=== PATIENT | male | born 1945 | race Two or more races ===

== ENCOUNTER 2024-04-16 23:55 | Inpatient (IN) | payer MEDICARE, SELFPAY ==
[2024-04-16 23:57] VITALS: PULSE 93; RESP 18; O2SAT 98; BMI 20.3
--- NOTE | 2024-04-17 00:03 | XR_ITS ---
Examination: Bilateral hips, AP pelvis, 5 views Technique: AP, lateral views both hips, AP pelvis, 5 views Exam date and time: April 17, 2024 0013 hours INDICATIONS: Patient fell today with injury to both hips, bilateral hip pain FINDINGS: Acute angulated left femoral neck fracture This fracture may also be intertrochanteric, coned AP view Right hip intact as well as bones of the pelvis Severe osteopenia IMPRESSION: Complex left hip fracture, angulated involving the femoral neck and suspicious for involving the intertrochanteric region left hip Recommend CT scan left hip without contrast follow-up
[2024-04-17 00:04] VITALS: BP 117/63; PULSE 87; RESP 20; TEMP 37.1; O2SAT 91
--- NOTE | 2024-04-17 00:05 | XR_ITS ---
Examination: AP chest single view Technique one AP portable semiupright chest single view Exam date and time: April 17, 2024 0011 hours INDICATIONS: Patient fell today with into the chest, chest pain FINDINGS: Mild to moderate elevation right hemidiaphragm Normal heart size No pneumothorax Interstitial disease throughout the lungs Prominent osteopenia IMPRESSION: No pneumothorax pulmonary contusion or hemothorax Clavicles ribs appear intact Abnormal interstitial disease throughout the lungs, differential would include pneumonia, pulmonary fibrosis
--- NOTE | 2024-04-17 00:10 | PD.EDFALL ---
ED Fall Injury RME/HPI General Chief Complaint: Fall Stated Complaint: FALL Time Seen by Provider: 04/17/24 00:17 Arrival date/time: 04/16/24 23:55 RME / HPI RME / HPI Narrative: Dr. Cooper?s Main ED Evaluation: 78yo male with a history of dementia, HTN, hypothyroidism BIBA from [facility] presents to the ED for a fall that occurred just [employer]. Per EMS, patient was initially complaining of left hip pain. Patient currently denies left hip pain or any other associated symptoms. Of note, the patient is confused at baseline. No known allergies. Patient is a full code. Related Data Allergies Allergy/AdvReac Type Severity Reaction Status Date / Time No Known Allergies Allergy Verified 04/17/24 00:02 Review of Systems Review of Systems Systems Reviewed: All systems reviewed, normal except as documented ED Exam Narrative Physical exam: GENERAL APPEARANCE: alert and oriented x 2, well-developed, well-nourished, no acute distress VITALS: All vitals were reviewed and the pulse ox is 94% on room air, which is normal according to my interpretation. HEENT: Normocephalic, atraumatic; pupils equal, round, reactive to light; EOMI; mucous membranes pink, moist; oropharynx clear NECK: Supple LUNGS: CTABL; no wheezes, no rales, no rhonchi HEART: Regular rate, regular rhythm; normal S1, S2; no murmurs ABDOMEN: non distended; normal BS; soft, no tenderness, no guarding, no rebound; no masses, no organomegaly, no hernia BACK: no CVA tenderness EXTREMITIES: LLE is shortened and externally rotated; no edema NEUROLOGIC: awake; alert and oriented x 2; cranial nerves II-XII grossly intact; no focal sensory or motor deficits PSYCHIATRIC: appropriate mood and affect SKIN: warm, dry, normal color; no rashes Course Course Course Narrative: CXR is ordered to r/o pneumothorax. Quality Measures none Orders Category Date Time Status Sizing Machine Operator STAT Care 04/17/24 00:27 Active Continuous Pulse Oximetry ONCE Care 04/17/24 00:27 Active EKG (ED ONLY) *Do not use* NOW Care 04/17/24 00:27 Active Insert IV STAT Care 04/17/24 00:27 Active Consult to Cardiology Stat Cons 04/17/24 00:37 Ordered Consult to Orthopedic Stat Cons 04/17/24 00:36 Ordered EKG (ED Only) Stat Exams 04/17/24 00:27 Draft XR chest 1V portable Stat Exams 04/17/24 00:05 Taken XR hip BI w pelvis 3-4V Stat Exams 04/17/24 00:03 Taken B-Type Natriuretic Peptide Stat Lab 04/17/24 00:35 Received CBC Stat Lab 04/17/24 00:35 Received Comprehensive Metabolic Panel Stat Lab 04/17/24 00:35 Received Free T4 (Free Thyroxine) Stat Lab 04/17/24 00:35 Received Lipase Stat Lab 04/17/24 00:35 Received Magnesium Stat Lab 04/17/24 00:35 Received Partial Thromboplastin Time Stat Lab 04/17/24 00:35 Received Prothrombin Time with INR Stat Lab 04/17/24 00:35 Received Troponin I Stat Lab 04/17/24 00:35 Received Sodium Chloride 0.9% 500 ml [Ns] 500 ml Med 04/17/24 00:26 Active IV 999 mls/hr Vital Signs Vital signs: Vital Signs Temperature 98.8 F 04/17/24 00:04 Pulse Rate 87 04/17/24 00:04 Respiratory Rate 20 04/17/24 00:04 Blood Pressure 117/63 04/17/24 00:04 Pulse Oximetry (%) 91 L 04/17/24 00:04 Oxygen Delivery Method Room Air 04/17/24 00:04 Fall MDM Narrative MDM Narrative:: Scribe Attestation: 04/17/24 Dani Solis, Mallika Faith am scribing for and in the presence of Dr. Cooper. Patient data External records reviewed:: [facility] previous records (Per chart review, patient has) and Retirement records (Per [facility], patient is a full code.) Clinical information provided by:: patient Social determinants that could affect healthcare access:: housing (Pt resides in a SNF.) Patient has the following chronic illnesses:: dementia, HTN, hypothyroidism How is presenting disease/condition affected by chronic disease/condition?: uneffected by Evaluation data The following diagnostics were reviewed and interpreted by me:: lab results (ordered, but are pending at the time of admission), radiology exam(s) and EKG tracing(s) Lab and/or radiology exams considered but not ordered:: none Interpretation Summary: Left hip x-ray shows a femoral neck fracture, no dislocation, no soft tissue swelling, according to my interpretation. CXR shows elevated right hemidiaphragm, chronic changes, no infiltrates, according to my interpretation. EKG done at 0044, NSR, rate of 82, left axis deviation, no ectopy, Q waves in lead III and avF, no signs of acute ischemia, according to my interpretation. Medications / Prescriptions Medications or Prescriptions considered but not ordered:: none Medication administrations:: Medication Administration History Sodium Chloride (Ns) 500 mls @ 999 mls/hr IV .Q31M ONE Stop: 04/17/24 00:56 see above Consultations Consultation(s) initiated? (list below): Yes Consultation #1 (Physician, Specialty, Details): Discussed case with [Dr. Rice] from [orthopedic surgery] regarding [consultation]. Discussed patients ED course, exam findings, labs, and radiology results. Agrees to consult. Requests cardiology consult for pre-op clearance. Time: 00:35 Consultation #2 (Physician, Specialty, Details): Discussed case with [Dr. Avelar] from Hospitalist service regarding admission. Discussed patients ED course, exam findings, labs, and radiology results. The Hospitalist [agrees] to accept the patient for admission. Time: 00:39 Diagnosis Fall Differential Diagnosis: other (fracture, dislocation, contusion) Most likely diagnosis given after review of the tests above:: see below Admission Indicated Admission indicated?: indicated Admission Request Was there a request for admission?: Yes Admission Attestation Admission request attestation: Discussed case with [] from Hospitalist service regarding admission. Discussed patients ED course, exam findings, labs, and radiology results. The Hospitalist [agrees,declines] to accept the patient for admission. Disposition Plan Disposition Plan: Admit Discharge Plan Plan Patient Disposition: Admit Acute Care w/in Hospital Disposition Comment: Admit to Dr. Avelar, Consult Dr. Rice Problem List Clinical Impression: Closed fracture of neck of left femur Patient/Caregiver Discharge Instructions Print Language: Croatian Stand Alone Forms: Sarah Award Info., Patient Portal Info Letter
--- NOTE | 2024-04-17 00:27 | EKG_ITS ---
[facility] Test Date: 2024-04-17 Pat Name: LILLY WHITE Department: Room: - Gender: Male Software Security Architect: : 1945 Requested By: Frandy Lozano Order Number: [id number] Reading MD: Frandy Lozano Measurements Intervals Etoile Rate: 82 P: 42 CO: 203 QRS: -13 QRSD: 93 T: 33 QT: 365 QTc: 428 Interpretive Statements SINUS RHYTHM LOW QRS VOLTAGE IN PRECORDIAL LEADS [QRS DEFLECTION < 1.0 mV IN CHEST LEADS] No previous ECG available for comparison /store/S0/[id number].pdf
[2024-04-17 00:54] LABS: Basophils # (Auto) 0.1 Thou/mm3 (0.0-0.2); Basophils % (Auto) 1 % (0-2.5); Eosinophils # (Auto) 0.3 Thou/mm3 (0.0-0.5); Eosinophils % (Auto) 3 % (0-10); Hematocrit 44.2 % (41.0-53.0); Hemoglobin 14.6 g/dL (13.5-16.0); Immature Granulocytes % (Auto) 1 % (0-0); Immature Granulocytes Auto 0.06 Thou/mm3 (0.00-0.00); Lymphocytes # (Auto) 2.3 Thou/mm3 (1.0-4.8); Lymphocytes % (Auto) 23 % (10-50); Mean Corpuscular Hemoglobin 29.6 pg (25.0-35.0); Mean Corpuscular Volume 90 fL (80-100); Monocytes # (Auto) 0.9 Thou/mm3 (0.0-0.8); Monocytes % (Auto) 9 % (0-12); Neutrophils # (Auto) 6.4 Thou/mm3 (1.8-7.7); Neutrophils % (Auto) 63 % (37-80); Nucleated Red Blood Cell % 0 /100 WBC (0); Platelet Count 261 Thou/mm3 (140-440); RDW Standard Deviation 45.7 fL (35.1-43.9); Red Blood Count 4.94 Miln/mm3 (4.50-5.90); White Blood Count 10.1 Thou/mm3 (3.8-10.6)
[2024-04-17 01:01] LABS: B-Type Natriuretic Peptide 29 pg/mL (0-100)
[2024-04-17 01:04] LABS: Alanine Aminotransferase 12 U/L (10-49); Albumin, Serum 4.2 gm/dL (3.4-4.8); Albumin/Globulin Ratio 1.2 (1.2-2.2); Alkaline Phosphatase 93 U/L (46-116); Anion Gap 8 (7-16); Aspartate Amino Transferase 18 U/L (0-34); BUN/Creatinine Ratio 21 Ratio (12-20); Bilirubin,Total 0.5 mg/dL (0.3-1.2); Blood Urea Nitrogen 30 mg/dL (9-23); Calcium 9.4 mg/dL (8.3-10.6); Calcium (Corrected) 9.4 mg/dL (8.5-10.1); Carbon Dioxide 27.1 mMol/L (20.0-31.0); Chloride 104 mMol/L (98-107); Creatinine (Component) 1.4 mg/dL (0.6-1.3); Estimated Creatinine Clearance 35.1 mL/min (>60); Free T4 (Free Thyroxine) 1.08 ng/dL (0.89-1.76); Globulin 3.5 gm/dL (2.3-3.5); Glucose 98 mg/dL (74-106); INR 1.1 (0.9-1.3); Lipase 62 U/L (12-53); Magnesium 2.1 mg/dL (1.6-2.6); Osmolality,Calculated 283 (275-295); Partial Thromboplastin Time 24.8 Seconds (22.0-36.0); Prothrombin Time 11.7 Seconds (9.0-12.2); Sodium 139 mMol/L (136-145); Total Protein 7.7 gm/dL (5.7-8.2); Troponin I < 0.020 ng/mL (0.0-0.045); eGFR 51 See Note
[2024-04-17] MEDS: SODIUM CHLORIDE 0.9% 500 ML 500 ML 999 ML IV (01:05)
--- NOTE | 2024-04-17 01:24 | PD.RESHP ---
Documentation for date of: 04/17/24 HPI History of Present Illness Chief complaint: Ground Level fall History of present illness: HPI: Patient is a Citizen Of [place]-speaking, interaction facilitated by registered healthcare loom operator. Patient poor historian and majority of history taken from ED notes and SNF notes. Patient is an 78-year-old male with a past medical history significant for essential hypertension and dementia presenting today with a chief complaint of a ground-level fall brought in by ambulance from [facility]. Patient only oriented to self and not complaining of any pain or other symptoms. ED course: BP 117/63, pulse 87, RR 20, temp 98.8 F, SpO2 91% on room air. Labs significant for Hb 14.6, HCT 44.2, BUN 33, CR 1.4, lipase 62. Chest x-ray significant for unfolding of the aorta, poor inspiratory effort, no obvious signs of consolidation, pulmonary edema or pleural effusion. Hip x-ray significant for left acute displaced femoral neck fracture. EKG significant for sinus rhythm, rate 92, incomplete RBBB. No acute ST changes. Patient received 1 L normal saline IV fluid bolus Patient will be admitted for treatment and management of acute left femoral neck fracture. Orthopedics, Dr. Rice consulted and is closely following the case. Appreciate recommendations Cardiology,consulted and is closely following the case. Appreciate recommendations Review of Systems Review of Systems ROS Unobtainable: unobtainable due to mental status Past Medical History Past Medical History Comments PMH COMMENT: Past medical history: - Essential hypertension ? Left hip fracture ? Dementia Medication list: ? Acetaminophen as needed ? Ondansetron as needed Past surgical history: ? Unknown Allergies: ? NKAFDA Social history: Patient is a resident of [facility]. Exam Vital Signs Temp Pulse Resp BP Pulse Ox O2 Del Method 98.8 F 87 20 117/63 91 L Room Air 04/17/24 00:04 04/17/24 00:04 04/17/24 00:04 04/17/24 00:04 04/17/24 00:04 04/17/24 00:04 Narrative Exam Constitutional Alert, oriented x 1 [Person] and comfortable. Elderly male. HEENT Vision grossly intact. Patent nares. Trachea midline Respiratory Chest normal on inspection and clear auscultation bilaterally Cardiovascular S1 and S2 audible, RRR. No murmurs carotid bruit. No gross JVD. Abdominal Soft and non tender to palpation in all quadrants. BS + Genitourinary No bladder tenderness, no flank pain. Normal to palpation Musculoskeletal Extremities tone within normal limits. No LE edema. Left leg shortened and externally rotated. Neurological CN II - XII grossly intact. Extremity motor and sensation grossly intact. Skin Warm, dry and intact. Excoriations multiple on patient's legs and chest Psychiatric Patient has good affect, is cooperative Results: Labs 04/17/24 04:20 04/17/24 04:20 Labs: Short CBC 04/17/24 Range/Units 00:35 WBC 10.1 (3.8-10.6) Thou/mm3 Hgb 14.6 (13.5-16.0) g/dL Hct 44.2 (41.0-53.0) % Plt Count 261 (140-440) Thou/mm3 BMP 04/17/24 00:35 Sodium 139 Potassium 4.0 Chloride 104 Carbon Dioxide 27.1 BUN 30 H Creatinine 1.4 H Glucose 98 Calcium 9.4 Cardiac Enzymes 04/17/24 Range/Units 00:35 Troponin I < 0.020 (0.0-0.045) ng/mL Liver Function 04/17/24 Range/Units 00:35 Total Bilirubin 0.5 (0.3-1.2) mg/dL AST 18 (0-34) U/L ALT 12 (10-49) U/L Alkaline Phosphatase 93 (46-116) U/L Albumin 4.2 (3.4-4.8) gm/dL Quality Measures Quality Measures none Advance care planning discussed with:: other (POLST form) Medications Home Medications and Allergies Home Medications ?Medication ?Instructions ?Recorded ?Confirmed ?Type melatonin 5 mg tablet 5 mg PO HS PRN Insomnia 04/17/24 04/17/24 History multivit,tx with iron 27 1 tab PO QDAY 04/17/24 04/17/24 History iz-[id number] acid 0.4 mg-minerals tablet ondansetron 4 mg disintegrating 4 mg PO Q6H PRN Nausea 04/17/24 04/17/24 History tablet Allergies Allergy/AdvReac Type Severity Reaction Status Date / Time No Known Allergies Allergy Verified 04/17/24 00:02 Visit Medications Acetaminophen (Acetaminophen 325 Mg Tablet) 650 mg PO Q6H PRN PRN Reason: Fever >101.5 Stop: 02/09/25 01:05 Heparin Sodium (Porcine) (Heparin Sod Inj 5000 Unit/Ml Vial) 5,000 unit SC Q8HR [facility] Stop: 05/01/24 05:59 Sodium Chloride (Ns) 1,000 mls @ 75 mls/hr IV .[id number] [facility] Stop: 04/17/24 14:34 Morphine Sulfate (Morphine Sulf Inj 10 Mg/Ml Vial) 2 mg IVP Q4H PRN PRN Reason: PAIN SCALE 7-10 (Severe Stop: 04/22/24 01:05 Discontinued Medications Sodium Chloride (Ns) 500 mls @ 999 mls/hr IV .Q31M ONE Stop: 04/17/24 00:56 Last Admin: 04/17/24 01:05 Dose: 999 mls/hr Assessment & Plan Plan Patient is a Citizen Of [place]-speaking, interaction facilitated by registered healthcare loom operator. Patient poor historian and majority of history taken from ED notes and SNF notes. Patient is an 78-year-old male with a past medical history significant for essential hypertension and dementia presenting today with a chief complaint of a ground-level fall brought in by ambulance from [facility]. Patient will be admitted for treatment and management of acute left femoral neck fracture. 1. Ground-level fall 2. Acute left femoral neck fracture Patient had a ground-level fall at [facility]. On exam patient's left lower extremity shortened and externally rotated. On hip x-ray, left femoral neck fracture. Plan: ? N.p.o. ? Maintenance IV fluids normal saline at 75 cc/hour ? Acetaminophen 650 Mg p.o. every 6 hourly as needed for fever ? Morphine 2 Mg IV Q4 hourly as needed for pain 7?10 ? Cardiology consulted for cardiac clearance. ? Orthopedics, Dr. Rice consulted and closely following the case. Appreciate recommendations 3. Acute Kidney Injury Prerenal vs renal On admission patient's CR 1.4 Most likely prerenal due to poor oral intake. Plan: ? Maintenance IV fluids normal saline at 75 cc/hour ? Avoid nephrotoxic agent ? Renally dose medication 4. Essential hypertension On admission BP 117/63 Patient does not appear to be on any home medication Plan: ? Monitor blood pressures while in hospital 5. Dementia At baseline patient is oriented to self only. Health maintenance: Disposition: Awaiting Ortho recs, Cardiology clearance Diet: NPO Lines: pIVs GI Prophylaxis: None Thrombo Prophylaxis: Heparin Code status: FULL CODE Plan of care discussed with Attending Dr. Valentino Aggawral MD PGY 1 Attending Provider Attestation/Addendum Pt was evaluated and plan formulated together with the housestaff team. I have reviewed the residents note above and agree with most of its content. Please refer to the residents note for additional details.
[2024-04-17 03:00] VITALS: BP 121/79; PULSE 74; RESP 18; TEMP 36.4; O2SAT 97
[2024-04-17] MEDS: SODIUM CHLORIDE 0.9% 1000 ML 1,000 ML 75 ML IV (03:11)
[2024-04-17 04:54] LABS: Basophils # (Auto) 0.1 Thou/mm3 (0.0-0.2); Basophils % (Auto) 0 % (0-2.5); Eosinophils # (Auto) 0.1 Thou/mm3 (0.0-0.5); Eosinophils % (Auto) 1 % (0-10); Hematocrit 44.9 % (41.0-53.0); Hemoglobin 14.8 g/dL (13.5-16.0); Immature Granulocytes % (Auto) 1 % (0-0); Immature Granulocytes Auto 0.07 Thou/mm3 (0.00-0.00); Lymphocytes # (Auto) 1.4 Thou/mm3 (1.0-4.8); Lymphocytes % (Auto) 11 % (10-50); Mean Corpuscular Hemoglobin 29.5 pg (25.0-35.0); Mean Corpuscular Volume 89 fL (80-100); Monocytes # (Auto) 0.7 Thou/mm3 (0.0-0.8); Monocytes % (Auto) 6 % (0-12); Neutrophils % (Auto) 81 % (37-80); Nucleated Red Blood Cell % 0 /100 WBC (0); Platelet Count 261 Thou/mm3 (140-440); RDW Standard Deviation 45.2 fL (35.1-43.9); Red Blood Count 5.02 Miln/mm3 (4.50-5.90); White Blood Count 12.4 Thou/mm3 (3.8-10.6)
[2024-04-17 05:07] LABS: Anion Gap 7 (7-16); BUN/Creatinine Ratio 22 Ratio (12-20); Blood Urea Nitrogen 29 mg/dL (9-23); Calcium 9.3 mg/dL (8.3-10.6); Carbon Dioxide 25.6 mMol/L (20.0-31.0); Chloride 106 mMol/L (98-107); Creatinine (Component) 1.3 mg/dL (0.6-1.3); Estimated Creatinine Clearance 37.8 mL/min (>60); Glucose 111 mg/dL (74-106); Magnesium 2.1 mg/dL (1.6-2.6); Osmolality,Calculated 284 (275-295); Potassium 4.2 mMol/L (3.4-5.1); Sodium 139 mMol/L (136-145); eGFR 56 See Note
[2024-04-17 06:30] VITALS: BP 145/97; PULSE 70; RESP 16; TEMP 36.3; O2SAT 99
[2024-04-17] MEDS: HEPARIN SOD INJ 5000 UNIT/ML VIAL SC (06:48)
--- NOTE | 2024-04-17 08:00 | PC.NURSE ---
Assuming care of patient. Patient Oriented only to self. He states he does not know where he is at and he is not in pain.
[2024-04-17 08:17] LABS: Phosphorous 2.5 mg/dL (2.4-5.1)
[2024-04-17 09:00] VITALS: BP 140/93; PULSE 82; RESP 17; TEMP 36.4; O2SAT 100
--- NOTE | 2024-04-17 09:00 | ESCONSULT_ITS ---
HPI Consult details Reason for consultation narrative: Left hip pain History of present illness: Harvey is an 78-year-old male who was at [facility] and presented with a fall last night. He is alert and oriented x 1. He does have dementia and does not sign his own consents. His daughter lives in [place] who signed his consents. I talked to her extensively on the phone. He does not walk with any assistive device Past Medical History Past Medical History Comments PMH COMMENT: Dementia Meds Home Medications and Allergies Home Medications ?Medication ?Instructions ?Recorded ?Confirmed ?Type melatonin 5 mg tablet 5 mg PO HS PRN Insomnia 04/17/24 04/17/24 History multivit,tx with iron 27 1 tab PO QDAY 04/17/24 04/17/24 History kb-lsbkrwl-xihpk acid 0.4 mg-minerals tablet ondansetron 4 mg disintegrating 4 mg PO Q6H PRN Nausea 04/17/24 04/17/24 History tablet Allergies Allergy/AdvReac Type Severity Reaction Status Date / Time No Known Allergies Allergy Verified 04/17/24 00:02 Exam Vital Signs Temp Pulse Resp BP Pulse Ox O2 Del Method 97.4 F 70 16 145/97 H 99 Room Air 04/17/24 06:30 04/17/24 06:30 04/17/24 06:30 04/17/24 06:30 04/17/24 06:30 04/17/24 06:30 Additional findings Additional findings: Patient is in no acute distress and is cooperative with the examination today. Breathing is nonlabored. In no respiratory distress. Patient has no paraspinal tenderness. Spinal deformity cannot be appreciated. Bilateral extremities were evaluated and demonstrates sensation intact to light touch. Palpable pedal pulses are present. No significant edema is present. Bilateral knees were examined and the patient has full strength and range of motion.. The right hip was examined. Patient was able to flex to 90 degrees, adduct to 30 degrees, abduct to 40 degrees, internally rotate to 20 degrees, and externally rotate to 20 degrees. Patient has a negative logroll. Stinchfield is negative. The patient is nontender diffusely to touch. The left hip was examined. The Left hip is tender to palpation. He has pain with any rotation. He is shortened on the left X-rays demonstrate in a acute left displaced femoral neck fracture with shortening Results - Ortho Labs 04/17/24 04:20 04/17/24 04:20 Labs: Short CBC 04/17/24 04/17/24 Range/Units 00:35 04:20 WBC 10.1 12.4 H (3.8-10.6) Thou/mm3 Hgb 14.6 14.8 (13.5-16.0) g/dL Hct 44.2 44.9 (41.0-53.0) % Plt Count 261 261 (140-440) Thou/mm3 BMP 04/17/24 04/17/24 00:35 04:20 Sodium 139 139 Potassium 4.0 4.2 Chloride 104 106 Carbon Dioxide 27.1 25.6 BUN 30 H 29 H Creatinine 1.4 H 1.3 Glucose 98 111 H Calcium 9.4 9.3 Cardiac Enzymes 04/17/24 Range/Units 00:35 Troponin I < 0.020 (0.0-0.045) ng/mL Liver Function 04/17/24 Range/Units 00:35 Total Bilirubin 0.5 (0.3-1.2) mg/dL AST 18 (0-34) U/L ALT 12 (10-49) U/L Alkaline Phosphatase 93 (46-116) U/L Albumin 4.2 (3.4-4.8) gm/dL Assessment & Plan Problem List (1) Closed fracture of neck of left femur: Status: Acute Assessment and plan: Patient is an 78-year-old Male with dementia and a left displaced femoral neck fracture. He is alert and orient x 1 and his daughter who lives in [place] signs his consents. I talked to her extensively on the phone. I discussed different treatment options including nonoperative treatment versus a hemiarthroplasty. The Daughter would like to proceed with a left hip hemiarthroplasty. I discussed the risk of the surgery including infection, dislocation, fracture, medical complications from having surgery at his age. He is fairly healthy for his age. We will plan to proceed with left hip hemiarthroplasty today -N.p.o. now -Plan for surgery today -We obtained consent with his daughter Daina by phone [phone]
[2024-04-17 11:39] VITALS: BP 149/80; PULSE 86; RESP 17; O2SAT 96
--- NOTE | 2024-04-17 12:09 | PC.NURSE ---
THIS NURSE SPOKE WITH DAUGHTER VICTOR M WHITE, DAUGHTER VERBALIZES UNDERSTANING OF SURGICAL PROCEDURE FOR LEFT HIP HEMIARTHROPLASTY, STATES SHE DOES NOT HAVE ANY QUESTIONS REGARDING SURGICAL PROCEDURE AND GIVES TELEPHONE CONSENT FOR PROCEDURE AT THIS TIME. TELEPHONE CONSENT VERIFIED BY SECOND NURSE CORIN ANAYA.
--- NOTE | 2024-04-17 13:59 | ESCONSULT_ITS ---
<Statement entered by Brennan Ray MD - 04/18/24 08:15> I have personally seen and examined the patient separately on the above date of service and discussed the plan of care with the resident. I reviewed the resident Dr. Willson consultation progress note and agree with the resident findings and plan in the note above and have also edited the documentation to reflect my findings and plan. 78-year-old male with a past medical history of essential hypertension, dementia [facility]. Patient unable to give much history and fall is thought to be mechanical. Patient complained of some left hip pain. Orthopedic surgery was consulted for further evaluation as x-rays did demonstrate acute displaced femoral neck fracture with shortening of the left leg and patient is planned for hemiarthroplasty. Cardiology consulted for further preoperative cardiac risk assessment. In the emergency department vitals appears to be stable patient is in pain. WBC manage elevated 12.4, hemoglobin is in normal range. Patient creatinine is 1.3 and BUN is 29 appears to be mildly dehydrated electrolyte appears to be in normal range. Troponins were negative liver functions just normal. Home medications do not show any antihypertensives. EKG performed showed normal sinus rhythm with low voltage in the precordial leads but no acute ST-T changes. Chest x-ray showed no acute pathology and x-ray hip showed left femoral neck fracture as noted above. Plan: Preoperative cardiac risk assessment. Patient does not have significant cardiac risk factors documented. Patient unable to provide much history but his medications are to not show patient has any history of diabetes and apart from the history of hypertension. Will need to obtain corroborative history from the daughter Daina. Patient is proposed for an intermediate risk surgery for the left femoral fracture with hemiarthroplasty. Patient will need general anesthesia which is also intermittent risk surgery. Patient baseline functional status is less than 4 points. Does not appear to have any history of diabetes mellitus on insulin CKD with creatinine greater than 4 and no history of stroke except that he has dementia EKG showed normal sinus rhythm without acute ST-T changes except for low voltage in the precordial leads. Echo ordered along with TSH A1c and lipid panel for further cardiac risk stratification. Overall patient RCRI risk score is 0 and appears to be a low cardiac risk for the surgery as he does not have any symptoms of heart failure or unstable arrhythmias or elevated troponins or any evidence of VT but will await for the echocardiogram. Possible mild KATIE with creatinine of 1.4 and BUN of 13 secondary to poor oral intake and recommend to continue IV hydration for now. Management of rest of the medical conditions as per primary team and other consultants. Thank you for the consult and allowing me to participate in the care of the patient. Cardiology will continue to follow. Brennan Ray M.D. Interventional Cardiology HPI Data of Consult Requesting Physician: Javier Avelar MD Admitting Provider: Javier Avelar MD Attending Provider: Javier Avelar MD Primary Care Provider: Cm Palmer MD Consult Narrative History of present illness: HPI is limited as patient has poor historian and is refusing to answer questions Harvey is an 78 y/o male with PMHx past medical history of essential hypertension and (dementia?) who is brought in [facility] from [facility] for an evaluation of a ground-level fall, with no syncope or head trauma. Patient is a poor historian, Macanese-speaking as well. He refuses to answer majority of questions and also be examined and a majority of history is obtained through chart review and through information I can get from him. He says that he is in the hospital, but is unsure why. Patient is not fully oriented to time and environment. Chart review does show pt has dementia but has no dementia medicines upon [facility] rec. Upon review, primary contact is daughter named Daina. Cardiology consulted for cardiac clearance for this pt to undergo possible surgical intervention ED course: Patient arrived to the ED with a blood pressure of 117/63, pulse of 87, respiratory rate of 20, temperature of 98.8, oxygen saturation of 91% on room air. Patient was worked up and was found to have a hemoglobin of 14.6, BUN and creatinine of 33 and 1.4 respectively, glucose of 111, magnesium was 2.1, potassium of 4.2 EKG showed normal sinus rhythm rate of [address] changes. X-ray of hip showed evidence for left femoral neck hip fracture. Orthopedic was consulted for intervention in addition with cardiology for clearance. Patient was given 1 L and started on maintenance fluids. Medical history: As above Surgeries: Unknown Medicines: Acetaminophen, Dulcolax, melatonin, Zofran, MiraLAX, senna, multivitamins, Fleet Enema, milk of mag Allergies no known allergies Family history: Unknown Social history: Coming from [facility] cc:: cc: Javier Avelar MD Review of Systems Review of Systems Narrative Review of Systems: Limited as pt is poor historian and does not want to answer questions Denies having any hip pain or pain throughout his body Exam Vital Signs Temp Pulse Resp BP Pulse Ox O2 Del Method 97.6 F 86 17 149/80 H 96 Room Air 04/17/24 09:00 04/17/24 11:39 04/17/24 11:39 04/17/24 11:39 04/17/24 11:39 04/17/24 11:39 Narrative Exam Physical exam is limited as patient did not want to be examined General: AAOx1, NAD, norwegian speaking male HEENT: Moist mucous membranes, conjunctiva clear, EOMI, PERRLA, Cardiovascular: S1, S2, radial pulses +2 bilat, RRR Pulmonary: CTAB bilat no cough, no wheezing GI: No tenderness to light or deep palpitation, no guarding, rigidity, rebound tenderness or distension Extremities: No presence of trace or pitting edema in lower extremities bilaterally, dorsalis pedis pulses +2 bilaterally MSK: L hip and proximal IT band taut and some bruising however no skin discoloration, bandage over L femoral hip near Neuro: AAOx1 Psych: Non cooperative Results Labs 04/17/24 04:20 04/17/24 04:20 Labs: Short CBC 04/17/24 04/17/24 Range/Units 00:35 04:20 WBC 10.1 12.4 H (3.8-10.6) Thou/mm3 Hgb 14.6 14.8 (13.5-16.0) g/dL Hct 44.2 44.9 (41.0-53.0) % Plt Count 261 261 (140-440) Thou/mm3 BMP 04/17/24 04/17/24 00:35 04:20 Sodium 139 139 Potassium 4.0 4.2 Chloride 104 106 Carbon Dioxide 27.1 25.6 BUN 30 H 29 H Creatinine 1.4 H 1.3 Glucose 98 111 H Calcium 9.4 9.3 Cardiac Enzymes 04/17/24 Range/Units 00:35 Troponin I < 0.020 (0.0-0.045) ng/mL Liver Function 04/17/24 Range/Units 00:35 Total Bilirubin 0.5 (0.3-1.2) mg/dL AST 18 (0-34) U/L ALT 12 (10-49) U/L Alkaline Phosphatase 93 (46-116) U/L Albumin 4.2 (3.4-4.8) gm/dL Quality Measures Quality Measures none Advance care planning discussed with:: patient Medications Home Medications and Allergies Home Medications ?Medication ?Instructions ?Recorded ?Confirmed ?Type melatonin 5 mg tablet 5 mg PO HS PRN Insomnia 04/17/24 04/17/24 History multivit,tx with iron 27 1 tab PO QDAY 04/17/24 04/17/24 History jf-axhhvmq-paxiv acid 0.4 mg-minerals tablet ondansetron 4 mg disintegrating 4 mg PO Q6H PRN Nausea 04/17/24 04/17/24 History tablet Allergies Allergy/AdvReac Type Severity Reaction Status Date / Time No Known Allergies Allergy Verified 04/17/24 00:02 Visit Medications Acetaminophen (Acetaminophen 325 Mg Tablet) 650 mg PO Q6H PRN PRN Reason: Fever >100.3 or pain 1-3 Stop: 05/17/24 01:05 Sodium Chloride (Ns) 1,000 mls @ 75 mls/hr IV .[id number] KALLI Stop: 04/17/24 14:34 Last Admin: 04/17/24 03:11 Dose: 75 mls/hr Morphine Sulfate (Morphine Sulf Inj 10 Mg/Ml Vial) 2 mg IVP Q4H PRN PRN Reason: PAIN SCALE 7-10 (Severe Stop: 04/22/24 01:05 Discontinued Medications Acetaminophen (Acetaminophen 325 Mg Tablet) 650 mg PO Q6H PRN PRN Reason: Fever >101.5 Stop: 05/17/24 01:05 Heparin Sodium (Porcine) (Heparin Sod Inj 5000 Unit/Ml Vial) 5,000 unit SC Q8HR KALLI Stop: 05/01/24 05:59 Last Admin: 04/17/24 06:48 Dose: 5,000 unit Sodium Chloride (Ns) 500 mls @ 999 mls/hr IV .Q31M ONE Stop: 04/17/24 00:56 Last Infusion: 04/17/24 01:51 Dose: Infused Assessment & Plan Plan Assessment Harvey is an 78 y/o male with PMHx past medical history of essential hypertension and (dementia?) who is brought in BIB[facility] from [facility] who is admitted for L femoral neck hip fracture that will require surgical intervention. #L femoral neck hip fracture Patient will require cardiac clearance for this surgery Upon reviewing information that we have been using revised cardiac index patient has 0 points calculated with the risk of major cardiac event 3.9% Will get further information to review to further stratify patient on a cardiac level Unsure if patient is on any blood thinners, hemoglobin stable ~14 EKG showed low voltage, NSR, rate 82, no ST changes Unsure if pt has CKD, however, Cr 1.4 Further risk stratification limited as pt does not provide much information and he is AAOx1 Plan: ? Orthopedic surgery, Dr. Rice, on consult appreciate recs ?A1c, lipid panel, TSH to further classify patient's cardiac risk #History of hypertension Unsure if patient is on blood pressure medicines at home none reviewed upon med rec Plan: ? Wait upon med rec #?KATIE on CKD Do not have baseline on patient, patient came with a creatinine of 1.4, currently at 1.3 Was given 1 L in the ER and also started on maintenance fluids Plan: ?Continue with fluids ?Trend with CMP Patient seen and care discussed with my attending physician, Dr. Flor Cruz, PGY-1
--- NOTE | 2024-04-17 14:15 | ESPR_ITS ---
<Statement entered by Alfonzo Lugo MD - 04/17/24 21:04> This patient is a 78-year-old male with past medical history of hypertensionadmitted last night for left hip/femur neck fracture due to ground- level fall. Cardiology was consulted for cardiac clearance. Orthopedics, Dr. Ch has been consulted for possible surgery. Vitals were stable. WBC count was 12.4. Kidney function showed BUN 29 creatinine 1.3. Patient had mild KATIE. Patient is currently receiving pain regime. Orthopedics reported that he could not perform surgery until Saturday therefore diet was resumed. Will likely follow-up on further recommendations and continue with pain management. Rest of the labs look unremarkable. All labs and orders were reviewed. I saw and examined the patient, and I agree with current management stated by Dr Zeyad MD,PGY1. Plan of care was discussed with the attending physician and resident physician. Disclaimer: Despite multiple revisions, due to the dictation software being used, the document bellow may not be free of grammatical errors including phonetic/typographic errors. However, this does not deter from our commitment to providing health care in the patient's best interest in mind. Dr. Kip MD, PGY 2 Documentation for date of: 04/17/24 Subjective Subjective Interval history: Patient is a 78-year-old male with a limited past medical history with dementia (only melatonin was started), hypertension, generalized weakness, and dysphagia who was admitted secondary to femur neck fracture. Unable to gather pertinent past medical history from patient or symptoms. Patient kept repeating leave me alone. Patient was alert but not oriented x 3. Cardiology consulted. Dr. Rice will schedule patient for Saturday morning for surgery. Exam Vital Signs Temp Pulse Resp BP Pulse Ox O2 Del Method 97.6 F 86 17 149/80 H 96 Room Air 04/17/24 09:00 04/17/24 11:39 04/17/24 11:39 04/17/24 11:39 04/17/24 11:39 04/17/24 11:39 Narrative Exam General Appearance: Alert & Oriented X0, well-nourished male who is lying in bed in mild distress but NOT grimacing from pain. Palpated left leg, no acute distress noted. HEENT: Skull symmetrical and atraumatic. Conjunctivae pale pink and moist. Pupils equal, round, reactive to light and accommodation (PERRL). External ear without lesion or discharge. Straight, nares patient, mucosa pink, no discharge. No thyroid nodule appreciated. No cervical lymphadenopathy. Cardio: Normal Rate and Rhythm with S1 and S2 heart sounds. No murmurs or extra heart sounds auscultated. No bruits on carotid auscultation. No peripheral edema or cyanosis. Lungs: Symmetric with good expansion. Chest and back non-tender. Breath sounds vesicular without crackles, wheezing or rhonchi Abdomen: Non-tender, Non-distended, Normal Reactive Bowel Sounds Neuro: YES Alert, NOT cooperative, NO oriented to NO person, NO place, and NO time. Aphasic. CN grossly intact. Difficult to evaluate as patient does not follow commands and unable to access motor, 2/5 at least patient does withdrawal to tough. Sensation intact. Objective Labs 04/17/24 04:20 04/17/24 04:20 Labs: Laboratory Results - last 24 hr 04/17/24 04/17/24 00:35 04:20 WBC 10.1 12.4 H RBC 4.94 5.02 Hgb 14.6 14.8 Hct 44.2 44.9 MCV 90 89 MCH 29.6 29.5 MCHC 33.0 33.0 RDW Std Deviation 45.7 H 45.2 H Plt Count 261 261 Neut % (Auto) 63 81 H Lymph % (Auto) 23 11 [place] % (Auto) 9 6 Eos % (Auto) 3 1 Baso % (Auto) 1 0 Neut # (Auto) 6.4 10.0 H Lymph # (Auto) 2.3 1.4 [place] # (Auto) 0.9 H 0.7 Eos # (Auto) 0.3 0.1 Baso # (Auto) 0.1 0.1 Immature Gran # (Auto) 0.06 H 0.07 H Absolute Nucleated RBC 0.00 0.00 Immature Gran % 1 H 1 H Nucleated RBC % 0 0 PT 11.7 INR 1.1 APTT 24.8 Sodium 139 139 Potassium 4.0 4.2 Chloride 104 106 Carbon Dioxide 27.1 25.6 Anion Gap 8 7 BUN 30 H 29 H Creatinine 1.4 H 1.3 Estim Creat Clear Calc 35.1 L 37.8 L eGFR 51 L 56 L BUN/Creatinine Ratio 21 H 22 H Glucose 98 111 H Calculated Osmolality 283 284 Calcium 9.4 9.3 Corrected Calcium 9.4 Phosphorus 2.5 Magnesium 2.1 2.1 Total Bilirubin 0.5 AST 18 ALT 12 Alkaline Phosphatase 93 Troponin I < 0.020 B-Natriuretic Peptide 29 Total Protein 7.7 Albumin 4.2 Globulin 3.5 Albumin/Globulin Ratio 1.2 Lipase 62 H Free T4 1.08 Quality Measures Quality Measures none Advance care planning discussed with:: other Assessment & Plan Assessment Current Active Medications: Generic Name Dose Route Start Last Admin Trade Name Freq PRN Reason Stop Dose Admin Acetaminophen 650 mg 04/17/24 01:26 Acetaminophen 325 Mg Tablet PO 05/17/24 01:05 Q6H PRN Fever >100.3 or pain 1-3 Sodium Chloride 1,000 mls @ 75 mls/hr 04/17/24 01:15 04/17/24 03:11 Ns IV 04/17/24 14:34 75 mls/hr .[id number] KALLI Administration Morphine Sulfate 2 mg 04/17/24 01:06 Morphine Sulf Inj 10 Mg/Ml Vial IVP 04/22/24 01:05 Q4H PRN PAIN SCALE 7-10 (Severe Plan Patient is a 78-year-old male with a limited past medical history with dementia (only melatonin was started), hypertension, generalized weakness, and dysphagia who was admitted secondary to femur neck fracture. # Ground-level fall # Acute left femoral neck fracture Patient had a ground-level fall at [facility]. On exam patient's left lower extremity shortened and externally rotated. On hip x-ray, left femoral neck fracture. Plan: -Regular Diet, no surgery planned until Saturday morning ? Acetaminophen 650 Mg p.o. every 6 hourly as needed for fever ? Morphine 2 Mg IV Q4 hourly as needed for pain 7?10 ? Cardiology consulted for cardiac clearance. ? Orthopedics, Dr. Rice consulted and closely following the case. Appreciate recommendations # Acute Kidney Injury Prerenal vs renal Likely pre-renal secondary to poor oral intake Plan: ? Avoid nephrotoxic agent ? Renally dose medication # Essential hypertension On admission BP 117/63 Patient does not appear to be on any home medication Plan: ? Monitor blood pressures while in hospital # Dementia At baseline patient is oriented to self only. Plan: Consider Melatonin Health maintenance: Disposition: Awaiting Ortho recs, Cardiology clearance & regular diet Diet: regular diet Lines: pIVs GI Prophylaxis: None Thrombo Prophylaxis: Heparin Code status: FULL CODE - The patient's plan was discussed with attending Dr. Maria and senior residents Dr. Kip Jeffers MD PGY1 Internal Medicine Attending Provider Attestation/Addendum I have discussed and was present for the essential components of the history, physical examination, diagnosis, and treatment plan with the resident. I agree with the patient's care as documented by the resident and amended herein by me. Arnav Maria, DO. Patient seen and evaluated this AM. Per Ortho, unable to perform surgery today, will likely have to wait till Saturday. Will optimize pain control until that time. Although this document has been carefully reviewed, there may still be some phonetic and other typographical errors. These errors are purely grammatical due to imperfections in the software program and should not be construed in any way to compromise the substance of the patient's medical care during this visit.
--- NOTE | 2024-04-17 14:39 | PC.CC ---
Patient is a 78 year-old male who presents to the hospital for a hip fracture. Tatiana ROBB made [id number] contact with patient. Patient is not alert and oriented. DERIKW made telephone contact with patient's daughter, Sandy Jeffers to gain collateral information regarding the patient. She reports her father has been living at [facility] for the past 6 months. She states she last come to see him on and he was ambulates independendtly. Patient is full assist with his ADLs. Patient's daughter stated that she is his medical decision maker as the rest of his children are estranged. She denies there being a POA or Advance Health Care Directive in place. Patient's daughter reports that she was notified of the fall. Tatiana ROBB made contact with Aisha at [facility] to inquire about the fall. Aisha reports that the patient is a wander and walks up and down the chapin due to his dementia. Patient for some reason had his head down when he was turning left to turn around and attempted to grab the guardrail and fell. She reports he had appropriate shoes on and they were tied. Per Aisha, patient is a long-term patient of theirs. She confirmed information the daughter reported that patient is ambulatory independently. Upon discharge the patient's daughter would like for him to return back to [facility]. phlebotomy services representative to follow up with any discharge needs.
--- NOTE | 2024-04-17 15:40 | PC.NURSE ---
Daughter Sandyjohn Jeffers work phone number [phone]. Per daughter states she may be contacted on work if needed.
--- NOTE | 2024-04-17 15:44 | PD.ORTHCONPN ---
Subjective Subjective Brief History: Left hip pain Narrative: Harvey is an 78-year-old male who was at [facility] and presented with a fall last night. He is alert and oriented x 1. He does have dementia and does not sign his own consents. His daughter lives in [place] who signed his consents. I talked to her extensively on the phone. He does not walk with any assistive device Exam Vital Signs Temp Pulse Resp BP Pulse Ox O2 Del Method 97.6 F 86 17 149/80 H 96 Room Air 04/17/24 09:00 04/17/24 11:39 04/17/24 11:39 04/17/24 11:39 04/17/24 11:39 04/17/24 11:39 Additional findings Additional findings: Patient is in no acute distress and is cooperative with the examination today. Patient has a normal mood and affect. Breathing is nonlabored. In no respiratory distress. Bilateral extremities were evaluated and demonstrates sensation intact to light touch. Palpable pedal pulses are present. No significant edema is present. Left lower extremity is shortened and rotated. Range of motion was not performed secondary to pain Objective - Ortho Labs 04/20/24 04:52 04/20/24 04:52 Labs: Laboratory Results - last 24 hr 04/17/24 04/17/24 00:35 04:20 WBC 10.1 12.4 H RBC 4.94 5.02 Hgb 14.6 14.8 Hct 44.2 44.9 MCV 90 89 MCH 29.6 29.5 MCHC 33.0 33.0 RDW Std Deviation 45.7 H 45.2 H Plt Count 261 261 Neut % (Auto) 63 81 H Lymph % (Auto) 23 11 [place] % (Auto) 9 6 Eos % (Auto) 3 1 Baso % (Auto) 1 0 Neut # (Auto) 6.4 10.0 H Lymph # (Auto) 2.3 1.4 [place] # (Auto) 0.9 H 0.7 Eos # (Auto) 0.3 0.1 Baso # (Auto) 0.1 0.1 Immature Gran # (Auto) 0.06 H 0.07 H Absolute Nucleated RBC 0.00 0.00 Immature Gran % 1 H 1 H Nucleated RBC % 0 0 PT 11.7 INR 1.1 APTT 24.8 Sodium 139 139 Potassium 4.0 4.2 Chloride 104 106 Carbon Dioxide 27.1 25.6 Anion Gap 8 7 BUN 30 H 29 H Creatinine 1.4 H 1.3 Estim Creat Clear Calc 35.1 L 37.8 L eGFR 51 L 56 L BUN/Creatinine Ratio 21 H 22 H Glucose 98 111 H Calculated Osmolality 283 284 Calcium 9.4 9.3 Corrected Calcium 9.4 Phosphorus 2.5 Magnesium 2.1 2.1 Total Bilirubin 0.5 AST 18 ALT 12 Alkaline Phosphatase 93 Troponin I < 0.020 B-Natriuretic Peptide 29 Total Protein 7.7 Albumin 4.2 Globulin 3.5 Albumin/Globulin Ratio 1.2 Lipase 62 H Free T4 1.08 Imaging and cardiology hip xray: Additional comments: X-rays of the left hip demonstrate a displaced femoral neck fracture. He reports that there may be extension to the intertrochanteric region. It just looks like a very impacted displaced femoral neck fracture to me that is low. Assessment & Plan Diagnosis (1) Left displaced femoral neck fracture: Status: Acute Assessment Additional comments: The patient was given heparin this morning. We will thus delay surgery given the fact that it may be preferable to do a spinal. Will plan to do the surgery soon as possible.It is currently Scheduled as a scheduled surgery on Saturday. We will try to do it over the weekend if possible I discussed the risk and benefits of surgery with the daughter in great detail. She lives in [place]. We discussed that the risk of surgery include infection, nonunion, malunion, periprosthetic fracture, and dislocation. The patient is at high risk for dislocation given his dementia. He is a baseline ambulator with no assistive device at baseline. The fracture may have extension into the intertrochanteric region without different implants on backup for this. The daughter understands and would like to proceed with surgery Documentation for date of: 04/17/24
[2024-04-17 16:24] VITALS: BMI 22.1
--- NOTE | 2024-04-17 16:25 | PC.NURSE ---
pt arrived to unit via gurney from ED @ 1555. Pt alert to self, tamazight speaking, limited assessment due to patient noncompliance. Noted multiple scattered abrasions to bilat lower extremities and scabbed lesions to left [place]. Slight shortening LLE. Orientation provided regarding room, unit, staff and plan of care.
[2024-04-17 20:00] VITALS: BP 153/81; PULSE 95; RESP 20; TEMP 36.9; O2SAT 94
[2024-04-18] VITALS (7 sets, daily range): BP systolic 110–136; BP diastolic 72–105; PULSE 80–104; RESP 16–95; TEMP 36.2–36.7; O2SAT 90–95
[2024-04-18 06:34] LABS: Basophils % (Auto) 0 % (0-2.5); Eosinophils % (Auto) 0 % (0-10); Hematocrit 45.7 % (41.0-53.0); Hemoglobin 15.3 g/dL (13.5-16.0); Immature Granulocytes % (Auto) 0 % (0-0); Immature Granulocytes Auto 0.04 Thou/mm3 (0.00-0.00); Lymphocytes # (Auto) 1.2 Thou/mm3 (1.0-4.8); Lymphocytes % (Auto) 12 % (10-50); Mean Corpuscular HGB Conc 33.5 g/dl (31.0-37.0); Mean Corpuscular Hemoglobin 29.7 pg (25.0-35.0); Mean Corpuscular Volume 89 fL (80-100); Monocytes % (Auto) 9 % (0-12); Neutrophils # (Auto) 8.3 Thou/mm3 (1.8-7.7); Neutrophils % (Auto) 78 % (37-80); Nucleated Red Blood Cell % 0 /100 WBC (0); Platelet Count 280 Thou/mm3 (140-440); RDW Standard Deviation 44.9 fL (35.1-43.9); Red Blood Count 5.15 Miln/mm3 (4.50-5.90); White Blood Count 10.6 Thou/mm3 (3.8-10.6)
[2024-04-18 07:12] LABS: Alanine Aminotransferase 11 U/L (10-49); Albumin, Serum 4.5 gm/dL (3.4-4.8); Albumin/Globulin Ratio 1.3 (1.2-2.2); Alkaline Phosphatase 90 U/L (46-116); Anion Gap 10 (7-16); Aspartate Amino Transferase 20 U/L (0-34); BUN/Creatinine Ratio 16 Ratio (12-20); Bilirubin,Total 1.5 mg/dL (0.3-1.2); Blood Urea Nitrogen 18 mg/dL (9-23); Calcium 9.4 mg/dL (8.3-10.6); Calcium (Corrected) 9.4 mg/dL (8.5-10.1); Carbon Dioxide 23.6 mMol/L (20.0-31.0); Chloride 104 mMol/L (98-107); Creatinine (Component) 1.1 mg/dL (0.6-1.3); Estimated Creatinine Clearance 48.6 mL/min (>60); Globulin 3.6 gm/dL (2.3-3.5); Glucose 86 mg/dL (74-106); Osmolality,Calculated 276 (275-295); Potassium 3.7 mMol/L (3.4-5.1); Sodium 138 mMol/L (136-145); Total Protein 8.1 gm/dL (5.7-8.2); eGFR > 60 See Note
[2024-04-18] MEDS: NAPH,KPH MBDB 1 PACKET (1.5 GM) PO (09:18)
[2024-04-18] MEDS: HEPARIN SOD INJ 5000 UNIT/ML VIAL SC ×2 (09:18→21:12)
[2024-04-18] MEDS: POLYETHYLENE GLYCOL 17 GM PACKET PO (09:18)
[2024-04-18] MEDS: HYDROcodone/APAP 5/325 TABLET 1 TAB PO (09:19)
[2024-04-18] MEDS: PANTOPRAZOLE 40 MG TABLET PO (09:19)
--- NOTE | 2024-04-18 11:15 | PD.RESPRO ---
Documentation for date of: 04/18/24 Subjective Subjective Interval history: Patient is a 78-year-old male with a limited past medical history with dementia (only melatonin was started), hypertension, generalized weakness, and dysphagia who was admitted secondary to femur neck fracture. No overnight events for patient. Patient is scheduled for surgery on Saturday04/20/[address] Rice. SubQ heparin started. Patinet is alert but not oriented X0. NPO after midnight on 04/20/2024 at 00:01. Exam Vital Signs Temp Pulse Resp BP Pulse Ox O2 Del Method 98.0 F 80 16 110/88 H 94 L Room Air 04/18/24 08:00 04/18/24 11:09 04/18/24 11:09 04/18/24 08:00 04/18/24 08:00 04/18/24 08:00 Narrative Exam General Appearance: Alert & Oriented X0, well-nourished male who is lying in bed in mild distress but NOT grimacing from pain. Palpated left leg, no acute distress noted. HEENT: Skull symmetrical and atraumatic. Conjunctivae pale pink and moist. Pupils equal, round, reactive to light and accommodation (PERRL). External ear without lesion or discharge. Straight, nares patient, mucosa pink, no discharge. No thyroid nodule appreciated. No cervical lymphadenopathy. Cardio: Normal Rate and Rhythm with S1 and S2 heart sounds. No murmurs or extra heart sounds auscultated. No bruits on carotid auscultation. No peripheral edema or cyanosis. Lungs: Symmetric with good expansion. Chest and back non-tender. Breath sounds vesicular without crackles, wheezing or rhonchi Abdomen: Non-tender, Non-distended, Normal Reactive Bowel Sounds Neuro: YES Alert, NOT cooperative, NO oriented to NO person, NO place, and NO time. Aphasic. CN grossly intact. Difficult to evaluate as patient does not follow commands and unable to access motor, 2/5 at least patient does withdrawal to tough. Sensation intact. Objective Labs 04/18/24 05:47 04/18/24 05:47 Labs: Laboratory Results - last 24 hr 04/18/24 05:47 WBC 10.6 RBC 5.15 Hgb 15.3 Hct 45.7 MCV 89 MCH 29.7 MCHC 33.5 RDW Std Deviation 44.9 H Plt Count 280 Neut % (Auto) 78 Lymph % (Auto) 12 [place] % (Auto) 9 Eos % (Auto) 0 Baso % (Auto) 0 Neut # (Auto) 8.3 H Lymph # (Auto) 1.2 [place] # (Auto) 1.0 H Eos # (Auto) 0.0 Baso # (Auto) 0.0 Immature Gran # (Auto) 0.04 H Absolute Nucleated RBC 0.00 Immature Gran % 0 Nucleated RBC % 0 Sodium 138 Potassium 3.7 D Chloride 104 Carbon Dioxide 23.6 Anion Gap 10 BUN 18 Creatinine 1.1 Estim Creat Clear Calc 48.6 L eGFR > 60 BUN/Creatinine Ratio 16 Glucose 86 Calculated Osmolality 276 Calcium 9.4 Corrected Calcium 9.4 Phosphorus 2.0 L Magnesium 2.0 Total Bilirubin 1.5 H D AST 20 ALT 11 Alkaline Phosphatase 90 Total Protein 8.1 Albumin 4.5 Globulin 3.6 H Albumin/Globulin Ratio 1.3 Quality Measures Quality Measures none Advance care planning discussed with:: child (listed in SNF papers, child next of kin) Assessment & Plan Assessment Current Active Medications: Generic Name Dose Route Start Last Admin Trade Name Freq PRN Reason Stop Dose Admin Acetaminophen 650 mg 04/17/24 01:26 Acetaminophen 325 Mg Tablet PO 05/17/24 01:05 Q6H PRN Fever >100.3 or pain 1-3 Hydrocodone Bitart/Acetaminophen 1 tab 04/18/24 08:12 04/18/24 09:19 Hydrocodone/Apap 5/325 Tablet PO 04/23/24 08:11 1 tab Q4HR PRN Administration PAIN SCALE 4-6 (Moderate Heparin Sodium (Porcine) 5,000 unit 04/18/24 09:00 04/18/24 09:18 Heparin Sod Inj 5000 Unit/Ml Vial SC 05/02/24 08:59 5,000 unit BID KALLI Administration Morphine Sulfate 2 mg 04/17/24 01:06 Morphine Sulf Inj 10 Mg/Ml Vial IVP 04/22/24 01:05 Q4H PRN PAIN SCALE 7-10 (Severe Ondansetron HCl 4 mg 04/18/24 08:12 Ondansetron Inj 2 Mg/Ml Inj 2 Ml IV 05/18/24 08:11 Q6H PRN NAUSEA OR VOMITING Protocol Pantoprazole Sodium 40 mg 04/18/24 09:00 04/18/24 09:19 Pantoprazole 40 Mg Tablet PO 05/18/24 08:59 40 mg QDAY KALLI Administration Polyethylene Glycol 17 gm 04/18/24 09:00 04/18/24 09:18 Polyethylene Glycol 17 Gm Packet PO 05/18/24 08:59 17 gm QDAY KALLI Administration Sennosides 1 tab 04/18/24 08:12 Senna Tablet PO 05/18/24 08:11 QDAY PRN constipation Protocol Plan Patient is a 78-year-old male with a limited past medical history with dementia (only melatonin was started), hypertension, generalized weakness, and dysphagia who was admitted secondary to femur neck fracture. # Ground-level fall # Acute left femoral neck fracture Patient had a ground-level fall at [facility]. On exam patient's left lower extremity shortened and externally rotated. On hip x-ray, left femoral neck fracture. Plan: -Regular Diet, no surgery planned until Saturday morning ? Acetaminophen 650 Mg p.o. every 6 hourly as needed for fever, [place] 5, Morphine 2 Mg IV Q4 hourly ? Cardiology Cleared for surgery. -bowel regimen added. -Zofran ? Orthopedics, Dr. Rice consulted and closely following the case. Appreciate recommendations # Acute Kidney Injury, likely prerenal Likely pre-renal secondary to poor oral intake Plan: ? Avoid nephrotoxic agent ? Renally dose medication # Essential hypertension Patient does not appear to be on any home medication. Blood pressure within range during hospital course. Plan: ? Monitor blood pressures while in hospital # Dementia At baseline patient is oriented to self only. Plan: Melotonin PRN Plan: Consider Melatonin Health maintenance: Disposition: Awaiting Ortho, scheduled for surgery on Saturday04/20/2023. NPO on 04/20/2024 at 00:01. Diet: regular diet Lines: pIVs GI Prophylaxis: None Thrombo Prophylaxis: Heparin subq Code status: FULL CODE Attending Provider Attestation/Addendum I have discussed and was present for the essential components of the history, physical examination, diagnosis, and treatment plan with the resident. I agree with the patient's care as documented by the resident and amended herein by me. Arnav Maria DO. Although this document has been carefully reviewed, there may still be some phonetic and other typographical errors. These errors are purely grammatical due to imperfections in the software program and should not be construed in any way to compromise the substance of the patient's medical care during this visit.
[2024-04-18 12:01] LABS: Glucose Estimated Average 108 mg/dL (80-131); Hemoglobin A1C 5.4 % Hgb (4.8-6.0)
[2024-04-18 12:03] LABS: Cardiac Risk Estimate 3.5 RATIO (4.0-6.7); Cholesterol 195 mg/dL (132-200); HDL Cholesterol 55 mg/dL (40-60); LDL Cholesterol,Calculated 127 mg/dL (0-130); Thyroid Stimulating Hormone 0.78 uIU/mL (0.55-4.78); Triglycerides 63 mg/dL (30-150)
--- NOTE | 2024-04-18 12:54 | ESPR_ITS ---
<Statement entered by Brennan Ray MD - 04/19/24 05:24> I have personally seen and examined the patient separately on the above date of service and discussed the plan of care with the resident. I reviewed the resident Dr. Willson consultation progress note and agree with the resident findings and plan in the note above and have also edited the documentation to reflect my findings and plan. 78-year-old male with a past medical history of essential hypertension, dementia was brought in from the [facility] after ground-level fall. Patient unable to give much history and fall is thought to be mechanical. Patient complained of some left hip pain. Orthopedic surgery was consulted for further evaluation as x-rays did demonstrate acute displaced femoral neck fracture with shortening of the left leg and patient is planned for hemiarthroplasty. Cardiology consulted for further preoperative cardiac risk assessment. In the emergency department vitals appears to be stable patient is in pain. WBC manage elevated 12.4, hemoglobin is in normal range. Patient creatinine is 1.3 and BUN is 29 appears to be mildly dehydrated electrolyte appears to be in normal range. Troponins were negative liver functions just normal. Home medications do not show any antihypertensives. EKG performed showed normal sinus rhythm with low voltage in the precordial leads but no acute ST-T changes. Chest x-ray showed no acute pathology and x-ray hip showed left femoral neck fracture as noted above. Plan: Preoperative cardiac risk assessment. Patient does not have significant cardiac risk factors documented. Patient unable to provide much history but his medications are to not show patient has any history of diabetes and apart from the history of hypertension. Will need to obtain corroborative history from the daughter Daina. Patient is proposed for an intermediate risk surgery for the left femoral fracture with hemiarthroplasty. Patient will need general anesthesia which is also intermittent risk surgery. Patient baseline functional status is less than 4 points. Does not appear to have any history of diabetes mellitus on insulin CKD with creatinine greater than 4 and no history of stroke except that he has dementia EKG showed normal sinus rhythm without acute ST-T changes except for low voltage in the precordial leads. Echo ordered along with TSH A1c and lipid panel for further cardiac risk stratification. Overall patient RCRI risk score is 0 and appears to be a low cardiac risk for the surgery as he does not have any symptoms of heart failure or unstable arrhythmias or elevated troponins or any evidence of [place] With elevated echocardiogram performed on 1125 which showed normal LV function and RV function. Official echo will be done on Saturday. Based on the above assessment patient is at acceptable with mildly elevated cardiac risk for the proposed orthopedic surgery. Discussed with orthopedic surgeon Dr. Rice. Possible mild KATIE with creatinine of 1.4 and BUN of 13 secondary to poor oral intake and recommend to continue IV hydration for now. Improving now. Management of rest of the medical conditions as per primary team and other consultants. Thank you for the consult and allowing me to participate in the care of the patient. Cardiology will continue to follow. Brennan Ray M.D. Interventional Cardiology Documentation for date of: 04/18/24 Subjective Subjective Interval history: HPI limited as patient does not want to answer questions and is sleeping Patient examined at bedside today. No overnight events on telemetry per patient. Patient denies having any chest pain or shortness of breath. He wants to be left alone and wants to sleep at this time. No other complaints at this time Exam Vital Signs Temp Pulse Resp BP Pulse Ox O2 Del Method 97.9 F 80 17 117/90 H 95 Room Air 04/18/24 12:00 04/18/24 12:00 04/18/24 12:00 04/18/24 12:00 04/18/24 12:00 04/18/24 12:00 Narrative Exam Physical exam is limited as patient did not want to be examined General: AAOx1, NAD, lux[place]bourgish speaking male HEENT: Moist mucous membranes, conjunctiva clear, EOMI, PERRLA, Cardiovascular: S1, S2, radial pulses +2 bilat, RRR Pulmonary: CTAB bilat no cough, no wheezing GI: No tenderness to light or deep palpitation, no guarding, rigidity, rebound tenderness or distension Extremities: No presence of trace or pitting edema in lower extremities bilaterally, dorsalis pedis pulses +2 bilaterally MSK: L hip and proximal IT band taut and some bruising however no skin discoloration, bandage over L femoral hip near Neuro: AAOx1 Psych: Non-cooperative Objective Labs 04/18/24 05:47 04/18/24 05:47 Labs: Laboratory Results - last 24 hr 04/18/24 05:47 WBC 10.6 RBC 5.15 Hgb 15.3 Hct 45.7 MCV 89 MCH 29.7 MCHC 33.5 RDW Std Deviation 44.9 H Plt Count 280 Neut % (Auto) 78 Lymph % (Auto) 12 [place] % (Auto) 9 Eos % (Auto) 0 Baso % (Auto) 0 Neut # (Auto) 8.3 H Lymph # (Auto) 1.2 [place] # (Auto) 1.0 H Eos # (Auto) 0.0 Baso # (Auto) 0.0 Immature Gran # (Auto) 0.04 H Absolute Nucleated RBC 0.00 Immature Gran % 0 Nucleated RBC % 0 Sodium 138 Potassium 3.7 D Chloride 104 Carbon Dioxide 23.6 Anion Gap 10 BUN 18 Creatinine 1.1 Estim Creat Clear Calc 48.6 L eGFR > 60 BUN/Creatinine Ratio [address] Glu mg/dL 108 Hemoglobin A1c 5.4 Calculated Osmolality 276 Calcium 9.4 Corrected Calcium 9.4 Phosphorus 2.0 L Magnesium 2.0 Total Bilirubin 1.5 H D AST 20 ALT 11 Alkaline Phosphatase 90 Total Protein 8.1 Albumin 4.5 Globulin 3.6 H Albumin/Globulin Ratio 1.3 Triglycerides 63 Cholesterol 195 LDL Cholesterol, Calc 127 HDL Cholesterol 55 Cholesterol/HDL Ratio 3.5 L TSH 0.78 Quality Measures Quality Measures none Advance care planning discussed with:: patient Assessment & Plan Assessment Current Active Medications: Generic Name Dose Route Start Last Admin Trade Name Freq PRN Reason Stop Dose Admin Acetaminophen 650 mg 04/17/24 01:26 Acetaminophen 325 Mg Tablet PO 05/17/24 01:05 Q6H PRN Fever >100.3 or pain 1-3 Hydrocodone Bitart/Acetaminophen 1 tab 04/18/24 08:12 04/18/24 09:19 Hydrocodone/Apap 5/325 Tablet PO 04/23/24 08:11 1 tab Q4HR PRN Administration PAIN SCALE 4-6 (Moderate Heparin Sodium (Porcine) 5,000 unit 04/18/24 09:00 04/18/24 09:18 Heparin Sod Inj 5000 Unit/Ml Vial SC 05/02/24 08:59 5,000 unit BID KALLI Administration Morphine Sulfate 2 mg 04/17/24 01:06 Morphine Sulf Inj 10 Mg/Ml Vial IVP 04/22/24 01:05 Q4H PRN PAIN SCALE 7-10 (Severe Ondansetron HCl 4 mg 04/18/24 08:12 Ondansetron Inj 2 Mg/Ml Inj 2 Ml IV 05/18/24 08:11 Q6H PRN NAUSEA OR VOMITING Protocol Pantoprazole Sodium 40 mg 04/18/24 09:00 04/18/24 09:19 Pantoprazole 40 Mg Tablet PO 05/18/24 08:59 40 mg QDAY KALLI Administration Polyethylene Glycol 17 gm 04/18/24 09:00 04/18/24 09:18 Polyethylene Glycol 17 Gm Packet PO 05/18/24 08:59 17 gm QDAY KALLI Administration Sennosides 1 tab 04/18/24 08:12 Senna Tablet PO 05/18/24 08:11 QDAY PRN constipation Protocol Plan Assessment Harvey is an 78 y/o male with PMHx past medical history of essential hypertension and (dementia?) who is brought in [facility] from [facility] who is admitted for L femoral neck hip fracture that will require surgical intervention. #L femoral neck hip fracture Patient will require cardiac clearance for this surgery Upon reviewing information that we have been using revised cardiac index patient has 0 points calculated with the risk of major cardiac event 3.9% Unsure if patient is on any blood thinners, hemoglobin stable ~14 EKG showed low voltage in precordial leads, NSR, rate 82, no ST changes A1c 5.4, TSH 0.78, and Lipid panel includes total cholesterol 195, LDL 127 Surgery to be planned for Saturday, coagulation panel prior to Saturday and hold any A/C Bedside echo shows EF 55-60%, normal LV, some aortic valve calcifcation. Cardiac clearance approved Plan: ?Orthopedic surgery, Dr. Rice, on consult appreciate recs #History of hypertension Unsure if patient is on blood pressure medicines at home none reviewed upon med rec Plan: ? Wait upon med rec #?KATIE on CKD, improving Do not have baseline on patient, patient came with a creatinine of 1.4, currently at 1.3 Cr 1.1 today, fluids discontinued Plan: ?Trend with CMP Patient seen and care discussed with my attending physician, Dr. Flor Cruz, PGY-1
[2024-04-19] VITALS (8 sets, daily range): BP systolic 118–167; BP diastolic 80–97; PULSE 72–113; RESP 16–95; TEMP 36.2–36.4; O2SAT 91–95
[2024-04-19 06:10] LABS: Basophils % (Auto) 0 % (0-2.5); Eosinophils # (Auto) 0.1 Thou/mm3 (0.0-0.5); Eosinophils % (Auto) 1 % (0-10); Hematocrit 48.2 % (41.0-53.0); Hemoglobin 15.9 g/dL (13.5-16.0); Immature Granulocytes % (Auto) 0 % (0-0); Immature Granulocytes Auto 0.03 Thou/mm3 (0.00-0.00); Lymphocytes # (Auto) 1.5 Thou/mm3 (1.0-4.8); Lymphocytes % (Auto) 15 % (10-50); Mean Corpuscular Hemoglobin 29.6 pg (25.0-35.0); Mean Corpuscular Volume 90 fL (80-100); Monocytes # (Auto) 1.1 Thou/mm3 (0.0-0.8); Monocytes % (Auto) 11 % (0-12); Neutrophils # (Auto) 7.4 Thou/mm3 (1.8-7.7); Neutrophils % (Auto) 73 % (37-80); Nucleated Red Blood Cell % 0 /100 WBC (0); Platelet Count 290 Thou/mm3 (140-440); RDW Standard Deviation 46.6 fL (35.1-43.9); Red Blood Count 5.37 Miln/mm3 (4.50-5.90); White Blood Count 10.1 Thou/mm3 (3.8-10.6)
[2024-04-19 06:48] LABS: Alanine Aminotransferase 10 U/L (10-49); Albumin, Serum 4.4 gm/dL (3.4-4.8); Albumin/Globulin Ratio 1.2 (1.2-2.2); Alkaline Phosphatase 86 U/L (46-116); Anion Gap 11 (7-16); Aspartate Amino Transferase 17 U/L (0-34); BUN/Creatinine Ratio 18 Ratio (12-20); Bilirubin,Total 1.2 mg/dL (0.3-1.2); Blood Urea Nitrogen 23 mg/dL (9-23); Calcium 9.5 mg/dL (8.3-10.6); Calcium (Corrected) 9.5 mg/dL (8.5-10.1); Carbon Dioxide 25.9 mMol/L (20.0-31.0); Chloride 102 mMol/L (98-107); Creatinine (Component) 1.3 mg/dL (0.6-1.3); Estimated Creatinine Clearance 41.2 mL/min (>60); Globulin 3.8 gm/dL (2.3-3.5); Glucose 88 mg/dL (74-106); Magnesium 2.2 mg/dL (1.6-2.6); Osmolality,Calculated 280 (275-295); Phosphorous 2.6 mg/dL (2.4-5.1); Potassium 3.8 mMol/L (3.4-5.1); Sodium 139 mMol/L (136-145); Total Protein 8.2 gm/dL (5.7-8.2); eGFR 56 See Note
[2024-04-19] MEDS: PANTOPRAZOLE 40 MG TABLET PO (08:45)
[2024-04-19] MEDS: POLYETHYLENE GLYCOL 17 GM PACKET PO (08:45)
[2024-04-19] MEDS: HEPARIN SOD INJ 5000 UNIT/ML VIAL SC (08:45)
[2024-04-19] MEDS: RINGERS LACTATED 1000 ML 1,000 ML 999 ML IV (10:51)
--- NOTE | 2024-04-19 12:39 | ESPR_ITS ---
Documentation for date of: 04/19/24 Subjective Subjective Interval history: 04/19/2024: Patient examined at bedside today. No overnight telemetry events. Patient reports he is doing well, he is much more cooperative and awake today. Still refusing some commands but was able to listen to heart and lungs. Bedside echo yesterday showed good pumping of the heart and normal LV. Surgery scheduled for tomorrow. Patient had elevated blood pressure in the 140s, likely related to uncontrolled pain, will do scheduled Tylenol to manage pain and reduce patient's blood pressure. Nothing consistent Exam Vital Signs Temp Pulse Resp BP Pulse Ox O2 Del Method 97.2 F 104 H 18 146/96 H 93 L Room Air 04/19/24 08:00 04/19/24 10:15 04/19/24 10:15 04/19/24 08:00 04/19/24 08:00 04/19/24 08:00 Narrative Exam General: AAOx1, NAD, khmer speaking male HEENT: Moist mucous membranes, conjunctiva clear, EOMI, PERRLA, Cardiovascular: S1, S2, radial pulses +2 bilat, RRR Pulmonary: CTAB bilat no cough, no wheezing GI: No tenderness to light or deep palpitation, no guarding, rigidity, rebound tenderness or distension Extremities: No presence of trace or pitting edema in lower extremities bilaterally, dorsalis pedis pulses +2 bilaterally MSK: L hip and proximal IT band taut and some bruising however no skin discoloration, bandage over L femoral hip near Neuro: AAOx1 Objective Labs 04/19/24 05:18 04/19/24 05:18 Labs: Laboratory Results - last 24 hr 04/19/24 05:18 WBC 10.1 RBC 5.37 Hgb 15.9 Hct 48.2 MCV 90 MCH 29.6 MCHC 33.0 RDW Std Deviation 46.6 H Plt Count 290 Neut % (Auto) 73 Lymph % (Auto) 15 [place] % (Auto) 11 Eos % (Auto) 1 Baso % (Auto) 0 Neut # (Auto) 7.4 Lymph # (Auto) 1.5 [place] # (Auto) 1.1 H Eos # (Auto) 0.1 Baso # (Auto) 0.0 Immature Gran # (Auto) 0.03 H Absolute Nucleated RBC 0.00 Immature Gran % 0 Nucleated RBC % 0 Sodium 139 Potassium 3.8 Chloride 102 Carbon Dioxide 25.9 Anion Gap 11 BUN 23 Creatinine 1.3 Estim Creat Clear Calc 41.2 L eGFR 56 L BUN/Creatinine Ratio 18 Glucose 88 Calculated Osmolality 280 Calcium 9.5 Corrected Calcium 9.5 Phosphorus 2.6 Magnesium 2.2 Total Bilirubin 1.2 AST 17 ALT 10 Alkaline Phosphatase 86 Total Protein 8.2 Albumin 4.4 Globulin 3.8 H Albumin/Globulin Ratio 1.2 Quality Measures Quality Measures none Advance care planning discussed with:: patient Assessment & Plan Assessment Current Active Medications: Generic Name Dose Route Start Last Admin Trade Name Freq PRN Reason Stop Dose Admin Acetaminophen 650 mg 04/17/24 01:26 Acetaminophen 325 Mg Tablet PO 05/17/24 01:05 Q6H PRN Fever >100.3 or pain 1-3 Hydrocodone Bitart/Acetaminophen 1 tab 04/18/24 08:12 04/18/24 09:19 Hydrocodone/Apap 5/325 Tablet PO 04/23/24 08:11 1 tab Q4HR PRN Administration PAIN SCALE 4-6 (Moderate Heparin Sodium (Porcine) 5,000 unit 04/18/24 09:00 04/19/24 08:45 Heparin Sod Inj 5000 Unit/Ml Vial SC 05/02/24 08:59 5,000 unit BID KALLI Administration Melatonin 3 mg 04/18/24 21:00 Melatonin 3 Mg Tablet PO 05/18/24 20:59 HS PRN INSOMNIA Morphine Sulfate 2 mg 04/17/24 01:06 Morphine Sulf Inj 10 Mg/Ml Vial IVP 04/22/24 01:05 Q4H PRN PAIN SCALE 7-10 (Severe Ondansetron HCl 4 mg 04/18/24 08:12 Ondansetron Inj 2 Mg/Ml Inj 2 Ml IV 05/18/24 08:11 Q6H PRN NAUSEA OR VOMITING Protocol Pantoprazole Sodium 40 mg 04/18/24 09:00 04/19/24 08:45 Pantoprazole 40 Mg Tablet PO 05/18/24 08:59 40 mg QDAY KALLI Administration Polyethylene Glycol 17 gm 04/18/24 09:00 04/19/24 08:45 Polyethylene Glycol 17 Gm Packet PO 05/18/24 08:59 17 gm QDAY KALLI Administration Sennosides 1 tab 04/18/24 08:12 Senna Tablet PO 05/18/24 08:11 QDAY PRN constipation Protocol Plan Assessment Harvey is an 78 y/o male with PMHx past medical history of essential hypertension and (dementia?) who is [facility] who is admitted for L femoral neck hip fracture that will require surgical intervention. #L femoral neck hip fracture Patient will require cardiac clearance for this surgery Upon reviewing information that we have been using revised cardiac index patient has 0 points calculated with the risk of major cardiac event 3.9% Unsure if patient is on any blood thinners, hemoglobin stable ~14 EKG showed low voltage in precordial leads, NSR, rate 82, no ST changes A1c 5.4, TSH 0.78, and Lipid panel includes total cholesterol 195, LDL 127 Surgery to be planned for Saturday, coagulation panel prior to Saturday and hold any A/C Bedside echo shows EF 55-60%, normal LV, some aortic valve calcifcation. Cardiac clearance approved Plan: ? Orthopedic surgery, Dr. Rice, on consult appreciate recs ? Tylenol 60 mg every 12 hours scheduled ? [place] 5 every 4 as needed ? Do not exceed over 3 g of Tylenol within 24 hours. ?Coagulation panel for morning draw ?Holding heparin subq ?N.p.o. at midnight ?Avoid #History of hypertension Unsure if patient is on blood pressure medicines at home none reviewed upon med rec Plan: ? Will not resume blood pressure medicine at this time, will control patient's pain at this time. 140 systolic #?KATIE on CKD, improving Do not have baseline on patient, patient came with a creatinine of 1.4, currently at 1.3 Cr 1.3 Plan: ?Trend with CMP #History of dementia No medicines seen upon med rec Plan: ? Avoid patient Patient seen and care discussed with my attending physician, Dr. Flor Cruz, PGY-1 Attending Provider Attestation/Addendum I reviewed the resident Dr. Willson consultation progress note and agree with the resident findings and plan in the note above and have also edited the documentation to reflect my findings and plan. Brennan Ray M.D. Interventional Cardiology
--- NOTE | 2024-04-19 13:37 | PD.RESPRO ---
Documentation for date of: 04/19/24 Subjective Subjective Interval history: No overnight events. Patient seen and examined resting comfortably in bed. No specific complaints, minimal L hip tenderness. Denies chest pain, SOB, fevers. Tolerating diet well. Bolus given for KATIE. Plan for surgery tomorrow. Exam Vital Signs Temp Pulse Resp BP Pulse Ox O2 Del Method 97.5 F 84 16 167/97 H 95 Room Air 04/19/24 12:00 04/19/24 12:00 04/19/24 12:00 04/19/24 12:00 04/19/24 12:00 04/19/24 12:00 Narrative Exam General Appearance: Alert & Oriented X0, well-nourished male who is lying in bed in mild distress but NOT grimacing from pain. Palpated left leg, no acute distress noted. HEENT: Skull symmetrical and atraumatic. Conjunctivae pale pink and moist. Pupils equal, round, reactive to light and accommodation (PERRL). External ear without lesion or discharge. Straight, nares patient, mucosa pink, no discharge. Cardio: Normal Rate and Rhythm with S1 and S2 heart sounds. No murmurs or extra heart sounds auscultated. No bruits on carotid auscultation. No peripheral edema or cyanosis. Lungs: Symmetric with good expansion. Chest and back non-tender. Breath sounds vesicular without crackles, wheezing or rhonchi Abdomen: Non-tender, Non-distended, Normal Reactive Bowel Sounds MSK: Minimal tenderness to L hip. Legs equal length, pulses and sensation intact. Neuro: YES Alert, NOT cooperative, NO oriented to NO person, NO place, and NO time. Aphasic. CN grossly intact. Difficult to evaluate as patient does not follow commands and unable to access motor, 2/5 at least patient does withdrawal to pain. Sensation intact. Objective Labs 04/19/24 05:18 04/19/24 05:18 Labs: Laboratory Results - last 24 hr 04/19/24 05:18 WBC 10.1 RBC 5.37 Hgb 15.9 Hct 48.2 MCV 90 MCH 29.6 MCHC 33.0 RDW Std Deviation 46.6 H Plt Count 290 Neut % (Auto) 73 Lymph % (Auto) 15 [place] % (Auto) 11 Eos % (Auto) 1 Baso % (Auto) 0 Neut # (Auto) 7.4 Lymph # (Auto) 1.5 [place] # (Auto) 1.1 H Eos # (Auto) 0.1 Baso # (Auto) 0.0 Immature Gran # (Auto) 0.03 H Absolute Nucleated RBC 0.00 Immature Gran % 0 Nucleated RBC % 0 Sodium 139 Potassium 3.8 Chloride 102 Carbon Dioxide 25.9 Anion Gap 11 BUN 23 Creatinine 1.3 Estim Creat Clear Calc 41.2 L eGFR 56 L BUN/Creatinine Ratio 18 Glucose 88 Calculated Osmolality 280 Calcium 9.5 Corrected Calcium 9.5 Phosphorus 2.6 Magnesium 2.2 Total Bilirubin 1.2 AST 17 ALT 10 Alkaline Phosphatase 86 Total Protein 8.2 Albumin 4.4 Globulin 3.8 H Albumin/Globulin Ratio 1.2 Quality Measures Quality Measures VTE prophylaxis Advance care planning discussed with:: patient Assessment & Plan Assessment Current Active Medications: Generic Name Dose Route Start Last Admin Trade Name Freq PRN Reason Stop Dose Admin Acetaminophen 650 mg 04/19/24 13:15 Acetaminophen 325 Mg Tablet PO 05/19/24 13:14 Q8H KALLI Hydrocodone Bitart/Acetaminophen 1 tab 04/18/24 08:12 04/18/24 09:19 Hydrocodone/Apap 5/325 Tablet PO 04/23/24 08:11 1 tab Q4HR PRN Administration PAIN SCALE 4-6 (Moderate Heparin Sodium (Porcine) 5,000 unit 04/18/24 09:00 04/19/24 08:45 Heparin Sod Inj 5000 Unit/Ml Vial SC 05/02/24 08:59 5,000 unit BID KALLI Administration Melatonin 3 mg 04/18/24 21:00 Melatonin 3 Mg Tablet PO 05/18/24 20:59 HS PRN INSOMNIA Morphine Sulfate 2 mg 04/17/24 01:06 Morphine Sulf Inj 10 Mg/Ml Vial IVP 04/22/24 01:05 Q4H PRN PAIN SCALE 7-10 (Severe Ondansetron HCl 4 mg 04/18/24 08:12 Ondansetron Inj 2 Mg/Ml Inj 2 Ml IV 05/18/24 08:11 Q6H PRN NAUSEA OR VOMITING Protocol Pantoprazole Sodium 40 mg 04/18/24 09:00 04/19/24 08:45 Pantoprazole 40 Mg Tablet PO 05/18/24 08:59 40 mg QDAY KALLI Administration Polyethylene Glycol 17 gm 04/18/24 09:00 04/19/24 08:45 Polyethylene Glycol 17 Gm Packet PO 05/18/24 08:59 17 gm QDAY KALLI Administration Sennosides 1 tab 04/18/24 08:12 Senna Tablet PO 05/18/24 08:11 QDAY PRN constipation Protocol Plan Patient is a 78-year-old male with a limited past medical history with dementia (only melatonin was started), hypertension, generalized weakness, and dysphagia who was admitted secondary to femur neck fracture. # Ground-level fall # Acute left femoral neck fracture Patient had a ground-level fall at [facility]. On exam patient's left lower extremity shortened and externally rotated. On hip x-ray, left femoral neck fracture. Plan: -Regular Diet, no surgery planned until Saturday morning ? Acetaminophen 650 Mg p.o. every 6 hourly as needed for fever, [place] 5, Morphine 2 Mg IV Q4 hourly ? Cardiology Cleared for surgery. -bowel regimen added. -Zofran ? Orthopedics, Dr. Rice consulted and closely following the case. Appreciate recommendations # Acute Kidney Injury, likely prerenal Likely pre-renal secondary to poor oral intake Gave 1L bolus LR Plan: ? Avoid nephrotoxic agent ? Renally dose medication # Essential hypertension Patient does not appear to be on any home medication. Blood pressure within range during hospital course. Plan: ? Monitor blood pressures while in hospital # Dementia At baseline patient is oriented to self only. Plan: Melotonin PRN Health maintenance: Disposition: Awaiting Ortho, scheduled for surgery on Saturday04/20/2023. NPO on 04/20/2024 at 00:01. Diet: regular diet Lines: pIVs GI Prophylaxis: None Thrombo Prophylaxis: Heparin subq Code status: FULL CODE Plan of care discussed with senior resident Dr. Forde PGY-[address] Maria. Randy Castle MD PGY-1 Senior Resident Attestation: I discussed with and supervised the business intern physician involved in the care of this patient. I personally saw and examined the patient and discussed the assessment and plan with the entire medicine team, including my attending. I agree with the assessment and plan as documented above. Patient seen and examined. Patient's mentation is much better today. Vitals and labs were reviewed. We will hold heparin today. Pending surgery tomorrow at 04/20/2024. - Patient's care was discussed with my attending physician. Weslye Forde MD Internal Medicine PGY-3 Attending Provider Attestation/Addendum I have discussed and was present for the essential components of the history, physical examination, diagnosis, and treatment plan with the resident. I agree with the patient's care as documented by the resident and amended herein by me. Arnav Maria DO. Patient seen and evaluated this AM. Significantly improved mentation today, labs largely unremarkable with exception of creatinine which demonstrated slight uptrend to 1.3. Will give fluid bolus. Orthopedic surgery will hopefully take place tomorrow on 04/20, patient states his pain is well-controlled. Although this document has been carefully reviewed, there may still be some phonetic and other typographical errors. These errors are purely grammatical due to imperfections in the software program and should not be construed in any way to compromise the substance of the patient's medical care during this visit.
[2024-04-20] VITALS (12 sets, daily range): BP systolic 102–154; BP diastolic 67–86; PULSE 66–97; RESP 16–96; TEMP 36.1–36.6; O2SAT 95–100; BMI 22.1
[2024-04-20 06:15] LABS: Basophils # (Auto) 0.1 Thou/mm3 (0.0-0.2); Basophils % (Auto) 1 % (0-2.5); Eosinophils # (Auto) 0.2 Thou/mm3 (0.0-0.5); Eosinophils % (Auto) 2 % (0-10); Hematocrit 43.3 % (41.0-53.0); Hemoglobin 14.4 g/dL (13.5-16.0); Immature Granulocytes % (Auto) 1 % (0-0); Immature Granulocytes Auto 0.05 Thou/mm3 (0.00-0.00); Lymphocytes # (Auto) 1.6 Thou/mm3 (1.0-4.8); Lymphocytes % (Auto) 17 % (10-50); Mean Corpuscular HGB Conc 33.3 g/dl (31.0-37.0); Mean Corpuscular Hemoglobin 29.8 pg (25.0-35.0); Mean Corpuscular Volume 90 fL (80-100); Monocytes # (Auto) 1.1 Thou/mm3 (0.0-0.8); Monocytes % (Auto) 12 % (0-12); Neutrophils # (Auto) 6.6 Thou/mm3 (1.8-7.7); Neutrophils % (Auto) 69 % (37-80); Nucleated Red Blood Cell % 0 /100 WBC (0); Platelet Count 274 Thou/mm3 (140-440); RDW Standard Deviation 45.5 fL (35.1-43.9); Red Blood Count 4.84 Miln/mm3 (4.50-5.90); White Blood Count 9.5 Thou/mm3 (3.8-10.6)
[2024-04-20 06:24] LABS: INR 1.1 (0.9-1.3); Partial Thromboplastin Time 30.8 Seconds (22.0-36.0); Prothrombin Time 11.9 Seconds (9.0-12.2)
[2024-04-20 06:26] LABS: Alanine Aminotransferase 9 U/L (10-49); Albumin, Serum 3.9 gm/dL (3.4-4.8); Albumin/Globulin Ratio 1.1 (1.2-2.2); Alkaline Phosphatase 80 U/L (46-116); Anion Gap 10 (7-16); Aspartate Amino Transferase 21 U/L (0-34); BUN/Creatinine Ratio 19 Ratio (12-20); Bilirubin,Total 1.2 mg/dL (0.3-1.2); Blood Urea Nitrogen 21 mg/dL (9-23); Calcium 9.1 mg/dL (8.3-10.6); Calcium (Corrected) 9.2 mg/dL (8.5-10.1); Carbon Dioxide 25.4 mMol/L (20.0-31.0); Chloride 104 mMol/L (98-107); Creatinine (Component) 1.1 mg/dL (0.6-1.3); Estimated Creatinine Clearance 48.6 mL/min (>60); Globulin 3.6 gm/dL (2.3-3.5); Glucose 85 mg/dL (74-106); Magnesium 2.2 mg/dL (1.6-2.6); Osmolality,Calculated 279 (275-295); Phosphorous 2.6 mg/dL (2.4-5.1); Potassium 3.9 mMol/L (3.4-5.1); Sodium 139 mMol/L (136-145); Total Protein 7.5 gm/dL (5.7-8.2); eGFR > 60 See Note
--- NOTE | 2024-04-20 08:30 | PD.CARDCATH ---
Cardiac Cath Procedure Procedure Name Date of procedure: 04/20/2024 milling/polishing operator: Brennan Ray MD Procedures performed: 1. Successful PCI performed to the mid OM1 with 2.75 x 16 mm Synergy HANNY stent 2. Left heart cardiac catheterization including right and left Coronary angiograms and left ventriculogram 3. Ultrasound-guided access of the right radial artery as well as the right femoral artery 4. Moderate conscious sedation for 45 minutes Procedure Narrative HISTORY AND INDICATIONS: Patient was explained the risk benefits and alternatives of performing a left heart cardiac catheterization including the risk of bleeding, heart attack, stroke and in detail and the agreeable for the procedure. Consent signed, placed in the chart and H&P updated. DESCRIPTION OF PROCEDURE: The patient was brought to the cardiac catheterization lab and all asceptic precautions were followed. Patient was given 1 Mg of Versed and 50 mcg of fentanyl for moderate conscious sedation. 2 mL of lidocaine was given in the right wrist. The right radial artery was accessed via the ultrasound guidance as well as micropuncture technique. A 6 [place] glide sheath was introduced. We then used a 5 [place] TIG 4 catheter to perform the left and right coronary angiograms as well as a left ventriculogram which showed the following findings. 1. Left ventricular ejection fraction was normal at 60 to 65% without any regional wall motion abnormalities. LVEDP was normal at 9 mmHg. There was no significant transvalvular aortic gradient. 2. Right dominant circulation 3. Left main artery is a large-caliber vessel without any significant stenosis. 4. LAD is a large sized artery with a medium size diagonal and does not show any significant disease. 5. LCx is a large sized artery with medium OM1 and small OM2 without any significant disease. 6. RCA is a large artery with nedium RPDA and RPL without any significant disease. A radial band was used to achieve the hemostasis of the right radial artery access. Patient will be monitored in the cardiac [place] for the next 2 to 3 hours and will be discharged home later today if hemodynamically stable. Patient recommended to follow-up with me in the office within 7 days. Complications: None Specimens: None Blood loss: Estimated 5-10 ml Summary/findings: 1. Abnornal Stress test: LHC showed normal coronaries without any angiographically significant obstruction. 2. LVEF was normal at 60-65% and normal LVEDP of 10 mmHg. No transvalvular aortic gradient. Recommendations: 1. Recommended aggressive risk factor modification and aggressive medical treatment 2. Recommended no lifting more than 5 pounds for 7 days and follow up in my office in 7 days. Brennan Ray MD Interventional Cardiology. 1. LVEF is normal at 65 to 70%. LVEDP was low at 6 mmHg. There was no significant transvalvular right gradient. 2. Left main artery is a large sized artery with mild 20% disease 3. LAD is a large sized artery with severe 90% stenosis in the mid LAD with a mild disease in the rest of the LAD and 2 very small diagonals. 4. LCx is a large sized artery with medium to large OM1 with severe 99% stenosis in the mid OM1 and a moderate 50% stenosis in the proximal OM1. Distal LCx is small with no significant disease. 5. RCA is a large sized artery with 50% stenosis focal in the proximal and mid portion. RPDA is a medium sized artery with no significant disease. RPDA is a small artery with moderate 60 to 70% stenosis in the proximal and midportion Intervention: Patient presented with NSTEMI with elevated troponins as well as chest pain and decision was made to perform PCI for the severe 90% stenosis in the mid OM1. Patient is given Brilinta 180 mg x 1. Additional 4005 mg of heparin given and ACT was greater than 250 during the entire procedure. VL 3.0 guide was used to engage the left main artery. A run-through guidewire is was used to successfully cross the lesion in the mid OM1. We then used a 2.5 x 12 mm semicompliant balloon and performed predilation twice at 6 and 8 erik. A Synergy 2.75 x 16 mm HANNY stent was placed in the mid OM1 and was inflated at 11 erik for 30 seconds and 12 erik for another 20 seconds and deployed successfully. A 2.75 x 12 mm NC balloon was then used to perform post dilation at 14 erik in the proximal to midportion and then 12 erik in the mid to distal portion. Excellent results with JOESPH-3 flow was achieved with no complications. Final images were taken in the all decrement was removed. Preintervention: Mid OM1-99% stenosis with JOESPH II flow Postintervention: Mid OM1 with 0% or no residual stenosis with JOESPH-3 flow Acute coronary syndrome-NSTEMI Severe multivessel CAD with 99% stenosis of proximal to mid OM1 with JOESPH II flow, 90% stenosis of the mid LAD, 50% stenosis of the mid RCA as well as 70 to 80% stenosis of the small RPDA. Successful PCI performed to the OM1 with a 2.75 x 60 mm Synergy HANNY stent reducing the initial 99% stenosis to 0% and the JOESPH flow improved from JOESPH II to JOESPH-3. No complications. Plan to do staged PCI of the LAD tomorrow 04/21/2024 or 04/22/2024. Recommend aspirin 81 mg once daily, Brilinta 90 mg twice daily, high intensity statin Lipitor 80 mg once daily, beta-miriam if blood pressure is permissible. Complete report to follow.
--- NOTE | 2024-04-20 09:15 | ESPR_ITS ---
Documentation for date of: 04/20/24 Subjective Subjective Interval history: 04/19/2024: Patient examined at bedside today. No overnight telemetry events. Patient reports he is doing well, he is much more cooperative and awake today. Still refusing some commands but was able to listen to heart and lungs. Bedside echo yesterday showed good pumping of the heart and normal LV. Surgery scheduled for tomorrow. Patient had elevated blood pressure in the 140s, likely related to uncontrolled pain, will do scheduled Tylenol to manage pain and reduce patient's blood pressure. 04/20/2024: Patient examined at bedside today. No overnight events on telemetry. Patient reports he is doing well and does not want to speak much. He is agreeable to go for procedure today coagulation panel reviewed today and is normal. Has not been on heparin subcu because of procedure. Procedure scheduled for today by Dr. Rice. No other complaints at this time Exam Vital Signs Temp Pulse Resp BP Pulse Ox O2 Del Method 97.8 F 78 16 134/81 H 95 Room Air 04/20/24 08:00 04/20/24 08:00 04/20/24 08:00 04/20/24 08:00 04/20/24 08:00 04/20/24 08:00 Narrative Exam General: AAOx1, NAD, hebrew speaking male HEENT: Moist mucous membranes, conjunctiva clear, EOMI, PERRLA, Cardiovascular: S1, S2, radial pulses +2 bilat, RRR Pulmonary: CTAB bilat no cough, no wheezing GI: No tenderness to light or deep palpitation, no guarding, rigidity, rebound tenderness or distension Extremities: No presence of trace or pitting edema in lower extremities bilaterally, dorsalis pedis pulses +2 bilaterally MSK: L hip and proximal IT band taut and some bruising however no skin discoloration, bandage over L femoral hip near Neuro: AAOx1 Objective Labs 04/20/24 04:52 04/20/24 04:52 Labs: Laboratory Results - last 24 hr 04/20/24 04:52 WBC 9.5 RBC 4.84 Hgb 14.4 Hct 43.3 MCV 90 MCH 29.8 MCHC 33.3 RDW Std Deviation 45.5 H Plt Count 274 Neut % (Auto) 69 Lymph % (Auto) 17 [place] % (Auto) 12 Eos % (Auto) 2 Baso % (Auto) 1 Neut # (Auto) 6.6 Lymph # (Auto) 1.6 [place] # (Auto) 1.1 H Eos # (Auto) 0.2 Baso # (Auto) 0.1 Immature Gran # (Auto) 0.05 H Absolute Nucleated RBC 0.00 Immature Gran % 1 H Nucleated RBC % 0 PT 11.9 INR 1.1 APTT 30.8 Sodium 139 Potassium 3.9 Chloride 104 Carbon Dioxide 25.4 Anion Gap 10 BUN 21 Creatinine 1.1 Estim Creat Clear Calc 48.6 L eGFR > 60 BUN/Creatinine Ratio 19 Glucose 85 Calculated Osmolality 279 Calcium 9.1 Corrected Calcium 9.2 Phosphorus 2.6 Magnesium 2.2 Total Bilirubin 1.2 AST 21 ALT 9 L Alkaline Phosphatase 80 Total Protein 7.5 Albumin 3.9 D Globulin 3.6 H Albumin/Globulin Ratio 1.1 L Quality Measures Quality Measures VTE prophylaxis Advance care planning discussed with:: patient Assessment & Plan Assessment Current Active Medications: Generic Name Dose Route Start Last Admin Trade Name Freq PRN Reason Stop Dose Admin Acetaminophen 650 mg 04/19/24 13:15 Acetaminophen 325 Mg Tablet PO 05/19/24 13:14 Q8H PRN PAIN OR FEVER > 100.3 Hydrocodone Bitart/Acetaminophen 1 tab 04/18/24 08:12 04/18/24 09:19 Hydrocodone/Apap 5/325 Tablet PO 04/23/24 08:11 1 tab Q4HR PRN Administration PAIN SCALE 4-6 (Moderate Melatonin 3 mg 04/18/24 21:00 Melatonin 3 Mg Tablet PO 05/18/24 20:59 HS PRN INSOMNIA Morphine Sulfate 2 mg 04/17/24 01:06 Morphine Sulf Inj 10 Mg/Ml Vial IVP 04/22/24 01:05 Q4H PRN PAIN SCALE 7-10 (Severe Ondansetron HCl 4 mg 04/18/24 08:12 Ondansetron Inj 2 Mg/Ml Inj 2 Ml IV 05/18/24 08:11 Q6H PRN NAUSEA OR VOMITING Protocol Pantoprazole Sodium 40 mg 04/18/24 09:00 04/19/24 08:45 Pantoprazole 40 Mg Tablet PO 05/18/24 08:59 40 mg QDAY KALLI Administration Polyethylene Glycol 17 gm 04/18/24 09:00 04/19/24 08:45 Polyethylene Glycol 17 Gm Packet PO 05/18/24 08:59 17 gm QDAY KALLI Administration Sennosides 1 tab 04/18/24 08:12 Senna Tablet PO 05/18/24 08:11 QDAY PRN constipation Protocol Plan Assessment Harvey is an 78 y/o male with PMHx past medical history of essential hypertension and (dementia?) who is brought in BIBA from [facility] who is admitted for L femoral neck hip fracture that will require surgical intervention. #L femoral neck hip fracture Patient will require cardiac clearance for this surgery Upon reviewing information that we have been using revised cardiac index patient has 0 points calculated with the risk of major cardiac event 3.9% Unsure if patient is on any blood thinners, hemoglobin stable ~14 EKG showed low voltage in precordial leads, NSR, rate 82, no ST changes A1c 5.4, TSH 0.78, and Lipid panel includes total cholesterol 195, LDL 127 Bedside echo shows EF 55-60%, normal LV, some aortic valve calcification. Cardiac clearance approved Coagulation panel normal today has not been given any heparin subcu. Surgery today Plan: ? Orthopedic surgery, Dr. Rice, on consult appreciate recs ? Tylenol 60 mg every 12 hours scheduled ? [place] 5 every 4 as needed ? Do not exceed over 3 g of Tylenol within 24 hours. ?N.p.o. at midnight ?Avoid sundowning #History of hypertension Unsure if patient is on blood pressure medicines at home none reviewed upon med rec Plan: ? Will not resume blood pressure medicine at this time, will control patient's pain at this time. 140 systolic #?KATIE on CKD, improving Do not have baseline on patient, patient came with a creatinine of 1.4, currently at 1.3 Cr 1.3 Plan: ?Trend with CMP #History of dementia No medicines seen upon med rec Plan: ? Avoid sundowning patient Patient seen and care discussed with my attending physician, Dr. Flor Cruz, PGY-1 Attending Provider Attestation/Addendum I have personally seen and examined the patient separately on the above date of service and discussed the plan of care with the resident. I reviewed the resident Dr. Willson consultation progress note and agree with the resident findings and plan in the note above and have also edited the documentation to reflect my findings and plan. Brennan Ray M.D. Interventional Cardiology
--- NOTE | 2024-04-20 09:39 | ESPR_ITS ---
<Statement entered by Alfonzo Lugo MD - 04/20/24 16:51> Patient was seen and examined at the bedside. Patient is currently in pain due to her hip fracture and will be going for surgery today performed by orthopedics, Dr. Rice. Will continue with pain management and likely follow-up on postop care once surgery is performed. Labs were unremarkable. All labs and orders were reviewed. I saw and examined the patient, and I agree with current management stated by Dr Zeyad MD,PGY1. Plan of care was discussed with the attending physician and resident physician. Disclaimer: Despite multiple revisions, due to the dictation software being used, the document bellow may not be free of grammatical errors including phonetic/typographic errors. However, this does not deter from our commitment to providing health care in the patient's best interest in mind. Dr. Parish MD, PGY 2 Documentation for date of: 04/20/24 Subjective Subjective Interval history: Patient is a 78-year-old male with a limited past medical history with dementia (only melatonin was started), hypertension, generalized weakness, and dysphagia who was admitted secondary to femur neck fracture. No overnight events reported. Patient examined at bedside. Patient stated only mild pain. Encouraged to request pain medicaiton. alert and orientated X2. Pat[facility] stated they are going to fix his leg. scheduled for surgery today, continue NPO. Exam Vital Signs Temp Pulse Resp BP Pulse Ox O2 Del Method 97.8 F 78 16 134/81 H 95 Room Air 04/20/24 08:00 04/20/24 08:00 04/20/24 08:00 04/20/24 08:00 04/20/24 08:00 04/20/24 08:00 Narrative Exam General Appearance: Alert & Oriented X2, well-nourished male who is lying in bed in no acute distress. left leg externally rotated. HEENT: Skull symmetrical and atraumatic. Conjunctivae pink and moist. Pupils equal, round, reactive to light and accommodation (PERRL). External ear without lesion or discharge. Straight, nares patient, mucosa pink, no discharge. No thyroid nodule appreciated. No cervical lymphadenopathy. Cardio: Normal Rate and Rhythm with S1 and S2 heart sounds. No murmurs or extra heart sounds auscultated. No bruits on carotid auscultation. No peripheral edema or cyanosis. Lungs: Symmetric with good expansion. Chest and back non-tender. Breath sounds vesicular without crackles, wheezing or rhonchi Abdomen: Non-tender, Non-distended, Normal Reactive Bowel Sounds Neuro: Alert, cooperative, YeS oriented to person, Yes place, andNO time. Speech clear. CN grossly intact. Upper motor strength 5/5 and Lower motor strength 5/5. Sensation intact. Objective Labs 04/20/24 04:52 04/20/24 04:52 Labs: Laboratory Results - last 24 hr 04/20/24 04:52 WBC 9.5 RBC 4.84 Hgb 14.4 Hct 43.3 MCV 90 MCH 29.8 MCHC 33.3 RDW Std Deviation 45.5 H Plt Count 274 Neut % (Auto) 69 Lymph % (Auto) 17 [place] % (Auto) 12 Eos % (Auto) 2 Baso % (Auto) 1 Neut # (Auto) 6.6 Lymph # (Auto) 1.6 [place] # (Auto) 1.1 H Eos # (Auto) 0.2 Baso # (Auto) 0.1 Immature Gran # (Auto) 0.05 H Absolute Nucleated RBC 0.00 Immature Gran % 1 H Nucleated RBC % 0 PT 11.9 INR 1.1 APTT 30.8 Sodium 139 Potassium 3.9 Chloride 104 Carbon Dioxide 25.4 Anion Gap 10 BUN 21 Creatinine 1.1 Estim Creat Clear Calc 48.6 L eGFR > 60 BUN/Creatinine Ratio 19 Glucose 85 Calculated Osmolality 279 Calcium 9.1 Corrected Calcium 9.2 Phosphorus 2.6 Magnesium 2.2 Total Bilirubin 1.2 AST 21 ALT 9 L Alkaline Phosphatase 80 Total Protein 7.5 Albumin 3.9 D Globulin 3.6 H Albumin/Globulin Ratio 1.1 L Quality Measures Quality Measures VTE prophylaxis Advance care planning discussed with:: patient Assessment & Plan Assessment Current Active Medications: Generic Name Dose Route Start Last Admin Trade Name Freq PRN Reason Stop Dose Admin Acetaminophen 650 mg 04/19/24 13:15 Acetaminophen 325 Mg Tablet PO 05/19/24 13:14 Q8H PRN PAIN OR FEVER > 100.3 Hydrocodone Bitart/Acetaminophen 1 tab 04/18/24 08:12 04/18/24 09:19 Hydrocodone/Apap 5/325 Tablet PO 04/23/24 08:11 1 tab Q4HR PRN Administration PAIN SCALE 4-6 (Moderate Melatonin 3 mg 04/18/24 21:00 Melatonin 3 Mg Tablet PO 05/18/24 20:59 HS PRN INSOMNIA Morphine Sulfate 2 mg 04/17/24 01:06 Morphine Sulf Inj 10 Mg/Ml Vial IVP 04/22/24 01:05 Q4H PRN PAIN SCALE 7-10 (Severe Ondansetron HCl 4 mg 04/18/24 08:12 Ondansetron Inj 2 Mg/Ml Inj 2 Ml IV 05/18/24 08:11 Q6H PRN NAUSEA OR VOMITING Protocol Pantoprazole Sodium 40 mg 04/18/24 09:00 04/19/24 08:45 Pantoprazole 40 Mg Tablet PO 05/18/24 08:59 40 mg QDAY KALLI Administration Polyethylene Glycol 17 gm 04/18/24 09:00 04/19/24 08:45 Polyethylene Glycol 17 Gm Packet PO 05/18/24 08:59 17 gm QDAY KALLI Administration Sennosides 1 tab 04/18/24 08:12 Senna Tablet PO 05/18/24 08:11 QDAY PRN constipation Protocol Plan Patient is a 78-year-old male with a limited past medical history with dementia (only melatonin was started), hypertension, generalized weakness, and dysphagia who was admitted secondary to femur neck fracture. # Ground-level fall # Acute left femoral neck fracture Patient [facility]. On exam patient's left lower extremity shortened and externally rotated. On hip x-ray, left femoral neck fracture. Plan: -Regular Diet, no surgery planned until Saturday morning ? Acetaminophen 650 Mg p.o. every 6 hourly as needed for fever, [place] 5, Morphine 2 Mg IV Q4 hourly -Consider Lidocaine Patch -bowel regimen added. -Zofran -Cardio consulted, appreciated recommendations. ? Orthopedics, Dr. Rice consulted and closely following the case. Appreciate recommendations # Acute Kidney Injury, likely prerenal Likely pre-renal secondary to poor oral intake Plan: -NS 1 bolus X 1 04/19/2024 ? Avoid nephrotoxic agent ? Renally dose medication # Essential hypertension Patient does not appear to be on any home medication. Blood pressure within range during hospital course. Plan: ? Monitor blood pressures while in hospital # Dementia At baseline patient is oriented to self only. Plan: Melotonin PRN Health Maintenance: Disp: Pt is currently admitted to floors for further management of femoral fracture, awaiting surgery FEN: restart normal diet after surgery DVT: restart subq heparin after surgery Code: Full code - The patient's plan was discussed with attending Dr. Maria and senior residents Dr. Parish Jeffers MD PGY1 Internal Medicine Attending Provider Attestation/Addendum I have discussed and was present for the essential components of the history, physical examination, diagnosis, and treatment plan with the resident. I agree with the patient's care as documented by the resident and amended herein by me. Arnav Maria DO.
--- NOTE | 2024-04-20 11:53 | XR_ITS ---
Examination: Left hip 2 views TECHNIQUE: AP left hip 2 views crosstable lateral Exam date and time: April 20, 2024 1352 hours INDICATIONS: Status post left hip hemiarthroplasty FINDINGS: Left hip hemiarthroplasty. Satisfactory alignment IMPRESSION: Left hip hemiarthroplasty with satisfactory alignment
--- NOTE | 2024-04-20 14:00 | PD.SUROPNT ---
Date of Procedure 04/20/24 Pre Op Diagnosis left displaced femoral neck fracture Post Op Diagnosis left displaced femoral neck fracture Procedure left hip hemiarthroplasty Findings displaced femoral neck fracture Procedure Description Indications: The patient is a 78y.o. year-old male with a left displaced femoral neck fracture that is displaced. We discussed hemiarthroplasty versus total hip arthroplasty. After discussion of the risks and benefits of each procedure, the patient want to proceed with a right hip hemiarthroplasty. Prior to the surgery I discussed the nature of the hip replacement surgery including alternatives to surgery and the purpose of, and indications for proceeding with surgery. I discussed that this surgery is a shared decision between the patient and the surgeon. Risks and benefits and alternatives of the procedure have been explained to the patient and their family. Anesthesia complications and risks include but are not limited to stroke, heart attack, and . The surgical risks include but are not limited to infection, instability/dislocation, bleeding, nerve and blood vessel injury, deep vein thrombosis, pulmonary embolus, stiffness, pain, scar, need for reoperation, leg length discrepancy, thigh numbness, weakness, and mechanical failure of the implant including loosening, metal complications, metal allergy, wear or breakage. I discussed the expected recovery from surgery and the importance of compliance with all our pre and post-operative recommendations in order to maximize the recovery. The patient/family understands the risks of loss of life, loss of limb and, loss of function and wishes to proceed. They understand they are at increased risk for infection given their history of smoking. A signed and witnessed consent was obtained and placed in the chart. Patient Positioning: The patient was placed in the lateral decubitus position on a standard table using a pegboard. An axillary role was placed. All extremities were padded to ensure adequate protection. A barrera catheter was aseptically inserted. Time Out: A timeout was performed prior to the procedure which verified the correct patient, positioning, operation to be performed, operative site, antibiotics, allergies, imaging, and any other concerns. All parties were in agreement. Procedure in detail: The operative site was cleaned and draped in the usual sterile fashion. A final timeout was performed with all parties in agreement. A modified anterolateral approach to the hip was utilized. A 12cm skin incision was made centered over the greater trochanter in line with the femur. This was taken down through skin and subcutaneous tissue using a 10 blade. Bleeding was controlled using electrocautery. The fascia was identified and split in line with the femur. The charnley retractor was then placed. The abductor insertion was identified and a split made in the anterior 1/3 of the tendon proximally. Retractors were placed and the gluteus minimus was visualized. A capsulotomy was made down to the femoral neck anterior to the minimus. A split was then made in the anterior 1/3 of the vastus lateralis. A retractor was then placed anterior to the femoral shaft, the tendon was tagged with #1 ethibond sutures and a U-shaped split was made in the anterior 1/3 of the abductor tendon being careful to leave enough tendon to re-attach. The hip was then gently externally rotated as the anterior tissues were taken down with the tendon and capsule as one sleeve. Once the anterior tissue had been release off of bone a bone hook was placed and the hip was gently dislocated. The prior femoral neck fracture was visualized. There was no intertroch extension, retractors were placed around the femoral neck and the femoral neck osteotomy was then made to freshen up the cut. The femoral head removed. The acetabulum was then exposed and we used a corkscrew to remove the remaining femoral head we used different guides to measure the size. It was found to be a 50 mm head and we used a trial to ensure that this had a nice suction fit was appropriate size. We then turned our attention to the femur. The leg was brought into external rotation and the femur was exposed. A canal finder was used followed by a box osteotomy and the femur was broached sequentially. The trial stem was then left in and the hip was trialed using various neck offsets and head sizes until the appropriate size was found based on leg length, stability. The trial was rotationally stable and we placed the final high offset size 5 actis stem. Leg lengths felt equal. The hip was then copiously irrigated. The hip was then injected with the cocktail per protocol The hip was the closed in layers. The abductor tendon was closed with #1 ethibond. The fascia was closed with 0 Vicryl followed by an 0 V-lock. . The deep layer was closed with 0-Vicryl and the subcutaneous layer by a 2-0 Vicryl. The subdermal layer was closed with a 3-0 monocryl. The skin was then cleaned and dried and steri-strips placed followed by a sterile dressing. The drapes were then taken down and the patient was placed supine. Leg lengths were confirmed to be appropriate and the patient's lower extremities were warm and well perfused with brisk capillary refill and palpable pulses. The patient was then awoken, transferred to the [facility] and taken to the PACU in stable condition. They tolerated the procedure well. The patient's family/caregiviers were made aware of their condition. Postoperative plan Activity: WBAT, no hip precautions , no active hip abduction DVT Prophylaxis: aspirin 81mg BID Antibiotics: Standard postoperative antibiotics x 24 hours Implants: [place] 50 bipolar head +3. HO 5 insignia Anesthesia GETA Implants edison Pathology / specimen None Pathology comment: none Estimated Blood Loss 100 Disposition floor Surgeon Devin Rice MD Surgical Staff Operation Date: 04/20/24 15:30 Case Staff DURABILITY TECHNICIAN: Freddy Pennington RNchief medical technologist: Dora Lamas
--- NOTE | 2024-04-20 14:40 | SUR.PHASEI ---
1440: Pt. arrived with oral airway in place, vitals stable, breathing unlabored, no signs of distress, dressing to left hip CDI, no active bleed noted, bilateral dorsalis pedis pulses strong and regular, cap refill to bilateral feet less than 3 seconds, report received from Jomar LARSEN and Nithin ANAYA.
--- NOTE | 2024-04-20 15:03 | XR_ITS ---
Examination: AP pelvis single view Technique one AP portable supine pelvis single view Exam date and time: April 20, 2024 1314 hours INDICATIONS: Postop hip replacement today FINDINGS: Left hip bipolar hemiarthroplasty. Satisfactory alignment No fracture Moderate narrowing right hip joint Prominent osteopenia IMPRESSION: Left hip hemiarthroplasty with satisfactory alignment
--- NOTE | 2024-04-20 15:25 | SUR.PHASEI ---
1525: Pt. wakes to name and answers questions, then drifts back to sleep, no complaint of pain or nausea, dressing to left hip CDI, no active bleed noted, pt. able to wiggle bilateral feet, cap refill to bilateral feet less than 3 seconds, report given to Cherelle ANAYA prior to transfer to room 355.
--- NOTE | 2024-04-20 15:29 | SUR.PHASEI ---
family made aware of transfer back to room 355A.
--- NOTE | 2024-04-20 20:14 | ECHO_ITS ---
Transthoracic Echo Report Ht (in): 67 Wt (lb): 141 Exam Location: Portable Status: Inpatient Practice Consultant: Cherelle Bryson Indications: Procedure Performed: BP: 151 / 88 HR: 94 Rhythm: Tachycardia Technical Quality: Technically difficult study MEASUREMENTS (Male / Female) Normal Values 2D ECHO LV Diastolic Diameter PLAX 4.3 cm 4.2 - 5.9 / 3.9 - 5.3 cm LV Systolic Diameter PLAX 3.1 cm IVS Diastolic Thickness 0.9 cm 0.6 - 1.0 / 0.6 - 0.9 cm LVPW Diastolic Thickness 0.8 cm 0.6 - 1.0 / 0.6 - 0.9 cm LV Relative Wall Thickness 0.4 LVOT Diameter 2.2 cm Ascending Aorta Diameter 3.1 cm M-MODE Aortic Root Diameter MM 3.3 cm LA Systolic Diameter MM 4.0 cm LA Ao Ratio MM 1.2 AV Cusp Separation MM 1.6 cm DOPPLER AV Peak Velocity 157.0 cm/s AV Peak Gradient 9.9 mmHg AV Mean Gradient 5.0 mmHg AV Velocity Time Integral 22.9 cm LVOT Peak Velocity 83.5 cm/s LVOT Peak Gradient 2.8 mmHg LVOT Velocity Time Integral 16.5 cm LVOT Cardiac Index 3388.7 cm?/min?m? AV Area Cont Eq vti 2.7 cm? AV Area Cont Eq pk 2.0 cm? MV Peak Velocity 106.0 cm/s MV Peak Gradient 4.5 mmHg MV Mean Velocity 52.2 cm/s MV Mean Gradient 2.0 mmHg MV Area PHT 5.9 cm? Mitral E Point Velocity 50.9 cm/s Mitral A Point Velocity 110.0 cm/s Mitral E to A Ratio 0.5 LV E' Lateral Velocity 9.4 cm/s Mitral E to LV E' Lateral Ratio 5.4 LV E' Septal Velocity 6.1 cm/s Mitral E to LV E' Septal Ratio 8.4 FINDINGS Left Ventricle Normal left ventricular size, wall thickness, systolic function with no obvious regional wall motion abnormalities. The ejection fraction is visually estimated at 50-55 %. Right Ventricle The right ventricle not well visualized. Left Atrium The left atrium is normal by two-dimensional, color flow and Doppler imaging with no structural abnormalities, no thrombus formation present. Right Atrium Right atrium is not well visualized. Atrial Septum The interatrial septum appears normal with no evidence of a shunt. Aorta The aorta is normal by two-dimensional, color flow and Doppler interrogation. Mitral Valve The mitral valve is normal by two-dimensional, color flow and Doppler interrogation. There is no sig nificant mitral valve regurgitation. Aortic Valve The aortic valve is trileaflet. Mild sclerosis without stenosis. There is trace aortic valve regurgi tation. Tricuspid Valve The tricuspid valve is not well visualized. Pulmonic Valve There is no significant pulmonic valve regurgitation. Vessels The pulmonary artery appears normal. Inferior vena cava not well visualized. Pericardium The pericardium is normal by two-dimensional imaging. There is no significant pericardial effusion. CONCLUSIONS Indication: Pre op Suboptimal images Normal LV size and function. Stage I diastolic dysfunction. Estimated EF 55-60% RV/RA not well visulalized. Moderate AV sclerosis without stenosis. Trace AI. Valve not visualized well - possible mild stenosis . Brennan Ray (Electronically Signed) Final Date: 21 April 2024 19:41
--- NOTE | 2024-04-20 20:23 | PC.NURSE ---
Called Sandy, patient's daughter, to inform about patient requiring to be on bilateral soft wrist restraints due to repeated attempts to remove barrera catheter and dressing to left hip. Daina agreed.
[2024-04-20] MEDS: MELATONIN 3 MG TABLET PO (20:43)
[2024-04-20] MEDS: HYDROcodone/APAP 5/325 TABLET 1 TAB PO (20:43)
[2024-04-21] VITALS (7 sets, daily range): BP systolic 130–152; BP diastolic 76–109; PULSE 75–106; RESP 16–100; TEMP 36.1–36.9; O2SAT 91–94
[2024-04-21 05:48] LABS: Basophils % (Auto) 0 % (0-2.5); Eosinophils # (Auto) 0.1 Thou/mm3 (0.0-0.5); Eosinophils % (Auto) 1 % (0-10); Hemoglobin 14.5 g/dL (13.5-16.0); Immature Granulocytes % (Auto) 0 % (0-0); Immature Granulocytes Auto 0.05 Thou/mm3 (0.00-0.00); Lymphocytes # (Auto) 1.2 Thou/mm3 (1.0-4.8); Lymphocytes % (Auto) 10 % (10-50); Mean Corpuscular Hemoglobin 29.6 pg (25.0-35.0); Mean Corpuscular Volume 90 fL (80-100); Monocytes # (Auto) 1.2 Thou/mm3 (0.0-0.8); Monocytes % (Auto) 10 % (0-12); Neutrophils # (Auto) 9.4 Thou/mm3 (1.8-7.7); Neutrophils % (Auto) 79 % (37-80); Nucleated Red Blood Cell % 0 /100 WBC (0); Platelet Count 271 Thou/mm3 (140-440); RDW Standard Deviation 45.4 fL (35.1-43.9)
[2024-04-21] MEDS: SENNA TABLET 1 TAB PO (06:17)
[2024-04-21 06:31] LABS: Alanine Aminotransferase 11 U/L (10-49); Albumin/Globulin Ratio 1.1 (1.2-2.2); Alkaline Phosphatase 84 U/L (46-116); Anion Gap 10 (7-16); Aspartate Amino Transferase 25 U/L (0-34); BUN/Creatinine Ratio 22 Ratio (12-20); Blood Urea Nitrogen 29 mg/dL (9-23); Calcium 8.9 mg/dL (8.3-10.6); Calcium (Corrected) 8.9 mg/dL (8.5-10.1); Carbon Dioxide 24.9 mMol/L (20.0-31.0); Chloride 102 mMol/L (98-107); Creatinine (Component) 1.3 mg/dL (0.6-1.3); Estimated Creatinine Clearance 40.9 mL/min (>60); Globulin 3.6 gm/dL (2.3-3.5); Glucose 93 mg/dL (74-106); Magnesium 2.2 mg/dL (1.6-2.6); Osmolality,Calculated 279 (275-295); Phosphorous 3.6 mg/dL (2.4-5.1); Potassium 4.2 mMol/L (3.4-5.1); Sodium 137 mMol/L (136-145); Total Protein 7.6 gm/dL (5.7-8.2); eGFR 56 See Note
[2024-04-21] MEDS: ceFAZolin/D5W 1 GM IVPB 1 GM/50 ML BAG IV (09:04)
[2024-04-21] MEDS: POLYETHYLENE GLYCOL 17 GM PACKET PO (09:04)
--- NOTE | 2024-04-21 09:04 | PC.SS ---
SS follow up: Spoke with Aisha at [facility], she informs patient is eligible to return back to the facility, patient is on a bed hold with the facility.
[2024-04-21] MEDS: PANTOPRAZOLE 40 MG TABLET PO (09:05)
[2024-04-21] MEDS: ASPIRIN EC 81 MG TABEC PO ×2 (09:05→21:25)
[2024-04-21] MEDS: HEPARIN SOD INJ 5000 UNIT/ML VIAL SC ×2 (09:05→21:26)
[2024-04-21] MEDS: LIDOCAINE 5% 1 PATCH TOP (09:53)
--- NOTE | 2024-04-21 10:35 | PC.PT ---
Patient is confused and on medical restraints today. Will hold PT eval and re-attempt tomorrow 04/22/24.
--- NOTE | 2024-04-21 10:42 | ESPR_ITS ---
<Statement entered by Alfonzo Lugo MD - 04/21/24 14:02> Patient was seen and examined at the bedside this morning. Patient is postop day 1 for hip fractures repair. Orthopedics recommended to continue with pain management and PT was ordered. Patient did have a white count elevation most likely reactive. We started with aspirin 81 mg twice daily for DVT prophylaxis and monitor patient for pain. All labs and orders were reviewed. I saw and examined the patient, and I agree with current management stated by Dr Zeyad MD,PGY1. Plan of care was discussed with the attending physician and resident physician. Disclaimer: Despite multiple revisions, due to the dictation software being used, the document bellow may not be free of grammatical errors including phonetic/typographic errors. However, this does not deter from our commitment to providing health care in the patient's best interest in mind. Dr. Parish MD, PGY 2 Documentation for date of: 04/21/24 Subjective Subjective Interval history: Patient is a 78-year-old male with a limited past medical history with dementia (only melatonin was started), hypertension, generalized weakness, and dysphagia who was admitted secondary to femur neck fracture. Overnight restraints were added for patient as they were pulling at the lines. This morning patient was noted to be tugging at abandoning for hemiarthroplasty. Lidocaine patch added. Given elevated hypertension, recommended nurse to start on pain management. X 1 dose of cefazolin being started. Aspirin 81 mg p.o. twice daily started for hip hemiarthroplasty. Exam Vital Signs Temp Pulse Resp BP Pulse Ox O2 Del Method O2 Flow Rate 98.2 F 100 19 140/79 H 92 L Nasal Cannula 8 04/21/24 08:00 04/21/24 08:00 04/21/24 08:00 04/21/24 08:00 04/21/24 08:00 04/21/24 08:00 04/20/24 20:00 Narrative Exam General Appearance: Alert & Oriented X0, well-nourished male who is lying in bed in no acute distress HEENT: Skull symmetrical and atraumatic. Conjunctivae pin and moist. Pupils equal, round, reactive to light and accommodation (PERRL). External ear without lesion or discharge. Straight, nares patient, mucosa pink, no discharge. No thyroid nodule appreciated. No cervical lymphadenopathy. Cardio: Normal Rate and Rhythm with S1 and S2 heart sounds. No murmurs or extra heart sounds auscultated. No bruits on carotid auscultation. No peripheral edema or cyanosis. Lungs: Symmetric with good expansion. Chest and back non-tender. Breath sounds vesicular without crackles, wheezing or rhonchi Abdomen: Non-tender, Non-distended, Normal Reactive Bowel Sounds Neuro: Yes Alert, Yes cooperative, No oriented to person, No place, and No time. Speech clear. CN grossly intact. Upper motor strength 5/5 and Lower motor strength 5/5. Sensation intact. Objective Labs 04/21/24 05:12 04/21/24 05:12 Labs: Laboratory Results - last 24 hr 04/21/24 05:12 WBC 12.0 H RBC 4.90 Hgb 14.5 Hct 44.0 MCV 90 MCH 29.6 MCHC 33.0 RDW Std Deviation 45.4 H Plt Count 271 Neut % (Auto) 79 Lymph % (Auto) 10 [place] % (Auto) 10 Eos % (Auto) 1 Baso % (Auto) 0 Neut # (Auto) 9.4 H Lymph # (Auto) 1.2 [place] # (Auto) 1.2 H Eos # (Auto) 0.1 Baso # (Auto) 0.0 Immature Gran # (Auto) 0.05 H Absolute Nucleated RBC 0.00 Immature Gran % 0 Nucleated RBC % 0 Sodium 137 Potassium 4.2 Chloride 102 Carbon Dioxide 24.9 Anion Gap 10 BUN 29 H Creatinine 1.3 Estim Creat Clear Calc 40.9 L eGFR 56 L BUN/Creatinine Ratio 22 H Glucose 93 Calculated Osmolality 279 Calcium 8.9 Corrected Calcium 8.9 Phosphorus 3.6 Magnesium 2.2 Total Bilirubin 1.0 AST 25 ALT 11 Alkaline Phosphatase 84 Total Protein 7.6 Albumin 4.0 Globulin 3.6 H Albumin/Globulin Ratio 1.1 L Quality Measures Quality Measures VTE prophylaxis Advance care planning discussed with:: other Assessment & Plan Assessment Current Active Medications: Generic Name Dose Route Start Last Admin Trade Name Freq PRN Reason Stop Dose Admin Acetaminophen 650 mg 04/19/24 13:15 Acetaminophen 325 Mg Tablet PO 05/19/24 13:14 Q8H PRN PAIN OR FEVER > 100.3 Hydrocodone Bitart/Acetaminophen 1 tab 04/18/24 08:12 04/20/24 20:43 Hydrocodone/Apap 5/325 Tablet PO 04/23/24 08:11 1 tab Q4HR PRN Administration PAIN SCALE 4-6 (Moderate Aspirin 81 mg 04/21/24 09:00 04/21/24 09:05 Aspirin Ec 81 Mg Tabec PO 05/21/24 08:59 81 mg BID KALLI Administration Heparin Sodium (Porcine) 5,000 unit 04/21/24 09:00 04/21/24 09:05 Heparin Sod Inj 5000 Unit/Ml Vial SC 05/05/24 08:59 5,000 unit Q12HR KALLI Administration Melatonin 3 mg 04/18/24 21:00 04/20/24 20:43 Melatonin 3 Mg Tablet PO 05/18/24 20:59 3 mg HS PRN Administration INSOMNIA Morphine Sulfate 2 mg 04/17/24 01:06 Morphine Sulf Inj 10 Mg/Ml Vial IVP 04/22/24 01:05 Q4H PRN PAIN SCALE 7-10 (Severe Ondansetron HCl 4 mg 04/18/24 08:12 Ondansetron Inj 2 Mg/Ml Inj 2 Ml IV 05/18/24 08:11 Q6H PRN NAUSEA OR VOMITING Protocol Pantoprazole Sodium 40 mg 04/18/24 09:00 04/21/24 09:05 Pantoprazole 40 Mg Tablet PO 05/18/24 08:59 40 mg QDAY KALLI Administration Polyethylene Glycol 17 gm 04/18/24 09:00 04/21/24 09:04 Polyethylene Glycol 17 Gm Packet PO 05/18/24 08:59 17 gm QDAY KALLI Administration Sennosides 1 tab 04/18/24 08:12 04/21/24 06:17 Senna Tablet PO 05/18/24 08:11 1 tab QDAY PRN Administration constipation Protocol Plan Patient is a 78-year-old male with a limited past medical history with dementia (only melatonin was started), hypertension, generalized weakness, and dysphagia who was admitted secondary to femur neck fracture. # Ground-level fall # Acute left femoral neck fracture s/p hemiarthroplasty Patient had a ground-level fall at [facility]. On exam patient's left lower extremity shortened and externally rotated. On hip x-ray, left femoral neck fracture. Plan: ?Acetaminophen 650 Mg p.o. every 6 hourly as needed for fever, [place] 5, Morphine 2 Mg IV Q4 hourly -Lidocaine Patch -Cefazolanine X 1 -Aspirin 81 mg QDay -bowel regimen added. -Zofran -Cardio consulted, appreciated recommendations. ? Orthopedics, Dr. Rice consulted and closely following the case. Appreciate recommendations # Acute Kidney Injury, likely prerenal Likely pre-renal secondary to poor oral intake Plan: -NS 1/2 bolus X 1 04/21/2024 ?Avoid nephrotoxic agent ? Renally dose medication # Essential hypertension Patient does not appear to be on any home medication. Blood pressure within range during hospital course. Plan: ? Monitor blood pressures while in hospital # Dementia At baseline patient is oriented to self only. Plan: On restrains Melotonin PRN Health Maintenance: Disp: Pt is currently admitted to floors for further management of femoral fracture, awaiting s/p hemiarthroplasty FEN: normal diet after surgery DVT: restart subq heparin after surgery Code: Full code - The patient's plan was discussed with attending Dr. Maria and senior residents Dr. Parish Jeffers MD PGY1 Internal Medicine Attending Provider Attestation/Addendum I have discussed and was present for the essential components of the history, physical examination, diagnosis, and treatment plan with the resident. I agree with the patient's care as documented by the resident and amended herein by me. Arnav Maria, DO. Patient seen and evaluated this AM. Vital signs stable, patient afebrile overnight. Patient had to be restrained overnight due to attempted to pull out his Breaux, the patient is altered in the AM. Labs largely unremarkable, WBC is 12. POD 1, per orthopedic surgery recommendations WBAT, start aspirin 81 mg twice daily, antibiotics continue for 24 hours and physical therapy will be ordered for the patient. Will continue to monitor closely [place] Although this document has been carefully reviewed, there may still be some phonetic and other typographical errors. These errors are purely grammatical due to imperfections in the software program and should not be construed in any way to compromise the substance of the patient's medical care during this visit.
--- NOTE | 2024-04-21 13:29 | ESPR_ITS ---
Documentation for date of: 04/21/24 Subjective Subjective Interval history: 04/21/2024: Patient examined at bedside today. No acute overnight events on telemetry. Will continue for pain management as patient tolerated hip left hemiarthroplasty for displaced femoral neck fracture. No cardiac complications. Patient BUN/creatinine 29 and 1.3 today respectively, hemoglobin of 14.5. Will continue to treat pain. Exam Vital Signs Temp Pulse Resp BP Pulse Ox O2 Del Method O2 Flow Rate 98.2 F 100 19 140/79 H 92 L Nasal Cannula 8 04/21/24 08:00 04/21/24 08:00 04/21/24 08:00 04/21/24 08:00 04/21/24 08:00 04/21/24 08:00 04/20/24 20:00 Narrative Exam General: AAOx1, NAD, pashto speaking male much more awake and talkative today HEENT: Moist mucous membranes, conjunctiva clear, EOMI, PERRLA, Cardiovascular: S1, S2, radial pulses +2 bilat, RRR Pulmonary: CTAB bilat no cough, no wheezing GI: No tenderness to light or deep palpitation, no guarding, rigidity, rebound tenderness or distension Extremities: No presence of trace or pitting edema in lower extremities bilaterally, dorsalis pedis pulses +2 bilaterally MSK: Bandage over left hip is dry, skin not ulcerated or erythematous. Neuro: AAOx1 Psych: Cooperative Objective Labs 04/21/24 05:12 04/21/24 05:12 Labs: Laboratory Results - last 24 hr 04/21/24 05:12 WBC 12.0 H RBC 4.90 Hgb 14.5 Hct 44.0 MCV 90 MCH 29.6 MCHC 33.0 RDW Std Deviation 45.4 H Plt Count 271 Neut % (Auto) 79 Lymph % (Auto) 10 [place] % (Auto) 10 Eos % (Auto) 1 Baso % (Auto) 0 Neut # (Auto) 9.4 H Lymph # (Auto) 1.2 [place] # (Auto) 1.2 H Eos # (Auto) 0.1 Baso # (Auto) 0.0 Immature Gran # (Auto) 0.05 H Absolute Nucleated RBC 0.00 Immature Gran % 0 Nucleated RBC % 0 Sodium 137 Potassium 4.2 Chloride 102 Carbon Dioxide 24.9 Anion Gap 10 BUN 29 H Creatinine 1.3 Estim Creat Clear Calc 40.9 L eGFR 56 L BUN/Creatinine Ratio 22 H Glucose 93 Calculated Osmolality 279 Calcium 8.9 Corrected Calcium 8.9 Phosphorus 3.6 Magnesium 2.2 Total Bilirubin 1.0 AST 25 ALT 11 Alkaline Phosphatase 84 Total Protein 7.6 Albumin 4.0 Globulin 3.6 H Albumin/Globulin Ratio 1.1 L Quality Measures Quality Measures VTE prophylaxis Advance care planning discussed with:: patient Assessment & Plan Assessment Current Active Medications: Generic Name Dose Route Start Last Admin Trade Name Freq PRN Reason Stop Dose Admin Acetaminophen 650 mg 04/19/24 13:15 Acetaminophen 325 Mg Tablet PO 05/19/24 13:14 Q8H PRN PAIN OR FEVER > 100.3 Hydrocodone Bitart/Acetaminophen 1 tab 04/18/24 08:12 04/20/24 20:43 Hydrocodone/Apap 5/325 Tablet PO 04/23/24 08:11 1 tab Q4HR PRN Administration PAIN SCALE 4-6 (Moderate Aspirin 81 mg 04/21/24 09:00 04/21/24 09:05 Aspirin Ec 81 Mg Tabec PO 05/21/24 08:59 81 mg BID KALLI Administration Heparin Sodium (Porcine) 5,000 unit 04/21/24 09:00 04/21/24 09:05 Heparin Sod Inj 5000 Unit/Ml Vial SC 05/05/24 08:59 5,000 unit Q12HR KALLI Administration Melatonin 3 mg 04/18/24 21:00 04/20/24 20:43 Melatonin 3 Mg Tablet PO 05/18/24 20:59 3 mg HS PRN Administration INSOMNIA Morphine Sulfate 2 mg 04/17/24 01:06 Morphine Sulf Inj 10 Mg/Ml Vial IVP 04/22/24 01:05 Q4H PRN PAIN SCALE 7-10 (Severe Ondansetron HCl 4 mg 04/18/24 08:12 Ondansetron Inj 2 Mg/Ml Inj 2 Ml IV 05/18/24 08:11 Q6H PRN NAUSEA OR VOMITING Protocol Pantoprazole Sodium 40 mg 04/18/24 09:00 04/21/24 09:05 Pantoprazole 40 Mg Tablet PO 05/18/24 08:59 40 mg QDAY KALLI Administration Polyethylene Glycol 17 gm 04/18/24 09:00 04/21/24 09:04 Polyethylene Glycol 17 Gm Packet PO 05/18/24 08:59 17 gm QDAY KALLI Administration Sennosides 1 tab 04/18/24 08:12 04/21/24 06:17 Senna Tablet PO 05/18/24 08:11 1 tab QDAY PRN Administration constipation Protocol Plan Assessment Harvey is an 78 y/o male with PMHx past medical history of essential hypertension and (dementia?) who is brought in [facility] from [facility] who is admitted for L femoral neck hip fracture that will require surgical intervention. #L femoral neck hip fracture Patient will require cardiac clearance for this surgery Upon reviewing information that we have been using revised cardiac index patient has 0 points calculated with the risk of major cardiac event 3.9% Unsure if patient is on any blood thinners, hemoglobin stable ~14 EKG showed low voltage in precordial leads, NSR, rate 82, no ST changes A1c 5.4, TSH 0.78, and Lipid panel includes total cholesterol 195, LDL 127 Bedside echo shows EF 55-60%, normal LV, some aortic valve calcification. Cardiac clearance approved Coagulation panel normal today has not been given any heparin subcu. Patient tolerated left hemiarthroplasty for displaced femoral neck fracture done by Dr. Rice Will continue with pain management Plan: ? Orthopedic surgery, Dr. Rice, on consult appreciate recs ? Tylenol 650 mg as needed ? [place] 5 every 4 as needed ? Do not exceed over 3 g of Tylenol within 24 hours. #History of hypertension Unsure if patient is on blood pressure medicines at home none reviewed upon med rec Plan: ? Will not resume blood pressure medicine at this time, will control patient's pain at this time. #?KATIE on CKD, improving Do not have baseline on patient, patient came with a creatinine of 1.4, currently at 1.3 Cr 1.3 Plan: ?Trend with CMP #History of dementia No medicines seen upon med rec Plan: ? Avoid sundowning patient Patient seen and care discussed with my attending physician, Dr. Flor Cruz, PGY-1 Attending Provider Attestation/Addendum I have personally seen and examined the patient separately on the above date of service and discussed the plan of care with the resident. I reviewed the resident Dr. Willson consultation progress note and agree with the resident findings and plan in the note above and have also edited the documentation to reflect my findings and plan. Brennan Ray M.D. Interventional Cardiology
[2024-04-21] MEDS: MORPHINE SULF INJ 10 MG/ML VIAL IVP (14:13)
--- NOTE | 2024-04-21 15:05 | PC.NURSE ---
Dr. Rivero made aware of patient blood pressure 130/107 prior to infusing 500ml, MD already aware of blood pressure, ok to give bolus.
[2024-04-21] MEDS: SODIUM CHLORIDE 0.9% 500 ML 500 ML 999 ML IV (16:04)
[2024-04-22] VITALS: BP 150/92; PULSE 109; RESP 20; TEMP 36.3; O2SAT 92
[2024-04-22 04:00] VITALS: BP 142/87; PULSE 99; RESP 20; TEMP 36.3; O2SAT 96
[2024-04-22 06:06] LABS: Basophils # (Auto) 0.1 Thou/mm3 (0.0-0.2); Basophils % (Auto) 1 % (0-2.5); Eosinophils # (Auto) 0.1 Thou/mm3 (0.0-0.5); Eosinophils % (Auto) 1 % (0-10); Hematocrit 41.6 % (41.0-53.0); Hemoglobin 13.8 g/dL (13.5-16.0); Immature Granulocytes % (Auto) 0 % (0-0); Immature Granulocytes Auto 0.04 Thou/mm3 (0.00-0.00); Lymphocytes # (Auto) 1.1 Thou/mm3 (1.0-4.8); Lymphocytes % (Auto) 11 % (10-50); Mean Corpuscular HGB Conc 33.2 g/dl (31.0-37.0); Mean Corpuscular Hemoglobin 29.8 pg (25.0-35.0); Mean Corpuscular Volume 90 fL (80-100); Monocytes # (Auto) 1.2 Thou/mm3 (0.0-0.8); Monocytes % (Auto) 11 % (0-12); Neutrophils # (Auto) 7.9 Thou/mm3 (1.8-7.7); Neutrophils % (Auto) 77 % (37-80); Nucleated Red Blood Cell % 0 /100 WBC (0); Platelet Count 262 Thou/mm3 (140-440); RDW Standard Deviation 44.9 fL (35.1-43.9); Red Blood Count 4.63 Miln/mm3 (4.50-5.90); White Blood Count 10.3 Thou/mm3 (3.8-10.6)
[2024-04-22 06:47] LABS: Alanine Aminotransferase 13 U/L (10-49); Albumin/Globulin Ratio 1.1 (1.2-2.2); Alkaline Phosphatase 102 U/L (46-116); Anion Gap 10 (7-16); Aspartate Amino Transferase 33 U/L (0-34); BUN/Creatinine Ratio 21 Ratio (12-20); Bilirubin,Total 1.1 mg/dL (0.3-1.2); Blood Urea Nitrogen 23 mg/dL (9-23); Calcium 9.1 mg/dL (8.3-10.6); Calcium (Corrected) 9.1 mg/dL (8.5-10.1); Carbon Dioxide 24.6 mMol/L (20.0-31.0); Chloride 103 mMol/L (98-107); Creatinine (Component) 1.1 mg/dL (0.6-1.3); Estimated Creatinine Clearance 48.3 mL/min (>60); Globulin 3.5 gm/dL (2.3-3.5); Glucose 94 mg/dL (74-106); Magnesium 2.3 mg/dL (1.6-2.6); Osmolality,Calculated 279 (275-295); Phosphorous 2.5 mg/dL (2.4-5.1); Potassium 4.1 mMol/L (3.4-5.1); Sodium 138 mMol/L (136-145); Total Protein 7.5 gm/dL (5.7-8.2); eGFR > 60 See Note
[2024-04-22 07:54] VITALS: BP 141/89; PULSE 94; RESP 20; TEMP 36.3; O2SAT 96
[2024-04-22] MEDS: POLYETHYLENE GLYCOL 17 GM PACKET PO (09:34)
[2024-04-22] MEDS: PANTOPRAZOLE 40 MG TABLET PO (09:34)
[2024-04-22] MEDS: HYDROcodone/APAP 5/325 TABLET 1 TAB PO (09:34)
[2024-04-22] MEDS: HEPARIN SOD INJ 5000 UNIT/ML VIAL SC ×2 (09:34→21:55)
[2024-04-22] MEDS: ASPIRIN EC 81 MG TABEC PO ×2 (09:35→21:53)
[2024-04-22 12:00] VITALS: BP 132/86; PULSE 94; RESP 20; TEMP 36.3; O2SAT 96
--- NOTE | 2024-04-22 13:32 | ESPR_ITS ---
<Statement entered by Alfonzo Lugo MD - 04/22/24 15:35> Patient was seen and examined at the bedside. Patient was alert and talking to us. Last night patient was placed on restraints due to pulling out of telemetry box therefore restraints were removed today as he was more alert and oriented. Remove the Breaux catheter and his Seroquel 25 mg was scheduled for tonight. Labs were unremarkable this morning. Kidney functions showed BUN 23 and creatinine 1.1. PT recommended SNF placement. Will likely discharge the patient tomorrow morning. All labs and orders were reviewed. I saw and examined the patient, and I agree with current management stated by Dr Zeyad MD,PGY1. Plan of care was discussed with the attending physician and resident physician. Disclaimer: Despite multiple revisions, due to the dictation software being used, the document bellow may not be free of grammatical errors including phonetic/typographic errors. However, this does not deter from our commitment to providing health care in the patient's best interest in mind. Dr. Parish MD, PGY 2 Documentation for date of: 04/22/24 Subjective Subjective Interval history: Restraints removed for patient. Breaux catheter removed. One-to-one sitter added. Seroquel initiated for overnight starting 04/22/2024. Patient denied pain. Patient denied surgery. Dementia at baseline. Soft mittens added. Please keep patient off restraints and only on mittens if possible overnight, SNF planned for tomorrow. Exam Vital Signs Temp Pulse Resp BP Pulse Ox O2 Del Method O2 Flow Rate 97.3 F 94 20 132/86 H 96 Room Air 8 04/22/24 12:04/22/24 12:04/22/24 12:04/22/24 12:04/22/24 12:04/22/24 12:04/20/24 20:00 Narrative Exam General Appearance: Alert & Oriented X0, well-nourished male who is lying in bed in no acute distress HEENT: Skull symmetrical and atraumatic. Conjunctivae pin and moist. Pupils equal, round, reactive to light and accommodation (PERRL). External ear without lesion or discharge. Straight, nares patient, mucosa pink, no discharge. No thyroid nodule appreciated. No cervical lymphadenopathy. Cardio: Normal Rate and Rhythm with S1 and S2 heart sounds. No murmurs or extra heart sounds auscultated. No bruits on carotid auscultation. No peripheral edema or cyanosis. Lungs: Symmetric with good expansion. Chest and back non-tender. Breath sounds vesicular without crackles, wheezing or rhonchi Abdomen: Non-tender, Non-distended, Normal Reactive Bowel Sounds Neuro: Yes Alert, Yes cooperative, NO oriented to person, No place, and No time. Speech clear. CN grossly intact. Upper motor strength 5/5 and Lower motor strength 5/5. Sensation intact. Objective Labs 04/22/24 05:23 04/22/24 05:23 Labs: Laboratory Results - last 24 hr 04/22/24 05:23 WBC 10.3 RBC 4.63 Hgb 13.8 Hct 41.6 MCV 90 MCH 29.8 MCHC 33.2 RDW Std Deviation 44.9 H Plt Count 262 Neut % (Auto) 77 Lymph % (Auto) 11 [place] % (Auto) 11 Eos % (Auto) 1 Baso % (Auto) 1 Neut # (Auto) 7.9 H Lymph # (Auto) 1.1 [place] # (Auto) 1.2 H Eos # (Auto) 0.1 Baso # (Auto) 0.1 Immature Gran # (Auto) 0.04 H Absolute Nucleated RBC 0.00 Immature Gran % 0 Nucleated RBC % 0 Sodium 138 Potassium 4.1 Chloride 103 Carbon Dioxide 24.6 Anion Gap 10 BUN 23 Creatinine 1.1 Estim Creat Clear Calc 48.3 L eGFR > 60 BUN/Creatinine Ratio 21 H Glucose 94 Calculated Osmolality 279 Calcium 9.1 Corrected Calcium 9.1 Phosphorus 2.5 Magnesium 2.3 Total Bilirubin 1.1 AST 33 ALT 13 Alkaline Phosphatase 102 D Total Protein 7.5 Albumin 4.0 Globulin 3.5 Albumin/Globulin Ratio 1.1 L Quality Measures Quality Measures VTE prophylaxis Advance care planning discussed with:: other Assessment & Plan Assessment Current Active Medications: Generic Name Dose Route Start Last Admin Trade Name Freq PRN Reason Stop Dose Admin Acetaminophen 650 mg 04/19/24 13:15 Acetaminophen 325 Mg Tablet PO 05/19/24 13:14 Q8H PRN PAIN OR FEVER > 100.3 Hydrocodone Bitart/Acetaminophen 1 tab 04/18/24 08:12 04/22/24 09:34 Hydrocodone/Apap 5/325 Tablet PO 04/23/24 08:11 1 tab Q4HR PRN Administration PAIN SCALE 4-6 (Moderate Aspirin 81 mg 04/21/24 09:00 04/22/24 09:35 Aspirin Ec 81 Mg Tabec PO 05/21/24 08:59 81 mg BID KALLI Administration Heparin Sodium (Porcine) 5,000 unit 04/21/24 09:00 04/22/24 09:34 Heparin Sod Inj 5000 Unit/Ml Vial SC 05/05/24 08:59 5,000 unit Q12HR KALLI Administration Melatonin 3 mg 04/18/24 21:00 04/20/24 20:43 Melatonin 3 Mg Tablet PO 05/18/24 20:59 3 mg HS PRN Administration INSOMNIA Ondansetron HCl 4 mg 04/18/24 08:12 Ondansetron Inj 2 Mg/Ml Inj 2 Ml IV 05/18/24 08:11 Q6H PRN NAUSEA OR VOMITING Protocol Pantoprazole Sodium 40 mg 04/18/24 09:00 04/22/24 09:34 Pantoprazole 40 Mg Tablet PO 05/18/24 08:59 40 mg QDAY KALLI Administration Polyethylene Glycol 17 gm 04/18/24 09:00 04/22/24 09:34 Polyethylene Glycol 17 Gm Packet PO 05/18/24 08:59 17 gm QDAY KALLI Administration Quetiapine Fumarate 25 mg 04/22/24 21:00 Quetiapine Fumarate 25 Mg Tablet PO 05/22/24 20:59 HS KALLI Sennosides 1 tab 04/18/24 08:12 04/21/24 06:17 Senna Tablet PO 05/18/24 08:11 1 tab QDAY PRN Administration constipation Protocol Plan Patient is a 78-year-old male with a limited past medical history with dementia (only melatonin was started), hypertension, generalized weakness, and dysphagia who was admitted secondary to femur neck fracture. # Ground-level fall # Acute left femoral neck fracture s/p hemiarthroplasty Patient had a ground-level fall at [facility]. On exam patient's left lower extremity shortened and externally rotated. On hip x-ray, left femoral neck fracture. Plan: ?Acetaminophen 650 Mg p.o. every 6 hourly as needed for fever, [place] 5, Morphine 2 Mg IV Q4 hourly -Lidocaine Patch x1 -Cefazolanine X 1 -Aspirin 81 mg QDay -bowel regimen added. -Zofran -Cardio consulted, appreciated recommendations. ? Orthopedics, Dr. Rice consulted and closely following the case. Appreciate recommendations # Acute Kidney Injury, likely prerenal, improved Likely pre-renal secondary to poor oral intake. Patient has received in total two 1/2 bolus during hospitalization course. Creatinine improved today. 1:1 sitter added to paitnet. Plan: ?Avoid nephrotoxic agent ? Renally dose medication # Essential hypertension Patient does not appear to be on any home medication. Blood pressure within range during hospital course. Some systolic 150, likely secondary to pain but blood pressure has been 130s on 04/22/2024. Continue to hold off any anti- hypertensive medication. Plan: ? Monitor blood pressures while in hospital # Dementia At baseline patient is oriented to self only. Plan: -Soft Mittens -Seroquel 25 mg HS, started on 04/22/2024 -Breaux Removed. -Melotonin PRN Health Maintenance: Disp: Pt is currently admitted to floors for further management of femoral fracture, awaiting SNF placement FEN: normal diet DVT: restart subq heparin after surgery Code: Full code - The patient's plan was discussed with attending Dr. Maria and senior residents Dr. Parish Jeffers MD PGY1 Internal Medicine Attending Provider Attestation/Addendum I have discussed and was present for the essential components of the history, physical examination, diagnosis, and treatment plan with the resident. I agree with the patient's care as documented by the resident and amended herein by me. Arnav Maria, DO Although this document has been carefully reviewed, there may still be some phonetic and other typographical errors. These errors are purely grammatical due to imperfections in the software program and should not be construed in any way to compromise the substance of the patient's medical care during this visit.
--- NOTE | 2024-04-22 13:52 | ESPR_ITS ---
Documentation for date of: 04/22/24 Subjective Subjective Interval history: 04/21/2024: Patient examined at bedside today. No acute overnight events on telemetry. Will continue for pain management as patient tolerated hip left hemiarthroplasty for displaced femoral neck fracture. No cardiac complications. Patient BUN/creatinine 29 and 1.3 today respectively, hemoglobin of 14.5. Will continue to treat pain. 04/22/2024: Patient examined at bedside today. No acute overnight events on telemetry. Says that he is doing good. He was put on soft manage drinks because he was pulling out his Breaux and lines. BUN/creatinine 23 and 1.1, hemoglobin 14, potassium 4.1 and magnesium 2.3. We recommend to do scheduled pain medicine. Patient's blood pressure was in the upper 140s, we recommend also starting DAINA/ARB as patient has history of hypertension but no home medicines. Will need to stay another day because pt needs to be off restraints for more than 24 hours. Exam Vital Signs Temp Pulse Resp BP Pulse Ox O2 Del Method O2 Flow Rate 97.3 F 94 20 132/86 H 96 Room Air 8 04/22/24 12:00 04/22/24 12:00 04/22/24 12:00 04/22/24 12:00 04/22/24 12:00 04/22/24 12:00 04/20/24 20:00 Narrative Exam General: AAOx1, NAD, portuguese speaking male HEENT: Moist mucous membranes, conjunctiva clear, EOMI, PERRLA, Cardiovascular: S1, S2, radial pulses +2 bilat, RRR Pulmonary: CTAB bilat no cough, no wheezing GI: No tenderness to light or deep palpitation, no guarding, rigidity, rebound tenderness or distension Extremities: No presence of trace or pitting edema in lower extremities bilaterally, dorsalis pedis pulses +2 bilaterally MSK: Bandage over left hip is dry, skin not ulcerated or erythematous. Neuro: AAOx1 Psych: Cooperative Objective Labs 04/22/24 05:23 04/22/24 05:23 Labs: Laboratory Results - last 24 hr 04/22/24 05:23 WBC 10.3 RBC 4.63 Hgb 13.8 Hct 41.6 MCV 90 MCH 29.8 MCHC 33.2 RDW Std Deviation 44.9 H Plt Count 262 Neut % (Auto) 77 Lymph % (Auto) 11 [place] % (Auto) 11 Eos % (Auto) 1 Baso % (Auto) 1 Neut # (Auto) 7.9 H Lymph # (Auto) 1.1 [place] # (Auto) 1.2 H Eos # (Auto) 0.1 Baso # (Auto) 0.1 Immature Gran # (Auto) 0.04 H Absolute Nucleated RBC 0.00 Immature Gran % 0 Nucleated RBC % 0 Sodium 138 Potassium 4.1 Chloride 103 Carbon Dioxide 24.6 Anion Gap 10 BUN 23 Creatinine 1.1 Estim Creat Clear Calc 48.3 L eGFR > 60 BUN/Creatinine Ratio 21 H Glucose 94 Calculated Osmolality 279 Calcium 9.1 Corrected Calcium 9.1 Phosphorus 2.5 Magnesium 2.3 Total Bilirubin 1.1 AST 33 ALT 13 Alkaline Phosphatase 102 D Total Protein 7.5 Albumin 4.0 Globulin 3.5 Albumin/Globulin Ratio 1.1 L Quality Measures Quality Measures VTE prophylaxis Advance care planning discussed with:: patient Assessment & Plan Assessment Current Active Medications: Generic Name Dose Route Start Last Admin Trade Name Freq PRN Reason Stop Dose Admin Acetaminophen 650 mg 04/19/24 13:15 Acetaminophen 325 Mg Tablet PO 05/19/24 13:14 Q8H PRN PAIN OR FEVER > 100.3 Hydrocodone Bitart/Acetaminophen 1 tab 04/18/24 08:12 04/22/24 09:34 Hydrocodone/Apap 5/325 Tablet PO 04/23/24 08:11 1 tab Q4HR PRN Administration PAIN SCALE 4-6 (Moderate Aspirin 81 mg 04/21/24 09:00 04/22/24 09:35 Aspirin Ec 81 Mg Tabec PO 05/21/24 08:59 81 mg BID KALLI Administration Heparin Sodium (Porcine) 5,000 unit 04/21/24 09:00 04/22/24 09:34 Heparin Sod Inj 5000 Unit/Ml Vial SC 05/05/24 08:59 5,000 unit Q12HR KALLI Administration Melatonin 3 mg 04/18/24 21:00 04/20/24 20:43 Melatonin 3 Mg Tablet PO 05/18/24 20:59 3 mg HS PRN Administration INSOMNIA Ondansetron HCl 4 mg 04/18/24 08:12 Ondansetron Inj 2 Mg/Ml Inj 2 Ml IV 05/18/24 08:11 Q6H PRN NAUSEA OR VOMITING Protocol Pantoprazole Sodium 40 mg 04/18/24 09:00 04/22/24 09:34 Pantoprazole 40 Mg Tablet PO 05/18/24 08:59 40 mg QDAY KALLI Administration Polyethylene Glycol 17 gm 04/18/24 09:00 04/22/24 09:34 Polyethylene Glycol 17 Gm Packet PO 05/18/24 08:59 17 gm QDAY KALLI Administration Quetiapine Fumarate 25 mg 04/22/24 21:00 Quetiapine Fumarate 25 Mg Tablet PO 05/22/24 20:59 HS KALLI Sennosides 1 tab 04/18/24 08:12 04/21/24 06:17 Senna Tablet PO 05/18/24 08:11 1 tab QDAY PRN Administration constipation Protocol Plan Assessment Harvey is an 78 y/o male with PMHx past medical history of essential hypertension and (dementia?) who is brought in [facility] from [facility] who is admitted for L femoral neck hip fracture that will require surgical intervention. #L femoral neck hip fracture Patient will require cardiac clearance for this surgery Upon reviewing information that we have been using revised cardiac index patient has 0 points calculated with the risk of major cardiac event 3.9% Unsure if patient is on any blood thinners, hemoglobin stable ~14 EKG showed low voltage in precordial leads, NSR, rate 82, no ST changes A1c 5.4, TSH 0.78, and Lipid panel includes total cholesterol 195, LDL 127 Bedside echo shows EF 55-60%, normal LV, some aortic valve calcification. Cardiac clearance approved Coagulation panel normal today has not been given any heparin subcu. Patient tolerated left hemiarthroplasty for displaced femoral neck fracture done by Dr. Rice Will continue with pain management Plan: ? Orthopedic surgery, Dr. Rice, on consult appreciate recs ? Tylenol 650 mg as needed ? [place] 5 every 4 as needed ? Do not exceed over 3 g of Tylenol within 24 hours. #History of hypertension Unsure if patient is on blood pressure medicines at home none reviewed upon med rec, however has a hx of it. Plan: ?Recommend to start DAINA/ARB #?KATIE, resolved #History of dementia No medicines seen upon med rec Plan: ? Avoid sundowning patient Patient seen and care discussed with my attending physician, Dr. Flor Cruz, PGY-1 Attending Provider Attestation/Addendum I reviewed the resident Dr. Willson consultation progress note and agree with the resident findings and plan in the note above and have also edited the documentation to reflect my findings and plan. Brennan Ray M.D. Interventional Cardiology
--- NOTE | 2024-04-22 14:37 | PC.SS ---
Rounding note: patient came off of restraints, anticipate d/c tomorrow back to SNF.
[2024-04-22 15:28] VITALS: BMI 12.0
[2024-04-22 16:00] VITALS: BP 105/71; PULSE 99; RESP 24; TEMP 37.2; O2SAT 95
[2024-04-22] MEDS: QUEtiapine FUMARATE 25 MG TABLET PO (21:53)
[2024-04-23] VITALS: BP 125/73; PULSE 71; RESP 18; TEMP 36.7; O2SAT 97
[2024-04-23 06:48] LABS: Alanine Aminotransferase 19 U/L (10-49); Albumin, Serum 3.8 gm/dL (3.4-4.8); Albumin/Globulin Ratio 1.1 (1.2-2.2); Alkaline Phosphatase 122 U/L (46-116); Anion Gap 9 (7-16); Aspartate Amino Transferase 52 U/L (0-34); BUN/Creatinine Ratio 24 Ratio (12-20); Bilirubin,Total 0.8 mg/dL (0.3-1.2); Blood Urea Nitrogen 26 mg/dL (9-23); Calcium (Corrected) 9.2 mg/dL (8.5-10.1); Chloride 102 mMol/L (98-107); Creatinine (Component) 1.1 mg/dL (0.6-1.3); Estimated Creatinine Clearance 48.3 mL/min (>60); Globulin 3.5 gm/dL (2.3-3.5); Glucose 114 mg/dL (74-106); Magnesium 2.2 mg/dL (1.6-2.6); Osmolality,Calculated 275 (275-295); Phosphorous 2.8 mg/dL (2.4-5.1); Sodium 135 mMol/L (136-145); Total Protein 7.3 gm/dL (5.7-8.2); eGFR > 60 See Note
[2024-04-23 08:13] VITALS: BP 128/76; PULSE 65; RESP 16; TEMP 35.9; O2SAT 95
[2024-04-23] MEDS: PANTOPRAZOLE 40 MG TABLET PO (08:17)
[2024-04-23] MEDS: POLYETHYLENE GLYCOL 17 GM PACKET PO (08:17)
[2024-04-23] MEDS: HEPARIN SOD INJ 5000 UNIT/ML VIAL SC (08:17)
[2024-04-23] MEDS: ASPIRIN EC 81 MG TABEC PO (08:17)
--- NOTE | 2024-04-23 10:46 | PC.SS ---
Addendum entered by YANCY Chan 04/23/24 14:17: ETA is 3:30pm via [facility]. Bed side nurse aware. Original Note: SS update: patient to d/c today and return to [facility]. Informed Aisha at [facility] that patient would be ready for d/c. Informed patient's daughter, that the patient would be returning to SNF, she was agreeable. Sent Aisha updated notes via [employer]. Aisha is requesting to know patient's weight barring status as not reflected on PT note.
[2024-04-23 11:25] LABS: Basophils % (Auto) 0 % (0-2.5); Eosinophils % (Auto) 0 % (0-10); Hematocrit 40.4 % (41.0-53.0); Hemoglobin 13.2 g/dL (13.5-16.0); Immature Granulocytes % (Auto) 0 % (0-0); Immature Granulocytes Auto 0.04 Thou/mm3 (0.00-0.00); Lymphocytes % (Auto) 10 % (10-50); Mean Corpuscular HGB Conc 32.7 g/dl (31.0-37.0); Mean Corpuscular Hemoglobin 29.9 pg (25.0-35.0); Mean Corpuscular Volume 91 fL (80-100); Monocytes # (Auto) 0.9 Thou/mm3 (0.0-0.8); Monocytes % (Auto) 9 % (0-12); Neutrophils # (Auto) 8.3 Thou/mm3 (1.8-7.7); Neutrophils % (Auto) 80 % (37-80); Nucleated Red Blood Cell % 0 /100 WBC (0); Platelet Count 267 Thou/mm3 (140-440); RDW Standard Deviation 47.4 fL (35.1-43.9); Red Blood Count 4.42 Miln/mm3 (4.50-5.90); White Blood Count 10.3 Thou/mm3 (3.8-10.6)
[2024-04-23 12:00] VITALS: BP 130/76; PULSE 72; RESP 16; TEMP 36.3; O2SAT 94
--- NOTE | 2024-04-23 13:16 | PD.RESPRO ---
Documentation for date of: 04/23/24 Subjective Subjective Interval history: 04/21/2024: Patient examined at bedside today. No acute overnight events on telemetry. Will continue for pain management as patient tolerated hip left hemiarthroplasty for displaced femoral neck fracture. No cardiac complications. Patient BUN/creatinine 29 and 1.3 today respectively, hemoglobin of 14.5. Will continue to treat pain. 04/22/2024: Patient examined at bedside today. No acute overnight events on telemetry. Says that he is doing good. He was put on soft manage drinks because he was pulling out his Breaux and lines. BUN/creatinine 23 and 1.1, hemoglobin 14, potassium 4.1 and magnesium 2.3. We recommend to do scheduled pain medicine. Patient's blood pressure was in the upper 140s, we recommend also starting DAINA/ARB as patient has history of hypertension but no home medicines. Will need to stay another day because pt needs to be off restraints for more than 24 hours. 04/23/2024: Patient examined at bedside today. No acute overnight events symptomatic. States he is doing well. BUN/creatinine of 26 and 1.1. Magnesium and potassium 2.2 and 4 respectively. He experiencing no pain at this time. Will likely be discharged today on aspirin twice daily. Only complaints at this time Exam Vital Signs Temp Pulse Resp BP Pulse Ox O2 Del Method O2 Flow Rate 97.3 F 72 16 130/76 94 L Room Air 8 04/23/24 12:00 04/23/24 12:00 04/23/24 12:00 04/23/24 12:00 04/23/24 12:00 04/23/24 12:00 04/20/24 20:00 Narrative Exam General: AAOx1, NAD, bangladeshi speaking male HEENT: Moist mucous membranes, conjunctiva clear, EOMI, PERRLA, Cardiovascular: S1, S2, radial pulses +2 bilat, RRR Pulmonary: CTAB bilat no cough, no wheezing GI: No tenderness to light or deep palpitation, no guarding, rigidity, rebound tenderness or distension Extremities: No presence of trace or pitting edema in lower extremities bilaterally, dorsalis pedis pulses +2 bilaterally MSK: Bandage over left hip is dry, skin not ulcerated or erythematous. Neuro: AAOx1 Psych: Cooperative Objective Labs 04/23/24 04:30 04/23/24 04:30 Labs: Laboratory Results - last 24 hr 04/23/24 04:30 WBC 10.3 RBC 4.42 L Hgb 13.2 L Hct 40.4 L MCV 91 MCH 29.9 MCHC 32.7 RDW Std Deviation 47.4 H Plt Count 267 Neut % (Auto) 80 Lymph % (Auto) 10 [place] % (Auto) 9 Eos % (Auto) 0 Baso % (Auto) 0 Neut # (Auto) 8.3 H Lymph # (Auto) 1.0 [place] # (Auto) 0.9 H Eos # (Auto) 0.0 Baso # (Auto) 0.0 Immature Gran # (Auto) 0.04 H Absolute Nucleated RBC 0.00 Immature Gran % 0 Nucleated RBC % 0 Sodium 135 L Potassium 4.0 Chloride 102 Carbon Dioxide 24.0 Anion Gap 9 BUN 26 H Creatinine 1.1 Estim Creat Clear Calc 48.3 L eGFR > 60 BUN/Creatinine Ratio 24 H Glucose 114 H Calculated Osmolality 275 Calcium 9.0 Corrected Calcium 9.2 Phosphorus 2.8 Magnesium 2.2 Total Bilirubin 0.8 AST 52 H ALT 19 Alkaline Phosphatase 122 H D Total Protein 7.3 Albumin 3.8 Globulin 3.5 Albumin/Globulin Ratio 1.1 L Quality Measures Quality Measures VTE prophylaxis Advance care planning discussed with:: patient Assessment & Plan Assessment Current Active Medications: Generic Name Dose Route Start Last Admin Trade Name Freq PRN Reason Stop Dose Admin Acetaminophen 650 mg 04/19/24 13:15 Acetaminophen 325 Mg Tablet PO 05/19/24 13:14 Q8H PRN PAIN OR FEVER > 100.3 Aspirin 81 mg 04/21/24 09:00 04/23/24 08:17 Aspirin Ec 81 Mg Tabec PO 05/21/24 08:59 81 mg BID KALLI Administration Heparin Sodium (Porcine) 5,000 unit 04/21/24 09:00 04/23/24 08:17 Heparin Sod Inj 5000 Unit/Ml Vial SC 05/05/24 08:59 5,000 unit Q12HR KALLI Administration Melatonin 3 mg 04/18/24 21:00 04/20/24 20:43 Melatonin 3 Mg Tablet PO 05/18/24 20:59 3 mg HS PRN Administration INSOMNIA Ondansetron HCl 4 mg 04/18/24 08:12 Ondansetron Inj 2 Mg/Ml Inj 2 Ml IV 05/18/24 08:11 Q6H PRN NAUSEA OR VOMITING Protocol Pantoprazole Sodium 40 mg 04/18/24 09:00 04/23/24 08:17 Pantoprazole 40 Mg Tablet PO 05/18/24 08:59 40 mg QDAY KALLI Administration Polyethylene Glycol 17 gm 04/18/24 09:00 04/23/24 08:17 Polyethylene Glycol 17 Gm Packet PO 05/18/24 08:59 17 gm QDAY KALLI Administration Quetiapine Fumarate 25 mg 04/22/24 21:00 04/22/24 21:53 Quetiapine Fumarate 25 Mg Tablet PO 05/22/24 20:59 25 mg HS KALLI Administration Sennosides 1 tab 04/18/24 08:12 04/21/24 06:17 Senna Tablet PO 05/18/24 08:11 1 tab QDAY PRN Administration constipation Protocol Plan Assessment Harvey is an 78 y/o male with PMHx past medical history of essential hypertension and (dementia?) who is brought in [facility] from [facility] who is admitted for L femoral neck hip fracture that will require surgical intervention. #L femoral neck hip fracture Patient will require cardiac clearance for this surgery Upon reviewing information that we have been using revised cardiac index patient has 0 points calculated with the risk of major cardiac event 3.9% Unsure if patient is on any blood thinners, hemoglobin stable ~14 EKG showed low voltage in precordial leads, NSR, rate 82, no ST changes A1c 5.4, TSH 0.78, and Lipid panel includes total cholesterol 195, LDL 127 Bedside echo shows EF 55-60%, normal LV, some aortic valve calcification. Cardiac clearance approved Coagulation panel normal today has not been given any heparin subcu. Patient tolerated left hemiarthroplasty for displaced femoral neck fracture done by Dr. Rice Will continue with pain management Plan: ? Orthopedic surgery, Dr. Rice, on consult appreciate recs ? ASA twice daily for A/C ? Tylenol 650 mg as needed ? [place] 5 every 4 as needed ? Do not exceed over 3 g of Tylenol within 24 hours. #History of hypertension Unsure if patient is on blood pressure medicines at home none reviewed upon med rec, however has a hx of it. Plan: ? No blood pressure medicine started for patient #?KATIE, resolved #History of dementia No medicines seen upon med rec Plan: ? Avoid sundowning patient Patient seen and care discussed with my attending physician, Dr. Flor Cruz, PGY-1 Attending Provider Attestation/Addendum I have personally seen and examined the patient separately on the above date of service and discussed the plan of care with the resident. I reviewed the resident Dr. Willson consultation progress note and agree with the resident findings and plan in the note above and have also edited the documentation to reflect my findings and plan. Brennan Ray M.D. Interventional Cardiology
--- NOTE | 2024-04-23 14:10 | ESDS_ITS ---
<Statement entered by Alfonzo Lugo MD - 04/23/24 15:46> I saw and examined the patient, and I agree with current management stated by Dr Zeyad MD,PGY1. Plan of care was discussed with the attending physician and resident physician. Disclaimer: Despite multiple revisions, due to the dictation software being used, the document bellow may not be free of grammatical errors including phonetic/typographic errors. However, this does not deter from our commitment to providing health care in the patient's best interest in mind. Dr. Parish MD, PGY 2 Planned Discharge Date 04/23/24 DS: Providers Provider Date of admission: 04/17/24 01:06 Primary care physician: Cm Palmer MD Admitting Provider: Javier Avelar MD Attending Provider on Admission: Aldo Chapman MD Consults: 04/17/24 00:36 Consult to Orthopedic Stat Comment: Consulting Provider: Devin Rice 04/17/24 00:37 Consult to Cardiology Stat Comment: Preop clearance. Patient has a history of HTN Consulting Provider: Brennan Ray 04/17/24 15:10 Referral Physical Therapy Routine Comment: Physician Instructions: 04/21/24 08:41 Referral Physical Therapy Routine Comment: Physician Instructions: Attending Provider on DC: Krissy Jeffers MD Discharging Provider: Krissy Jeffers MD DS: Diagnosis Problem List Completed Was Problem List Reviewed/Reconciled?: Yes Hospital Course Hospital Course Hospital course: Summary: Patient is a 78-year-old male with a limited past medical history with dementia (only melatonin was started), history hypertension (no medication antihypertensive medication), generalized weakness, and admitted for left hip fracture s/p hemiarthroplasty. ER Course: ED course: BP 117/63, pulse 87, RR 20, temp 98.8 F, SpO2 91% on room air. Labs significant for Hb 14.6, HCT 44.2, BUN 33, CR 1.4, lipase 62. Chest x-ray significant for unfolding of the aorta, poor inspiratory effort, no obvious signs of consolidation, pulmonary edema or pleural effusion. Hip x-ray significant for left acute displaced femoral neck fracture. EKG significant for sinus rhythm, rate 92, incomplete RBBB. No acute ST changes. Patient received 1 L normal saline IV fluid bolus Hospital Patient was started on pain management for complex left hip fracture and orthopedics was consulted. Patient underwent left hip hemiarthroplast on 04/08. Physical therapy consulted after surgery, recommended continued physical therapy with SNF. Pateint will return to [facility]. Aspirin 81 mg PO twice a day started after hemiarthroplast, please follow up with Dr. Rice for stop date. Seroquel started on pained overnight for agitation, likely combination of dementia and pain after surgery. Instructions: -Aspirin 81 mg for hemiarthroplasty, please follow up with surgeon, Dr. Rice, to determine stop day -hydrocodone=acetaminophen 5-325 mg twice a day as needed. -Please continue quetiapine 25 mg for dementia and agitation -please continue all other medication as needed -Please follow up with your primary care provider within one week of discharge -If your symptoms worsen,please seek immediate medical attention and return to your nearest emergency room -If you do not have a primary care provider, you may follow up at the community healthcare system at [address] [place] [address] [address], [place] [address], Disposition: SNF #Ground-level fall #Acute left hip fracture s/p hemiarthroplasty #Acute Kidney Injury, likely prerenal, improved #Chronic Essential hypertension, stable #Dementia - The patient's plan was discussed with attending Dr. Chapman and senior residents Dr. Parish Jeffers MD PGY1 Internal Medicine Time Spent with Patient Time attestation: Total time spent providing and/or coordinating discharge services: at least 35 minutes of care and coordination Exam Vital Signs Temp Pulse Resp BP Pulse Ox O2 Del Method O2 Flow Rate 97.3 F 72 16 130/76 94 L Room Air 8 04/23/24 12:00 04/23/24 12:04/23/24 12:04/23/24 12:04/23/24 12:04/23/24 12:04/20/24 20:00 Narrative Exam General Appearance: Alert & Oriented X0, well-nourished male who is lying in bed in no acute distress but at baseline altered. HEENT: Skull symmetrical and atraumatic. Conjunctivae pin and moist. Pupils equal, round, reactive to light and accommodation (PERRL). External ear without lesion or discharge. Straight, nares patient, mucosa pink, no discharge. Cardio: Normal Rate and Rhythm with S1 and S2 heart sounds. No murmurs or extra heart sounds auscultated. No bruits on carotid auscultation. No peripheral edema or cyanosis. Lungs: Symmetric with good expansion. Chest and back non-tender. Breath sounds vesicular without crackles, wheezing or rhonchi Abdomen: Non-tender, Non-distended, Normal Reactive Bowel Sounds Neuro: Yes Alert, Yes cooperative, NO oriented to person, No place, and No time. Speech clear. CN grossly intact. Upper motor strength 5/5 and Lower motor strength 4/5. Sensation intact. Discharge Plan Plan Patient Disposition: Xfer Skilled Nsg Fac (SNF) Care Plan Goals: Instructions: -Aspirin 81 mg for hemiarthroplasty, please follow up with surgeon to determine stop day -hydrocodone=acetaminophen 5-325 mg twice a day as needed. -Please continue quetiapine 25 mg for dementia and agitation -please continue all other medication as needed -Please follow up with your primary care provider within one week of discharge -If your symptoms worsen,please seek immediate medical attention and return to your nearest emergency room -If you do not have a primary care provider, you may follow up at the community healthcare system at [facility] [address], [place] [address], Disposition: SNF Prescriptions/Referrals Prescriptions/Med Rec: New polyethylene glycol 3350 [ClearLax] 17 gram/dose powder 4 g PO QDAY PRN (Reason: constipation) Qty: 119 0RF aspirin [Ecotrin Low Strength] 81 mg Tablet,Delayed Release (Dr/Ec) 81 mg PO BID 35 Days Qty: 70 0RF pantoprazole 40 mg Tablet,Delayed Release (Dr/Ec) 40 mg PO QDAY 14 Days Qty: 14 0RF hydrocodone-acetaminophen 5-325 mg Tablet 1 tab PO BID MDD 2 Qty: 10 0RF quetiapine 25 mg Tablet 25 mg PO HS 30 Days Qty: 30 0RF Continued ondansetron 4 mg Tablet,Disintegrating 4 mg PO Q6H PRN (Reason: Nausea) multivitamin,ym-uhin-Sp-FA-min 27-0.4 mg Tablet 1 tab PO QDAY melatonin 5 mg Tablet 5 mg PO HS PRN (Reason: Insomnia) bisacodyl [Dulcolax (bisacodyl)] 10 mg Suppository 10 mg OR Q72H PRN (Reason: Constipation) Referrals: Devin Rice MD [Physician] - Cm Palmer MD [Primary Care Provider] - Patient/Caregiver Discharge Instructions Education Materials: Surgery Anesthesia After, Preventing Surgical Site Infections Print Language: Tajik Stand Alone Forms: Sarah Award Info., Patient Portal Info Letter Discharge Order Discharge Orders: Discharge (Routine); Ordered 04/23/24 Ordered By: Alfonzo Lugo Quality Discharge Quality Measures VTE prophylaxis MD Attestestation MD Attestation I attest that I was physically present for the evaluation, physical examination, lab and imaging review of the patient with the residents. I discussed the case with the residents and agree with the findings and discharge plan as documented above. Patient appears comfortable at bedside.? Plan for discharge today.? Recommended to continue physical therapy, follow-up with PCP and orthopedics in 1 to 2 weeks. Aldo Chapman MD
[2024-04-23 15:28] VITALS: BP 127/75; PULSE 84; RESP 16; TEMP 36.1; O2SAT 95
--- NOTE | 2024-04-23 15:36 | PC.NURSE ---
CALLED [facility] AND GAVE REPORT TO NURSE. NOTIFIED TRANSPORT WAS SET FOR 1530, SO IT COULD BE ANY TIME NOW.
[2024-04-23 16:00] VITALS: BP 127/75; PULSE 84; RESP 16; TEMP 36.1; O2SAT 95
== END 2024-04-23 16:30 | disposition skilled nursing facility (03) | DRG 522 ==
LOC: SERX 04-17 00:54 → SERHOLD 04-17 01:23 → S3NX 04-17 16:07
PROVIDERS: Orthopaedic Surgery Adult Reconstructive Orthopaedic Surgery; Student in an Organized Health Care Education/Training Program; Admitting Provider Internal Medicine; Emergency Provider Emergency Medicine; PCP Family Medicine; Visit Provider Student in an Organized Health Care Education/Training Program
PROC: 0SRR0JZ Replacement of Right Hip Joint, Femoral Surface with Synthetic Substitute, Open Approach (ICD-10-PCS; CPT 27125; principal; 2024-04-20 15:30)
DX: S72.002A Fracture of unspecified part of neck of left femur, initial encounter for closed fracture (principal); N17.9 Acute kidney failure, unspecified; F03.911 Unspecified dementia, unspecified severity, with agitation; I10 Essential (primary) hypertension; I45.10 Unspecified right bundle-branch block; Z78.1 Physical restraint status; Z79.899 Other long term (current) drug therapy; Z87.891 Personal history of nicotine dependence; W18.30XA Fall on same level, unspecified, initial encounter; Y92.129 Unspecified place in nursing home as the place of occurrence of the external cause
CPT/HCPCS: 36415; 71045; 72170; 73501; 73522; 80048; 80053; 80061; 83036; 83690; 83735; 83880; 84100; 84439; 84443; 84484; 85025; 85610; 85730; 87081; 93005; 93306; 94664; 96360; 96372; 97162; 99285; A4217; A4649; C1776; J0689; J0690; J1643; J2270; J2371; J2704; J3010; J3490; J7030; J7040; J7120; J7999; A9270

== ENCOUNTER 2024-05-11 11:34 | Inpatient (IN) | payer MEDICARE, MEDICAID, SELFPAY ==
[2024-05-11 11:39] VITALS: BP 120/67; PULSE 79; RESP 19; TEMP 36.6; O2SAT 92
--- NOTE | 2024-05-11 12:26 | XR_ITS ---
Examination: CT brain head without contrast. 2-D sagittal coronal reconstructions Date and time of exam:May 11, 2024 1250 hours INDICATIONS: Ground-level fall today with injury to the head, head pain CTDI: vol (mGy):50 DLP: (mGycm):1082 Technique: Multiple CT axial sections of the brain have been obtained, 5 mm slice thickness. Contrast has not been administered. 2-D sagittal, coronal reconstructions have been obtained Low dose protocols were performed. One or more of the following dose reduction techniques were used; automated exposure control, adjustment of the mA and/or KV according to patient size, use of iterative reconstruction technique. Findings: Mild to moderate ventricular enlargement. Intra-axial or extra-axial hemorrhage density is not seen. No mass effect or midline shift Basal cisterns are not remarkable. Fourth ventricle is midline. Cranial vault intact. Impression: Negative for acute hemorrhage, mass effect or midline shift
--- NOTE | 2024-05-11 12:26 | XR_ITS ---
Examination:Left hip AP, lateral, AP pelvis 3 views Technique: Hip AP lateral, AP pelvis, 3 views Exam date and time:May 11, 2024 1229 hours INDICATIONS: Patient fell today, hip pain FINDINGS: Left hip fracture through the intertrochanteric region left hip On the AP view at least 10 mm offset at the fracture site No dislocation Right hip bones of the pelvis intact IMPRESSION: Acute intertrochanteric fracture left hip.
--- NOTE | 2024-05-11 12:28 | PD.EDFALL ---
ED Fall Injury RME/HPI General Chief Complaint: Extremity Injury, Lower Stated Complaint: LEFT LEG PAIN POST FALL NLOC Time Seen by Provider: 05/11/24 11:53 Arrival date/time: 05/11/24 11:34 RME / HPI RME / HPI Narrative: 78 year old male with history of dementia, hypertension, s/p left hip hemiarthroplasty performed 04/20/[address] Rice, hypothyroidism presents to the ED BIB from [facility] for evaluation of left leg pain after fall today. Per medics, [place] staff reported the patient was found on the floor and fall was unwitnessed. Noted while assisting him up, the patient was complaining of pain to his left hip, prompting ED visit. While in the ED patient complaints of left hip gallego. No other injuries reported. Related Data Home Medications ?Medication ?Instructions ?Recorded ?Confirmed melatonin 5 mg tablet 5 mg PO HS PRN Insomnia 04/17/24 04/17/24 multivit,tx with iron 27 1 tab PO QDAY 04/17/24 04/17/24 kc-rxcqvaz-sqbcl acid 0.4 mg-minerals tablet ondansetron 4 mg disintegrating 4 mg PO Q6H PRN Nausea 04/17/24 04/17/24 tablet bisacodyl 10 mg rectal suppository 10 mg [place] Q72H PRN Constipation 04/18/24 04/18/24 (Dulcolax (bisacodyl)) Previous Rx's ?Medication ?Instructions ?Recorded aspirin 81 mg tablet,delayed 81 mg PO BID 35 days #70 tabs 04/21/24 release (Ecotrin Low Strength) polyethylene glycol 3350 17 4 g PO QDAY PRN constipation #119 04/21/24 gram/dose oral powder (ClearLax) grams hydrocodone 5 mg-acetaminophen 325 1 tab PO BID #10 tabs 04/22/24 mg tablet quetiapine 25 mg tablet 25 mg PO HS 30 days #30 tabs 04/23/24 Allergies Allergy/AdvReac Type Severity Reaction Status Date / Time No Known Allergies Allergy Verified 04/17/24 00:02 Review of Systems Review of Systems Systems Reviewed: All systems reviewed, normal except as documented Past Medical History Past Medical History NEUROLOGIC: Positive Dementia CARDIAC: Positive Cardiac Disorders, Hypertension and Hypotension PSYCHO/SOCIAL: Positive Anxiety OTHER HISTORY: Positive Falls Social History SMOKING STATUS: Unknown if ever smoked ED Exam Narrative Physical exam: GENERAL APPEARANCE: Awake, no obvious distress, nontoxic appearing HEENT: NC, AT. MMM. EOMI, clear conjunctiva, oropharynx clear. NECK: Supple without lymphadenopathy. No stiffness or restricted ROM. HEART: Normal rate and regular rhythm, normal S1/S1, no m/r/g LUNGS: CTAB, moving air well. No crackles or wheezes are heard. ABDOMEN: Soft, nontender, nondistended with good bowel sounds heard. BACK: No midline C/T/L spine pain or deformity, No CVAT, no obvious deformity. EXTREMITIES: Lateral surgical incision on the left hip that is c/d/i, padded hemorrhagic pressure ulcer measuring 6cm to the left heel. Without cyanosis, clubbing or edema. MUSCULOSKELETAL: Internal and external rotation of the left extremity illicit no hip pain. FROM of all major joints, no chest tenderness NEUROLOGICAL: Grossly nonfocal. Alert and oriented, moving all 4 extremities. CN not formally tested but appear grossly intact. Skin: Warm and dry without any rash. Course Quality Measures none Orders Category Date Time Status COVID-19 Screening Questionnaire NOW Care 05/11/24 15:18 Active Decision to Admit X1 Care 05/11/24 15:17 Completed EKG (ED ONLY) *Do not use* NOW Care 05/11/24 13:48 Completed NPO NOW Care 05/11/24 13:48 Active Consult to Orthopedic Stat Cons 05/11/24 14:11 Ordered Diet NPO (NOW) Diet 05/11/24 13:[address] head/brain wo con Stat Exams 05/11/24 12:26 Completed EKG (ED Only) Stat Exams 05/11/24 13:48 Draft XR chest 1V Stat Exams 05/11/24 13:48 Completed XR hip LT w pelvis 2-3V Stat Exams 05/11/24 12:26 Completed CBC Stat Lab 05/11/24 14:51 Completed CMP [Comprehensive Metabolic Panel] Stat Lab 05/11/24 14:51 Completed Partial Thromboplastin Time Stat Lab 05/11/24 14:51 Completed Prothrombin Time with INR Stat Lab 05/11/24 14:51 Completed HYDROmorphone INJ [Dilaudid Inj] Med 05/11/24 16:33 Discontinued 1 mg IVP X1 ONE Vital Signs Vital signs: Vital Signs Temperature 97.8 F 05/11/24 11:39 Pulse Rate 79 05/11/24 11:39 Respiratory Rate 19 05/11/24 11:39 Blood Pressure 120/67 05/11/24 11:39 Pulse Oximetry (%) 92 L 05/11/24 11:39 Oxygen Delivery Method Room Air 05/11/24 11:39 Pulse ox is 92% on room air which is low. Fall MDM Narrative MDM Narrative:: Paula Solis am scribing for and in the presence of Dr. Benítez. Patient data External records reviewed:: [facility] previous records (I reviewed admission from 04/17/2024 through 04/23/2024), EMS form and Long Term records (I reviewed pmhx from [facility] ) Clinical information provided by:: patient and EMS Social determinants that could affect healthcare access:: housing (SNF resident) Patient has the following chronic illnesses:: dementia, hypertension, s/p left hip hemiarthroplasty performed 04/20/[address] Rice, hypothyroidism How is presenting disease/condition affected by chronic disease/condition?: exacerbated by Evaluation data The following diagnostics were reviewed and interpreted by me:: lab results, radiology exam(s) and EKG tracing(s) (Sinus tachycardia, rate 111, left axis deviation, no acute ST or T-wave changes, no STEMI ) Lab and/or radiology exams considered but not ordered:: None Interpretation Summary: Ordering Physician: Guanaco Benítez MD Date of Service: 05/11/24 Procedure(s): CT head/brain wo con Accession Number(s): [id number] cc: Guanaco Benítez MD; Tad Ragland MD~ Examination: CT brain head without contrast. 2-D sagittal coronal reconstructions Date and time of exam:May 11, 2024 1250 hours INDICATIONS: Ground-level fall today with injury to the head, head pain CTDI: vol (mGy):50 DLP: (mGycm):1082 Technique: Multiple CT axial sections of the brain have been obtained, 5 mm slice thickness. Contrast has not been administered. 2-D sagittal, coronal reconstructions have been obtained Low dose protocols were performed. One or more of the following dose reduction techniques were used; automated exposure control, adjustment of the mA and/or KV according to patient size, use of iterative reconstruction technique. Findings: Mild to moderate ventricular enlargement. Intra-axial or extra-axial hemorrhage density is not seen. No mass effect or midline shift Basal cisterns are not remarkable. Fourth ventricle is midline. Cranial vault intact. Impression: Negative for acute hemorrhage, mass effect or midline shift Dictated By:Tad Ragland MD Signed By:<Electronically signed by Tad Ragland MD in OV>05/11/24 1304 Ordering Physician: Guanaco Benítez MD Date of Service: 05/11/24 Procedure(s): XR hip LT w pelvis 2-3V Accession Number(s): [id number] cc: Guanaco Benítez MD; Tad Ragland MD~ Examination:Left hip AP, lateral, AP pelvis 3 views Technique: Hip AP lateral, AP pelvis, 3 views Exam date and time:May 11, 2024 1229 hours INDICATIONS: Patient fell today, hip pain FINDINGS: Left hip fracture through the intertrochanteric region left hip On the AP view at least 10 mm offset at the fracture site No dislocation Right hip bones of the pelvis intact IMPRESSION: Acute intertrochanteric fracture left hip. Dictated By:Tad Ragland MD Signed By:<Electronically signed by Tad Ragland MD in OV>05/11/24 1305 Ordering Physician: Guanaco Benítez MD Date of Service: 05/11/24 Procedure(s): XR chest 1V Accession Number(s): [id number] cc: Guanaco Benítez MD; Tad Ragland MD; NO PRIMARY/FAMILY,PHYSICIAN~ Examination: AP chest single view Technique one AP portable semiupright chest single view Exam date and time: May 11, 2024 1439 hours INDICATIONS: Patient found down unconscious today. FINDINGS: Normal heart size Ectatic thoracic aorta Mild vascular congestion. No lobar pneumonia Prominent osteopenia IMPRESSION: No lobar pneumonia or pulmonary edema Dictated By:Tad Ragland MD Signed By:<Electronically signed by Tad Ragland MD in OV>05/11/24 1538 Medications / Prescriptions Medications or Prescriptions considered but not ordered:: None Medication administrations:: Medication Administration History Acetaminophen (Acetaminophen 500 Mg Tablet) 1,000 mg PO Q6H PRN PRN Reason: Fever >100.0 or pain 1-3 Stop: 06/10/24 17:02 Hydrocodone Bitart/Acetaminophen (Hydrocodone/Apap 5/325 Tablet) 1 tab PO Q4HR PRN PRN Reason: PAIN SCALE 4-6 (Moderate Stop: 05/16/24 17:02 Dextrose/Sodium Chloride (D5-Ns) 1,000 mls @ 70 mls/hr IV .[id number] [facility] Stop: 06/11/24 08:44 Ondansetron HCl (Ondansetron Inj 2 Mg/Ml Inj 2 Ml) 4 mg IV Q6H PRN; Protocol PRN Reason: NAUSEA OR VOMITING Stop: 06/10/24 17:02 Quetiapine Fumarate (Quetiapine Fumarate 25 Mg Tablet) 25 mg PO HS [facility] Stop: 06/10/24 20:59 Last Admin: 05/11/24 21:53 Dose: Not Given Documented By: LIBAN Non-Admin Reason: NPO Sennosides (Senna Tablet) 1 tab PO QDAY PRN; Protocol PRN Reason: constipation Stop: 06/10/24 17:08 Discontinued Medications Acetaminophen (Acetaminophen 325 Mg Tablet) 650 mg PO Q6H PRN PRN Reason: Fever >101.5 or pain 1-3 Stop: 06/10/24 17:02 Hydromorphone HCl (Hydromorphone Inj 2 Mg/Ml Vial) 1 mg IVP X1 ONE Stop: 05/11/24 16:34 Last Admin: 05/11/24 17:12 Dose: 1 mg Documented By: AL Sodium Chloride (Ns) 1,000 mls @ 999 mls/hr IV .Q1H1M ONE Stop: 05/12/24 09:36 See above Consultations Consultation(s) initiated? (list below): Yes Consultation #1 (Physician, Specialty, Details): I spoke with ortho Dr. Rice and sent the hip/pelvis xray's. States he will review and call back. Time: 13:15 Consultation #2 (Physician, Specialty, Details): Ortho Dr. Rice states he will take the patient to surgery some time today. Time: 13:30 Diagnosis Fall Differential Diagnosis: syncope, compression fracture and other (hip dislocation, hip fracture ) Most likely diagnosis given after review of the tests above:: Periporsthetic fracture, left hip Admission Indicated Admission indicated?: indicated Admission Request Was there a request for admission?: Yes Admission Attestation Admission request attestation: Discussed case with [] from Hospitalist service regarding admission. Discussed patients ED course, exam findings, labs, and radiology results. The Hospitalist [agrees,declines] to accept the patient for admission. Disposition Plan Disposition Plan: Admit Discharge Plan Plan Patient Disposition: Admit Acute Care w/in Hospital Problem List Clinical Impression: Periprosthetic fracture around internal prosthetic left hip joint
[2024-05-11 12:29] VITALS: PULSE 80; RESP 20; O2SAT 94; BMI 25.8
--- NOTE | 2024-05-11 13:48 | EKG_ITS ---
[facility] Test Date: 2024-05-11 Pat Name: LILLY WHITE Department: Room: - Gender: Male [employer] In[employer]: : 1945 Requested By: Guanaco Benítez Order Number: [id number] Reading MD: Guanaco Benítez Measurements Intervals [place] Rate: 111 P: 31 MD: 192 QRS: -43 QRSD: 82 T: 36 QT: 321 QTc: 437 Interpretive Statements SINUS TACHYCARDIA MARKED LEFT AXIS DEVIATION [QRS AXIS < -30] ANTERIOR MYOCARDIAL INFARCTION , OF INDETERMINATE AGE [40+ ms Q WAVE AND/OR ST/T ABNORMALITY IN V3/V4] Compared to ECG 04/17/2024 00:44:00 Left-axis deviation now present Myocardial infarct finding now present Sinus rhythm no longer present /store/S0/[id number]/ecg/[id number].pdf
--- NOTE | 2024-05-11 13:48 | XR_ITS ---
Examination: AP chest single view Technique one AP portable semiupright chest single view Exam date and time: May 11, 2024 1439 hours INDICATIONS: Patient found down unconscious today. FINDINGS: Normal heart size Ectatic thoracic aorta Mild vascular congestion. No lobar pneumonia Prominent osteopenia IMPRESSION: No lobar pneumonia or pulmonary edema
[2024-05-11 14:22] VITALS: BP 120/91; PULSE 116; RESP 21; TEMP 36.4; O2SAT 97
[2024-05-11 15:12] LABS: Basophils # (Auto) 0.1 Thou/mm3 (0.0-0.2); Basophils % (Auto) 0 % (0-2.5); Eosinophils % (Auto) 0 % (0-10); Hematocrit 42.5 % (41.0-53.0); Hemoglobin 13.8 g/dL (13.5-16.0); Immature Granulocytes % (Auto) 1 % (0-0); Immature Granulocytes Auto 0.12 Thou/mm3 (0.00-0.00); Lymphocytes # (Auto) 1.3 Thou/mm3 (1.0-4.8); Lymphocytes % (Auto) 8 % (10-50); Mean Corpuscular HGB Conc 32.5 g/dl (31.0-37.0); Mean Corpuscular Hemoglobin 29.2 pg (25.0-35.0); Mean Corpuscular Volume 90 fL (80-100); Monocytes # (Auto) 0.9 Thou/mm3 (0.0-0.8); Monocytes % (Auto) 5 % (0-12); Neutrophils # (Auto) 15.2 Thou/mm3 (1.8-7.7); Neutrophils % (Auto) 86 % (37-80); Nucleated Red Blood Cell % 0 /100 WBC (0); Platelet Count 347 Thou/mm3 (140-440); RDW Standard Deviation 45.8 fL (35.1-43.9); Red Blood Count 4.72 Miln/mm3 (4.50-5.90); White Blood Count 17.6 Thou/mm3 (3.8-10.6)
[2024-05-11 15:35] LABS: INR 1.1 (0.9-1.3); Partial Thromboplastin Time 25.6 Seconds (22.0-36.0); Prothrombin Time 11.8 Seconds (9.0-12.2)
[2024-05-11 15:36] LABS: Alanine Aminotransferase 18 U/L (10-49); Alkaline Phosphatase 157 U/L (46-116); Anion Gap 10 (7-16); Aspartate Amino Transferase 23 U/L (0-34); BUN/Creatinine Ratio 20 Ratio (12-20); Bilirubin,Total 0.5 mg/dL (0.3-1.2); Blood Urea Nitrogen 22 mg/dL (9-23); Calcium 9.4 mg/dL (8.3-10.6); Calcium (Corrected) 9.4 mg/dL (8.5-10.1); Carbon Dioxide 27.3 mMol/L (20.0-31.0); Chloride 99 mMol/L (98-107); Creatinine (Component) 1.1 mg/dL (0.6-1.3); Estimated Creatinine Clearance 51.8 mL/min (>60); Globulin 4.1 gm/dL (2.3-3.5); Glucose 154 mg/dL (74-106); Osmolality,Calculated 278 (275-295); Potassium 4.3 mMol/L (3.4-5.1); Sodium 136 mMol/L (136-145); Total Protein 8.1 gm/dL (5.7-8.2); eGFR > 60 See Note
[2024-05-11 16:25] VITALS: BP 124/87; PULSE 121; RESP 23; TEMP 36.7; O2SAT 97
--- NOTE | 2024-05-11 16:26 | PC.NURSE ---
PATIENT STATES PAIN 10/10. INFORMED PROVIDER AND RECEIVED VERBAL ORDER FOR 0.5 MG HYDROMORPHONE IV.
[2024-05-11] MEDS: HYDROmorphone INJ 2 MG/ML VIAL 1 MG IVP (17:12)
[2024-05-11 18:31] VITALS: BP 100/76; PULSE 87; RESP 19; TEMP 37.2; O2SAT 95
[2024-05-11 18:35] VITALS: BP 101/82; PULSE 122; RESP 19; TEMP 37.2; O2SAT 92
--- NOTE | 2024-05-11 18:39 | ESHP_ITS ---
<Statement entered by Jose Reid MD - 05/19/24 11:49> I reviewed above note and agree with findings and plans. I have also personally examined the patient with medicine team and went over assessment and plan with medical team including training intern and resident physician. Documentation for date of: 05/11/24 HPI History of Present Illness History of present illness: HPI is limited as patient has poor historian and possibly has dementia Harvey is a 78 y/o male with PMHx essential hypertension, possible dementia, status post left hip hemiarthroplasty in April [id number] who is coming in for an evaluation for a ground-level fall at his [facility] facility. Patient is a poor historian and HPI is limited as patient denies having fell and does not know why he is in the hospital, however it does say he has left hip pain. He was found to be rolled over off the bed at his nursing facility. When asked about this, he denies having fell. He says that he is having some left hip pain. He denies having surgery 3 weeks ago in which she had left hip hemiarthroplasty [address] Rice. He says that he has not broken anything and that he was on a horse 2 weeks ago which is the same timeframe in which she was supposed to be in the nursing facility. He received cardiac clearance previously for surgery as well. He was discharged on aspirin 81 twice daily. No other complaints at this time. ED course: He came to the ED afebrile blood pressure 120 systolic, respiratory rate 15, saturation 92% on room air, heart rate of 76. He was worked up and was found to have a white count of 17.6, hemoglobin of 13.8, coagulation panel negative, sodium of 136, potassium 4.3, BUN/creatinine of 22 and 1.1 respectively, glucose of 154, calcium of 9.4, AST ALT 23 and 18 respectively, T. bili of 0.5. EKG was done and showed sinus tachycardia. Hip pelvis x-ray showed acute intratrochanteric fracture of the left hip. Head CT was negative for any acute hemorrhage or mass effect. Chest x-ray showed no pneumonia or pulmonary edema. Ortho was consulted who recommended admission for possible operation tonight. Medicine was consulted and patient admitted to the floors. Medical history: As above Surgeries: Left hip hemiarthroplasty April 2024 Medicines: Acetaminophen 650, [place] 08/08/2024, Zofran, senna, melatonin, milk of mag, Fleet enema, Dulcolax, MiraLAX Allergies No known allergies Family history: Unknown Social history: Coming from [facility] Review of Systems Review of Systems Narrative Review of Systems: ROS is limited as patient is having symptoms and is poor historian Exam Vital Signs Temp Pulse Resp BP Pulse Ox O2 Del Method 98.9 F 122 H 19 101/82 92 L Room Air 05/11/24 18:35 05/11/24 18:35 05/11/24 18:35 05/11/24 18:35 05/11/24 18:35 05/11/24 18:35 Narrative Exam General: AAOx1, NAD, pashto speaking male HEENT: Moist mucous membranes, conjunctiva clear, EOMI, PERRLA, Cardiovascular: S1, S2, radial pulses +2 bilat, RRR Pulmonary: CTAB bilat no cough, no wheezing GI: No tenderness to light or deep palpitation, no guarding, rigidity, rebound tenderness or distension Extremities: No presence of trace or pitting edema in lower extremities bilaterally, dorsalis pedis pulses +2 bilaterally MSK: Patient appears to have some bandage over left hip, it is tender to palpation no obvious purpura at this time Neuro: AAOx1 Psych: Cooperative Results: Labs 05/12/24 04:49 05/12/24 11:40 Labs: Short CBC 05/11/24 Range/Units 14:51 WBC 17.6 H (3.8-10.6) Thou/mm3 Hgb 13.8 (13.5-16.0) g/dL Hct 42.5 (41.0-53.0) % Plt Count 347 D (140-440) Thou/mm3 BMP 05/11/24 14:51 Sodium 136 Potassium 4.3 Chloride 99 Carbon Dioxide 27.3 BUN 22 Creatinine 1.1 Glucose 154 H Calcium 9.4 Liver Function 05/11/24 Range/Units 14:51 Total Bilirubin 0.5 (0.3-1.2) mg/dL AST 23 (0-34) U/L ALT 18 (10-49) U/L Alkaline Phosphatase 157 H (46-116) U/L Albumin 4.0 (3.4-4.8) gm/dL Quality Measures Quality Measures none Advance care planning discussed with:: patient Medications Home Medications and Allergies Home Medications ?Medication ?Instructions ?Recorded ?Confirmed ?Type melatonin 5 mg tablet 5 mg PO HS PRN Insomnia 04/0804/17/24 History multivit,tx with iron 27 1 tab PO QDAY 04/17/2404/17 History tr-rpqjwpa-beguc acid 0.4 mg-minerals tablet ondansetron 4 mg disintegrating 4 mg PO Q6H PRN Nausea 04/17/24 04/17/24 History tablet bisacodyl 10 mg rectal suppository 10 mg CO Q72H PRN C onstipation 04/18/24 04/18/24 History (Dulcolax (bisacodyl)) Allergies Allergy/AdvReac Type Severity Reaction Status Date / Time No Known Allergies Allergy Verified 04/17/24 00:02 Visit Medications Acetaminophen (Acetaminophen 325 Mg Tablet) 650 mg PO Q6H PRN PRN Reason: Fever >101.5 or pain 1-3 Stop: 06/10/24 17:02 Hydrocodone Bitart/Acetaminophen (Hydrocodone/Apap 5/325 Tablet) 1 tab PO Q4HR PRN PRN Reason: PAIN SCALE 4-6 (Moderate Stop: 05/16/24 17:02 Ondansetron HCl (Ondansetron Inj 2 Mg/Ml Inj 2 Ml) 4 mg IV Q6H PRN; Protocol PRN Reason: NAUSEA OR VOMITING Stop: 06/10/24 17:02 Quetiapine Fumarate (Quetiapine Fumarate 25 Mg Tablet) 25 mg PO HS [facility] Stop: 06/10/24 20:59 Sennosides (Senna Tablet) 1 tab PO QDAY PRN; Protocol PRN Reason: constipation Stop: 06/10/24 17:08 Discontinued Medications Hydromorphone HCl (Hydromorphone Inj 2 Mg/Ml Vial) 1 mg IVP X1 ONE Stop: 05/11/24 16:34 Last Admin: 05/11/24 17:12 Dose: 1 mg Assessment & Plan Plan Assessment Harvey is an 78 y/o male with PMHx past medical history of essential hypertension and (dementia?) who is brought in [facility] from [facility] who is admitted for L femoral neck hip fracture that will require surgical intervention. #Left acute intertrochanteric hip fracture status post mechanical fall #L femoral neck hip fracture status post left hip hemiarthroplasty Patient was recently operated on by Dr. Rice on April 18, 2024 and got the left hip hemiarthroplasty Pt was given ASA 81 BID upon d/c for A/C A1c 5.4, TSH 0.78, and Lipid panel includes total cholesterol 195, LDL 127 on previous admission Bedside echo shows EF 55-60%, normal LV, some aortic valve calcification previously and was granted cardiac clearance Plan: ? Orthopedic surgery, Dr. Rice, on consult appreciate recs ? L hip surgical revision to be done today by Dr. Rice - Aurelio 5-10 q4h PRN #History of hypertension Unsure if patient is on blood pressure medicines at home none reviewed upon med rec Plan: ? Will hold on resuming any hypertensives at this point #Dementia Primary team started Seroquel upon last admission Will consider adjusting at some point Plan: - Resumed home Seroquel 25 mg PO HS Patient seen and care discussed with my attending physician, Dr. Reid and my senior resident, Dr. Jana Cruz, PGY-1 L Patient is a 78 y/o male BIBA from [facility] who is admitted for LT femoral neck fracture. Patient had a recent LT hip yuliya-arthroplasty performed on 05/04/[address] Rice. Given X ray findings showing displaced hip fracture, patient will need surgical intervention. Orthopedics Dr Rice is consulted for further evaluation to plan intervention. Patient is NPO at this time in anticipation of surgery. Will continue all home medications. and hold off on chemical anticoagulation. Patient examined and case discussed with the team including attending physician. Note reviewed, I agree with the care plan as documented. - Anand Bates MD, PGY 2
--- NOTE | 2024-05-11 19:22 | PC.NURSE ---
Report called and given to Lucy ANAYA.
[2024-05-11 20:31] VITALS: BMI 20.5
[2024-05-12] VITALS (8 sets, daily range): BP systolic 95–122; BP diastolic 73–81; PULSE 70–135; RESP 16–92; TEMP 36.2–36.7; O2SAT 90–93
[2024-05-12 06:20] LABS: Basophils # (Auto) 0.1 Thou/mm3 (0.0-0.2); Basophils % (Auto) 0 % (0-2.5); Eosinophils % (Auto) 0 % (0-10); Hematocrit 40.5 % (41.0-53.0); Hemoglobin 13.4 g/dL (13.5-16.0); Immature Granulocytes % (Auto) 1 % (0-0); Immature Granulocytes Auto 0.08 Thou/mm3 (0.00-0.00); Lymphocytes # (Auto) 2.1 Thou/mm3 (1.0-4.8); Lymphocytes % (Auto) 13 % (10-50); Mean Corpuscular HGB Conc 33.1 g/dl (31.0-37.0); Mean Corpuscular Hemoglobin 29.6 pg (25.0-35.0); Mean Corpuscular Volume 89 fL (80-100); Monocytes # (Auto) 1.2 Thou/mm3 (0.0-0.8); Monocytes % (Auto) 7 % (0-12); Neutrophils # (Auto) 12.6 Thou/mm3 (1.8-7.7); Neutrophils % (Auto) 79 % (37-80); Nucleated Red Blood Cell % 0 /100 WBC (0); Platelet Count 373 Thou/mm3 (140-440); RDW Standard Deviation 46.5 fL (35.1-43.9); Red Blood Count 4.53 Miln/mm3 (4.50-5.90); White Blood Count 15.9 Thou/mm3 (3.8-10.6)
[2024-05-12 06:36] LABS: INR 1.1 (0.9-1.3); Partial Thromboplastin Time 27.1 Seconds (22.0-36.0); Prothrombin Time 11.9 Seconds (9.0-12.2)
[2024-05-12 06:42] LABS: Alanine Aminotransferase 17 U/L (10-49); Albumin, Serum 4.1 gm/dL (3.4-4.8); Alkaline Phosphatase 157 U/L (46-116); Anion Gap 11 (7-16); Aspartate Amino Transferase 23 U/L (0-34); BUN/Creatinine Ratio 20 Ratio (12-20); Bilirubin,Total 0.7 mg/dL (0.3-1.2); Blood Urea Nitrogen 30 mg/dL (9-23); Calcium 9.9 mg/dL (8.3-10.6); Calcium (Corrected) 9.9 mg/dL (8.5-10.1); Carbon Dioxide 25.9 mMol/L (20.0-31.0); Chloride 100 mMol/L (98-107); Creatinine (Component) 1.5 mg/dL (0.6-1.3); Globulin 4.2 gm/dL (2.3-3.5); Glucose 117 mg/dL (74-106); Magnesium 2.2 mg/dL (1.6-2.6); Osmolality,Calculated 281 (275-295); Potassium 5.1 mMol/L (3.4-5.1); Sodium 137 mMol/L (136-145); Total Protein 8.3 gm/dL (5.7-8.2); eGFR 47 See Note
--- NOTE | 2024-05-12 08:33 | XR_ITS ---
Examination: CT left hip without contrast. 2-D sagittal reconstructions. 2-D coronal reconstructions. 3-D reconstructions. Date and time of exam:May 12, 2024 1256 hours INDICATIONS: Left hip pain beginning 2 days ago CTDI: vol (mGy):6.54 DLP: (mGycm):250 Technique: Multiple 1.25 mm axial sections of the left hip and pelvis without have been obtained. 2-D sagittal and coronal reconstructions have been obtained. 3-D reconstructions have been obtained. Low dose protocols were performed. One or more of the following dose reduction techniques were used; automated exposure control, adjustment of the mA and/or KV according to patient size, use of iterative reconstruction technique. Findings: Severe osteopenia Sacral segments intact Iliac bones acetabular regions intact Left hip bipolar hemiarthroplasty with satisfactory alignment Acute intertrochanteric fracture left hip with offset at the main fracture site on the AP view approximately 11 mm Right hip bones of the pelvis intact IMPRESSION: Acute intertrochanteric fracture left hip
--- NOTE | 2024-05-12 08:33 | XR_ITS ---
Examination: Left femur 2 views Technique one AP lateral left femur 2 views Exam date and time: May 12, 2024 1312 hours INDICATIONS: Patient fell yesterday with injury to the hip, hip pain. FINDINGS: Left hip bipolar hemiarthroplasty Intertrochanteric fracture left hip with 9 mm separation at the main fracture site Shaft of the femur mid and distal intact IMPRESSION: Acute intertrochanteric fracture left hip
[2024-05-12] MEDS: SODIUM CHLORIDE 0.9% 1000 ML 1,000 ML 999 ML IV (10:30)
--- NOTE | 2024-05-12 10:43 | PC.NURSE ---
DR DIEGO CALLED ABOUT XRAY/CT ORDER. INFORMED OF PATIENTS MENTATION AND BEING UNCOOPERATIVE. WAS ADAMANT THAT THEY BE DONE. DR PENA CALLED AND INFORMED. HAD ALREADY SPOKE TO HIM ABOUT A POSSIBLE SEDATIVE TO HELP PATIENT RELAX AND COOPERATE. WILL TRY TO COORDINATE TO HAVE BOTH CT AND XRAY DONE WHEN GOES DOWN. STATED WOULD ORDER SOMETHING. CT CALLED AND INFORMED OF SITUATION AND WAITING FOR SEDATIVE ORDER
--- NOTE | 2024-05-12 11:09 | PC.NURSE ---
WENT TO SEE PATIENT TO GIVE PO MED ORDERED. PATIENT IN BED WITH COVERS OVER HEAD. INTRODUCED MYSELF AND ASKED IF HE WOULD PLEASE TAKE A PILL STATED NO, LEAVE ME . ASKED AGAIN, RESPONDED NO, NO . ATTEMPTED TO PULL BLANKET OFF, HE REACHED AND PREVENTED THE BLANKET FROM BEING REMOVED. WILL CALL THE DOCTOR.
--- NOTE | 2024-05-12 11:17 | PC.NURSE ---
ATTEMPTED TO CALL DR PENA NO RESPONSE. ATTEMPTED TO CALL DR GÓMEZ NO RESPONSE.
--- NOTE | 2024-05-12 11:42 | PD.ORTHCON ---
HPI Consult details Reason for consultation narrative: Left hip pain History of present illness: Harvey is an 78-year-old male with left hip pain after an unwitnessed fall yesterday. He was brought in by ambulance from a long term. He had an unwitnessed fall and it is unknown how long he has been there. He is alert and oriented x0 And has severe dementia. We did his Hip hemiarthroplasty 2-1/2 weeks ago. Meds Home Medications and Allergies Home Medications ?Medication ?Instructions ?Recorded ?Confirmed ?Type melatonin 5 mg tablet 5 mg PO HS PRN Insomnia 04/17/24 05/13/24 History multivit,tx with iron 27 1 tab PO QDAY 04/17/24 05/13/24 History vx-jjgzdnc-owqvy acid 0.4 mg-minerals tablet ondansetron 4 mg disintegrating 4 mg PO Q6H PRN Nausea 04/17/24 05/13/24 History tablet bisacodyl 10 mg rectal suppository 10 mg NE Q72H PRN Constipation 04/18/24 05/13/24 History (Dulcolax (bisacodyl)) acetaminophen 325 mg tablet 650 mg PO Q4H PRN pain 05/13/24 05/13/24 History magnesium hydroxide 400 mg/5 mL 30 ml PO Q72H PRN constipation 05/13/24 05/13/24 History oral suspension (Milk of Magnesia) sennosides 8.6 mg tablet (senna) 8.6 mg PO [id number] constipation 05/13/24 05/13/24 History sodium phosphates 19 gram-7 118 ml NE Q72H PRN constipation 05/13/24 05/13/24 History gram/118 mL enema (Fleet Enema) Allergies Allergy/AdvReac Type Severity Reaction Status Date / Time No Known Allergies Allergy Verified 04/17/24 00:02 Exam Vital Signs Temp Pulse Resp BP Pulse Ox O2 Del Method O2 Flow Rate 97.3 F 103 H 18 112/78 92 L Nasal Cannula 2 05/12/24 08:00 05/12/24 08:00 05/12/24 08:00 05/12/24 08:00 05/12/24 08:00 05/12/24 08:00 05/12/24 04:44 Additional findings Additional findings: Patient is in acute distress. He is AAOx0 Breathing is nonlabored. In no respiratory distress. Patient has no paraspinal tenderness. Spinal deformity cannot be appreciated. The gait of the patient is nonantalgic Bilateral extremities were evaluated and demonstrates sensation intact to light touch. Palpable pedal pulses are present. No significant edema is present. Bilateral knees were examined and the patient has full strength and range of motion.. Patient is left leg is shortened and externally rotated. Range of motion was not performed secondary to pain Results - Ortho Labs 05/13/24 05:30 05/13/24 05:30 Labs: Short CBC 05/11/24 05/12/24 Range/Units 14:51 04:49 WBC 17.6 H 15.9 H (3.8-10.6) Thou/mm3 Hgb 13.8 13.4 L (13.5-16.0) g/dL Hct 42.5 40.5 L (41.0-53.0) % Plt Count 347 D 373 (140-440) Thou/mm3 BMP 05/11/24 05/12/24 14:51 04:49 Sodium 136 137 Potassium 4.3 5.1 D Chloride 99 100 Carbon Dioxide 27.3 25.9 BUN 22 30 H Creatinine 1.1 1.5 H Glucose 154 H 117 H Calcium 9.4 9.9 Liver Function 05/11/24 05/12/24 Range/Units 14:51 04:49 Total Bilirubin 0.5 0.7 (0.3-1.2) mg/dL AST 23 23 (0-34) U/L ALT 18 17 (10-49) U/L Alkaline Phosphatase 157 H 157 H (46-116) U/L Albumin 4.0 4.1 (3.4-4.8) gm/dL Imaging Xray: Additional comments: Left hip x-rays demonstrate a periprosthetic fracture. There is a spiral fracture With a large proximal fragment. There are no femur films. We will order femur external as well as a CT scan. I looked at the immediate postoperative films and there was no fracture that can be visualized at that time. Assessment & Plan Problem List (1) Periprosthetic fracture around internal prosthetic left hip joint: Status: Acute Assessment and plan: Patient is an 78-year-old male with a periprosthetic fracture after an unwitnessed fall after he was found on the ground in a retirement facility. He has severe dementia and is not alert and oriented. I discussed multiple options with his daughter who lives in [place] in great detail. I discussed that option 1 is nonoperative treatment and bed rest. I also discussed revision of the hip hemiarthroplasty to another one with ORIF and likely a Osorio type stem with cables. I discussed the risk of this procedure includes refracture especially since he is demented and noncompliant, infection, and medical complications from having surgery in general at his age. His daughter understands the risks and a phone consent was obtained. We will plan to do surgery tomorrow
[2024-05-12 12:35] LABS: Albumin, Serum 4.3 gm/dL (3.4-4.8); Anion Gap 11 (7-16); BUN/Creatinine Ratio 20 Ratio (12-20); Blood Urea Nitrogen 36 mg/dL (9-23); Calcium 9.6 mg/dL (8.3-10.6); Calcium (Corrected) 9.6 mg/dL (8.5-10.1); Carbon Dioxide 25.8 mMol/L (20.0-31.0); Chloride 99 mMol/L (98-107); Creatinine (Component) 1.8 mg/dL (0.6-1.3); Estimated Creatinine Clearance 28.4 mL/min (>60); Glucose 109 mg/dL (74-106); Osmolality,Calculated 281 (275-295); Phosphorous 5.7 mg/dL (2.4-5.1); Potassium 4.9 mMol/L (3.4-5.1); Sodium 136 mMol/L (136-145); eGFR 38 See Note
[2024-05-12] MEDS: LORazepam 2 MG/ML VIAL 1 MG IVP (12:50)
--- NOTE | 2024-05-12 15:58 | ESPR_ITS ---
<Statement entered by Jose Reid MD - 05/19/24 17:34> I reviewed above note and agree with findings and plans. I have also personally examined the patient with medicine team and went over assessment and plan with medical team including product managent intern and resident physician. <Statement entered by Ty Raya MD - 05/13/24 11:02> Senior Resident Attestation: I supervised/discussed management plan with product managent intern physician Dr. Cruz, and was involved in the care of this patient. I personally saw and examined the patient and discussed the assessment and plan with the entire medicine team, including my attending. I agree with the assessment and plan as documented. Patient is pending surgery with Dr. Rice, likely tomorrow, continue to monitor for now, NPO after midnight. Patient's care was discussed with attending physician, Dr. Reid. Ty Raya MD PGY-2. Documentation for date of: 05/12/24 Subjective Subjective Interval history: May 12, 2024: Patient examined at bedside today. HPI is limited as patient did not want to answer questions at this time. No acute overnight events. Patient is refusing to answer many questions, however denies having pain in his leg chest or any was in his body. Denies shortness of breath. BUN/creatinine of 31.5 today, potassium 5.1, magnesium 2.2 white count 16 and hemoglobin 13.4. Blood pressure was a little soft 97/73. No other complaints at this time Exam Vital Signs Temp Pulse Resp BP Pulse Ox O2 Del Method O2 Flow Rate 97.3 F 98 17 115/79 92 L Nasal Cannula 2 05/12/24 12:05/12/24 12:05/12/24 12:05/12/24 12:05/12/24 12:05/12/24 12:05/12/24 12:00 Narrative Exam General: AAOx1, NAD, czech speaking male HEENT: Moist mucous membranes, conjunctiva clear, EOMI, PERRLA, Cardiovascular: S1, S2, radial pulses +2 bilat, RRR Pulmonary: CTAB bilat no cough, no wheezing GI: No tenderness to light or deep palpitation, no guarding, rigidity, rebound tenderness or distension Extremities: No presence of trace or pitting edema in lower extremities bilaterally, dorsalis pedis pulses +2 bilaterally MSK: Patient appears to have some bandage over left hip, it is tender to palpation no obvious purpura at this time Neuro: AAOx1 Psych: Some what Cooperative Objective Labs 05/12/24 04:49 05/12/24 11:40 Labs: Laboratory Results - last 24 hr 05/12/24 05/12/24 04:49 11:40 WBC 15.9 H RBC 4.53 Hgb 13.4 L Hct 40.5 L MCV 89 MCH 29.6 MCHC 33.1 RDW Std Deviation 46.5 H Plt Count 373 Neut % (Auto) 79 Lymph % (Auto) 13 [place] % (Auto) 7 Eos % (Auto) 0 Baso % (Auto) 0 Neut # (Auto) 12.6 H Lymph # (Auto) 2.1 [place] # (Auto) 1.2 H Eos # (Auto) 0.0 Baso # (Auto) 0.1 Immature Gran # (Auto) 0.08 H Absolute Nucleated RBC 0.00 Immature Gran % 1 H Nucleated RBC % 0 PT 11.9 INR 1.1 APTT 27.1 Sodium 137 136 Potassium 5.1 D 4.9 Chloride 100 99 Carbon Dioxide 25.9 25.8 Anion Gap 11 11 BUN 30 H 36 H Creatinine 1.5 H 1.8 H Estim Creat Clear Calc 34.0 L 28.4 L eGFR 47 L 38 L BUN/Creatinine Ratio 20 20 Glucose 117 H 109 H Calculated Osmolality 281 281 Calcium 9.9 9.6 Corrected Calcium 9.9 9.6 Phosphorus 5.7 H Magnesium 2.2 Total Bilirubin 0.7 AST 23 ALT 17 Alkaline Phosphatase 157 H Total Protein 8.3 H Albumin 4.1 4.3 Globulin 4.2 H Albumin/Globulin Ratio 1.0 L Quality Measures Quality Measures none Advance care planning discussed with:: patient Assessment & Plan Assessment Current Active Medications: Generic Name Dose Route Start Last Admin Trade Name Freq PRN Reason Stop Dose Admin Acetaminophen 1,000 mg 05/12/24 08:38 Acetaminophen 500 Mg Tablet PO 06/10/24 17:02 Q6H PRN Fever >100.0 or pain 1-3 Hydrocodone Bitart/Acetaminophen 1 tab 05/11/24 17:03 Hydrocodone/Apap 5/325 Tablet PO 05/16/24 17:02 Q4HR PRN PAIN SCALE 4-6 (Moderate Hydromorphone HCl 0.5 mg 05/12/24 13:51 Hydromorphone Inj 2 Mg/Ml Vial IVP 05/17/24 13:50 Q4HR PRN Pain 7-10 Ondansetron HCl 4 mg 05/11/24 17:03 Ondansetron Inj 2 Mg/Ml Inj 2 Ml IV 06/10/24 17:02 Q6H PRN NAUSEA OR VOMITING Protocol Pantoprazole Sodium 40 mg 05/13/24 09:00 Pantoprazole Inj 40 Mg Vial IVP 06/12/24 08:59 QDAY KALLI Quetiapine Fumarate 25 mg 05/11/24 21:00 05/11/24 21:53 Quetiapine Fumarate 25 Mg Tablet PO 06/10/24 20:59 Not Given HS KALLI Sennosides 1 tab 05/11/24 17:09 Senna Tablet PO 06/10/24 17:08 QDAY PRN constipation Protocol Plan Assessment Harvey is an 78 y/o male with PMHx past medical history of essential hypertension and (dementia?) who is brought in [facility] from [facility] who is admitted for L femoral neck hip fracture that will require surgical intervention. #Left acute intertrochanteric hip fracture status post mechanical fall #L femoral neck hip fracture status post left hip hemiarthroplasty Patient was recently operated on by Dr. Rice on April 18, 2024 and got the left hip hemiarthroplasty Pt was given ASA 81 BID upon d/c for A/C A1c 5.4, TSH 0.78, and Lipid panel includes total cholesterol 195, LDL 127 on previous admission Bedside echo shows EF 55-60%, normal LV, some aortic valve calcification previously and was granted cardiac clearance Consent was obtained with daughter from Dr. Rice. Plan for surgery tomorrow as patient will have revision of hip hemiarthroplasty to another 1 with ORIF and likely a Osorio type stem with cables Patient to get further imaging of hip Plan: ?Orthopedic surgery, Dr. Rice, on consult appreciate recs ? [place] 5-10 q4h PRN ?Dilaudid 0.5 mg every 4 hours as needed ?Surgery likely tomorrow ?n.p.o. at midnight ?Coagulation panel AM #KATIE Patient has been n.p.o., likely developed KATIE due to prerenal Gave patient fluids and bolus, however creatinine worsened to 1.8 as there was 1 point 5 in the morning Plan: ? Continue with NS 70 cc an hour ? Nephro consult ? Urine lytes #History of hypertension Unsure if patient is on blood pressure medicines at home none reviewed upon med rec Continuing with pain control at this time Plan: ? Will hold on resuming any hypertensives at this point #Dementia Primary team started Seroquel upon last admission Will consider adjusting at some point Plan: - Resumed home Seroquel 25 mg PO HS Patient seen and care discussed with my attending physician, Dr. Reid and my senior resident, Dr. Dorota Cruz, PGY-1
[2024-05-12] MEDS: PANTOPRAZOLE INJ 40 MG VIAL IVP (18:32)
[2024-05-12] MEDS: SODIUM CHLORIDE 0.9% 1000 ML 1,000 ML 70 ML IV (20:29)
[2024-05-12] MEDS: QUEtiapine FUMARATE 25 MG TABLET PO (20:30)
[2024-05-12 21:00] LABS: Collection Type, Urine Catheter
[2024-05-12 21:19] LABS: Creatinine,Random Urine 149 mg/dL (30-125); Sodium,Urine Random 36.8 mMol/L (20.0-110.0)
[2024-05-12 21:20] LABS: Bilirubin,Urine Negative (Negative); Blood,Urine 1+ (Negative); Clarity,Urine Clear (Clear/Hazy); Color,Urine Yellow (Lt Yel-Yel); Glucose, Urine Negative (Negative); Hyaline Casts,Urine < 1 /hpf (0-1); Ketones,Urine Negative (Negative); Leukocyte Esterase,Urine Negative (Negative); Nitrite,Urine Negative (Negative); PH,Urine 5.5 (5.0-7.0); Protein,Urine Trace (Neg - Trace); RBC,Urine 21 /hpf (0-3); Specific Gravity,Urine 1.023 (1.001-1.035); Squamous Epithelial Cell,Urine 1 /hpf (0-5); Urobilinogen,Urine Negative mg/dL (0.0-1.0); WBC,Urine 4 /hpf (0-5)
[2024-05-13] VITALS (7 sets, daily range): BP systolic 97–119; BP diastolic 56–75; PULSE 59–103; RESP 17–24; TEMP 36.2–37.1; O2SAT 92–100; BMI 20.5
--- NOTE | 2024-05-13 05:45 | PC.NURSE ---
pt asleep most of the night. Cooperative this morning.
[2024-05-13 05:49] LABS: Basophils # (Auto) 0.1 Thou/mm3 (0.0-0.2); Basophils % (Auto) 1 % (0-2.5); Eosinophils % (Auto) 0 % (0-10); Hematocrit 31.5 % (41.0-53.0); Hemoglobin 10.2 g/dL (13.5-16.0); Immature Granulocytes % (Auto) 0 % (0-0); Immature Granulocytes Auto 0.05 Thou/mm3 (0.00-0.00); Lymphocytes # (Auto) 1.9 Thou/mm3 (1.0-4.8); Lymphocytes % (Auto) 15 % (10-50); Mean Corpuscular HGB Conc 32.4 g/dl (31.0-37.0); Mean Corpuscular Hemoglobin 29.2 pg (25.0-35.0); Mean Corpuscular Volume 90 fL (80-100); Monocytes # (Auto) 1.3 Thou/mm3 (0.0-0.8); Monocytes % (Auto) 10 % (0-12); Neutrophils # (Auto) 8.8 Thou/mm3 (1.8-7.7); Neutrophils % (Auto) 73 % (37-80); Nucleated Red Blood Cell % 0 /100 WBC (0); Platelet Count 242 Thou/mm3 (140-440); RDW Standard Deviation 46.9 fL (35.1-43.9); Red Blood Count 3.49 Miln/mm3 (4.50-5.90); White Blood Count 12.1 Thou/mm3 (3.8-10.6)
[2024-05-13 06:07] LABS: INR 1.1 (0.9-1.3); Partial Thromboplastin Time 29.4 Seconds (22.0-36.0); Prothrombin Time 11.8 Seconds (9.0-12.2)
[2024-05-13 06:46] LABS: Alanine Aminotransferase 11 U/L (10-49); Albumin, Serum 3.6 gm/dL (3.4-4.8); Albumin/Globulin Ratio 1.1 (1.2-2.2); Alkaline Phosphatase 120 U/L (46-116); Anion Gap 9 (7-16); Aspartate Amino Transferase 15 U/L (0-34); BUN/Creatinine Ratio 24 Ratio (12-20); Bilirubin,Total 0.8 mg/dL (0.3-1.2); Blood Urea Nitrogen 44 mg/dL (9-23); Calcium 8.7 mg/dL (8.3-10.6); Carbon Dioxide 25.5 mMol/L (20.0-31.0); Chloride 105 mMol/L (98-107); Creatinine (Component) 1.8 mg/dL (0.6-1.3); Estimated Creatinine Clearance 28.4 mL/min (>60); Globulin 3.4 gm/dL (2.3-3.5); Glucose 104 mg/dL (74-106); Magnesium 2.3 mg/dL (1.6-2.6); Osmolality,Calculated 288 (275-295); Potassium 4.8 mMol/L (3.4-5.1); Sodium 139 mMol/L (136-145); eGFR 38 See Note
--- NOTE | 2024-05-13 07:32 | XR_ITS ---
Examination: Retroperitoneal ultrasound, complete Technique: Multiple high resolution grayscale images of the retroperitoneum obtained, including kidneys and bladder. Exam date and time:May 13 2024 0850 hours INDICATIONS: Acute renal insufficiency on laboratory examination today FINDINGS: Right kidney 9.2 x 4.5 x 4.5 cm cortex 1.6 cm Lower pole cyst 26 mm Moderate right renal parenchymal scar formation Left kidney obscured by bowel gas Bladder contracted around a Breaux catheter prevoid volume 28 cc IMPRESSION: Limited study Moderate right renal parenchymal scar formation, no hydronephrosis Small right kidney with renal cortical thinning
[2024-05-13 08:25] LABS: Creatine Kinase 85 U/L (34-171)
[2024-05-13] MEDS: SODIUM CHLORIDE 0.9% 1000 ML 1,000 ML 70 ML IV (08:49)
[2024-05-13] MEDS: PANTOPRAZOLE INJ 40 MG VIAL IVP (08:49)
--- NOTE | 2024-05-13 09:00 | PD.RESCONSUL ---
HPI Data of Consult Consult date: 05/13/24 Requesting Physician: Osbaldo Aguilera MD Admitting Provider: Jose Reid MD Attending Provider: Osbaldo Aguilera MD Primary Care Provider: Physician No Primary/Family Consult Narrative Reason for consult: Acute renal failure History of present illness: The patient is an 78-year-old male with significant past medical history of essential hypertension, dementia, s/p left hip hemiarthroplasty in April [address] Rice presented to ED with chief complaint of ground-level fall at his SNF. Patient is a poor historian, and HPI was obtained from chart review and interviewing the patient. The patient was found rolled over off the bed at nursing facility, and when asked about it he is confabulating about the incidence. He admitted left hip pain but denied any headache, nausea or vomiting, chest pain, SOB, abdominal pain, any bowel or urinary symptoms or leg swelling. During our encounter his blood pressure was soft with 97/56, saturating 97% on 1 L NC. Physical examination was significant for left hip flexed and externally rotated. CBC revealed white count of 12.1, hemoglobin 10.2, BUN worsening to 44 and creatinine worsening to 1.8 from 22 [address] 1[address] head was negative, hip pelvis x-ray was significant for acute intertrochanteric fracture of left hip, CXR negative, CT of the hip revealed acute trochanteric fracture of the left hip. He was right renal parenchymal scar formation, no hydronephrosis, small right kidney with renal cortical thinning. PMH: As mentioned above PSHx: Left hip hemiarthroplasty April 2024 Medicines: Acetaminophen 650, [place] 08/08/2024, Zofran, senna, melatonin, milk of mag, Fleet enema, Dulcolax, MiraLAX Allergies: No known allergies Family history: Unknown Social history: Coming from [facility] Nephrology consultation was done for worsening KATIE. cc:: cc: Osbaldo Aguilera MD Review of Systems Review of Systems Systems Reviewed: All systems reviewed, normal except as documented Past Medical History Past Medical History NEUROLOGIC: Positive Dementia; Negative Seizures CARDIAC: Positive Cardiac Disorders, Hypertension and Hypotension; Negative Congestive Heart Failure or Congenital Heart Disease RESPIRATORY: Negative Chronic Obstructive Pulmonary Disease (COPD) GENITOURINARY: Negative Renal Disease ENDOCRINE: Negative Endocrine Disorders, Diabetes Mellitus Type 1 or Diabetes Mellitus Type 2 PSYCHO/SOCIAL: Positive Anxiety OTHER HISTORY: Positive Falls; Negative Blood Transfusions or Anesthesia Reactions Surgical History SURGICAL: Positive Hip Sx (Left hip replacement) Social History SMOKING STATUS: Unknown if ever smoked Exam Vital Signs Temp Pulse Resp BP Pulse Ox O2 Del Method O2 Flow Rate 97.1 F 87 18 97/56 L 97 Nasal Cannula 1 05/13/24 08:00 05/13/24 08:00 05/13/24 08:00 05/13/24 08:00 05/13/24 08:00 05/13/24 08:00 05/13/24 08:00 Narrative Exam General: Elderly frail gentleman, No acute distress, Alert and Oriented x himself only HEENT: Moist mucous membranes, oropharynx clear Neck: Supple, No masses, No JVD CVS: S1S2 Regular rate and rhythm, No murmurs, rubs or gallops Lungs: Clear to auscultation with no accessory use, no wheeze no rhonchi Abd: Soft, NT/ND, +BS, no organomegaly Ext: Lt LL with flexed and externally rotated hip, no edema, peripheral pulses 2+ Skin: No rash Psych: Occasionally cooperative Results Labs 05/14/24 17:40 05/14/24 04:40 Labs: Short CBC 05/13/24 Range/Units 05:30 WBC 12.1 H (3.8-10.6) Thou/mm3 Hgb 10.2 L D (13.5-16.0) g/dL Hct 31.5 L (41.0-53.0) % Plt Count 242 D (140-440) Thou/mm3 BMP 05/12/24 05/13/24 11:40 05:30 Sodium 136 139 Potassium 4.9 4.8 Chloride 99 105 Carbon Dioxide 25.8 25.5 BUN 36 H 44 H Creatinine 1.8 H 1.8 H Glucose 109 H 104 Calcium 9.6 8.7 Cardiac Enzymes 05/13/24 Range/Units 05:30 Total Creatine Kinase 85 (34-171) U/L Liver Function 05/12/24 05/13/24 Range/Units 11:40 05:30 Total Bilirubin 0.8 (0.3-1.2) mg/dL AST 15 (0-34) U/L ALT 11 (10-49) U/L Alkaline Phosphatase 120 H D (46-116) U/L Albumin 4.3 3.6 D (3.4-4.8) gm/dL Urine 05/12/24 Range/Units 20:39 Urine Color Yellow (Lt Yel-Yel) Urine Clarity Clear (Clear/Hazy) Urine pH 5.5 (5.0-7.0) Ur Specific [place] 1.023 (1.001-1.035) Urine Protein Trace (Neg - Trace) Urine Glucose (UA) Negative (Negative) Quality Measures Quality Measures none Advance care planning discussed with:: other Medications Home Medications and Allergies Home Medications ?Medication ?Instructions ?Recorded ?Confirmed ?Type melatonin 5 mg tablet 5 mg PO HS PRN Insomnia 04/17/24 05/13/24 History multivit,tx with iron 27 1 tab PO QDAY 04/17/24 05/13/24 History iy-hcalzml-pwadl acid 0.4 mg-minerals tablet ondansetron 4 mg disintegrating 4 mg PO Q6H PRN Nausea 04/17/24 05/13/24 History tablet bisacodyl 10 mg rectal suppository 10 mg TX Q72H PRN Constipation 04/18/24 05/13/24 History (Dulcolax (bisacodyl)) acetaminophen 325 mg tablet 650 mg PO Q4H PRN pain 05/13/24 05/13/24 History magnesium hydroxide 400 mg/5 mL 30 ml PO Q72H PRN constipation 05/13/24 05/13/24 History oral suspension (Milk of Magnesia) sennosides 8.6 mg tablet (senna) 8.6 mg PO [id number] constipation 05/13/24 05/13/24 History sodium phosphates 19 gram-7 118 ml TX Q72H PRN constipation 05/13/24 05/13/24 History gram/118 mL enema (Fleet Enema) Allergies Allergy/AdvReac Type Severity Reaction Status Date / Time No Known Allergies Allergy Verified 04/17/24 00:02 Visit Medications Acetaminophen (Acetaminophen 500 Mg Tablet) 1,000 mg PO Q6H PRN PRN Reason: Fever >100.0 or pain 1-3 Stop: 06/10/24 17:02 Hydrocodone Bitart/Acetaminophen (Hydrocodone/Apap 5/325 Tablet) 1 tab PO Q4HR PRN PRN Reason: PAIN SCALE 4-6 (Moderate Stop: 02/08/25 17:02 Hydromorphone HCl (Hydromorphone Inj 2 Mg/Ml Vial) 0.5 mg IVP Q4HR PRN PRN Reason: Pain 7-10 Stop: 05/17/24 13:50 Sodium Chloride (Ns) 1,000 mls @ 70 mls/hr IV .[id number] [facility] Stop: 06/11/24 15:56 Last Admin: 05/13/24 08:49 Dose: 70 mls/hr Ondansetron HCl (Ondansetron Inj 2 Mg/Ml Inj 2 Ml) 4 mg IV Q6H PRN; Protocol PRN Reason: NAUSEA OR VOMITING Stop: 06/10/24 17:02 Pantoprazole Sodium (Pantoprazole Inj 40 Mg Vial) 40 mg IVP QDAY [facility] Stop: 06/12/24 08:59 Last Admin: 05/13/24 08:49 Dose: 40 mg Quetiapine Fumarate (Quetiapine Fumarate 25 Mg Tablet) 25 mg PO HS [facility] Stop: 06/10/24 20:59 Last Admin: 05/12/24 20:30 Dose: 25 mg Sennosides (Senna Tablet) 1 tab PO QDAY PRN; Protocol PRN Reason: constipation Stop: 06/10/24 17:08 Discontinued Medications Acetaminophen (Acetaminophen 325 Mg Tablet) 650 mg PO Q6H PRN PRN Reason: Fever >101.5 or pain 1-3 Stop: 06/10/24 17:02 Buspirone HCl (Buspirone Hcl 5 Mg Tablet) 5 mg PO X1 ONE Stop: 05/12/24 10:52 Last Admin: 05/12/24 11:15 Dose: Not Given Hydromorphone HCl (Hydromorphone Inj 2 Mg/Ml Vial) 1 mg IVP X1 ONE Stop: 05/11/24 16:34 Last Admin: 05/11/24 17:12 Dose: 1 mg Dextrose/Sodium Chloride (D5-Ns) 1,000 mls @ 70 mls/hr IV .[id number] [facility] Stop: 06/11/24 08:44 Sodium Chloride (Ns) 1,000 mls @ 999 mls/hr IV .Q1H1M ONE Stop: 05/12/24 09:36 Last Admin: 05/12/24 10:30 Dose: 999 mls/hr Lorazepam (Lorazepam 2 Mg/Ml Vial) 1 mg IVP X1 ONE Stop: 05/12/24 11:47 Last Admin: 05/12/24 12:50 Dose: 1 mg Pantoprazole Sodium (Pantoprazole Inj 40 Mg Vial) 40 mg IVP X1 ONE Stop: 05/12/24 13:55 Last Admin: 05/12/24 18:32 Dose: 40 mg Assessment & Plan Plan The patient is an 78-year-old male with significant past medical history of essential hypertension, dementia, s/p left hip hemiarthroplasty in April [address] Rice presented to ED with chief complaint of ground-level fall at his SNF was found to have acute intertrochanteric fracture of left hip further complicated by KATIE. Nephrology consultation was done for worsening KATIE. #KATIE Likely prerenal in the setting of poor intake, further complicated by hip fracture with possible bleeding as Hb has been droping down. US Renal revealed rt parencymal scar formation, no hydronephrosis, small right kidney with renal cortical thinning. BUN worsening to 44 and creatinine worsening to 1.8 from 22 and 1.1 respectively during admission. Urine Na 36 less than 40 and BUN/Cr 24 greater than 20 s/o prerenal etiology. -Ordered complete urine electrolyte panel -Avoid nephrotoxins -Maintenance fluid NS 125cc/hr -Encourage adequate oral rehydration, might need a feeder in the setting of dementia when PO diet is resumed -Repeat renal panel in the am #History of hypertension Currently BP soft -Continue to monitor BP #Acute anemia Likely blood loss anemia in the setting of hip Fx -Monitor H & H -Transfuse if Hb <7. #Left acute intertrochanteric hip fracture status post mechanical fall #L femoral neck hip fracture status post left hip hemiarthroplasty #Dementia -Management deferred to primary team Thank you for your opportunity to participate nephrology team in this patient care. The patient's management plan was discussed with my attending physician MD Eric Keita MD, PGY2 Attending Provider Attestation/Addendum Patient seen and examined with resident physician Dr. Daniels. Note reviewed, agree with findings and recommendations. Patient clinically seems to be dehydrated. Agree with fluids. Increase the rate. Bolus given. Plan of care discussed with primary team. Thank you Osbaldo for allowing me to participate in the care of Mr. Jeffers
--- NOTE | 2024-05-13 10:57 | ESPR_ITS ---
Documentation for date of: 05/13/24 Subjective Subjective Interval history: May 12, 2024: Patient examined at bedside today. HPI is limited as patient did not want to answer questions at this time. No acute overnight events. Patient is refusing to answer many questions, however denies having pain in his leg chest or any was in his body. Denies shortness of breath. BUN/creatinine of 31.5 today, potassium 5.1, magnesium 2.2 white count 16 and hemoglobin 13.4. Blood pressure was a little soft 97/73. No other complaints at this time 05/13/2024: Patient examined at bedside today. No overnight events. Patient reports he is doing okay has some pain in his leg however is doing okay. Is not having any chest pain or shortness of breath. He is planned to go for surgery today. BUN/creatinine 44 and 1.8, magnesium 2.3, hemoglobin 10.2, white count 12.1, coagulation panel unremarkable. Exam Vital Signs Temp Pulse Resp BP Pulse Ox O2 Del Method O2 Flow Rate 97.1 F 87 18 97/56 L 97 Nasal Cannula 1 05/13/24 08:00 05/13/24 08:00 05/13/24 08:00 05/13/24 08:00 05/13/24 08:00 05/13/24 08:00 05/13/24 08:00 Narrative Exam General: AAOx1, NAD, cook islander speaking male HEENT: Moist mucous membranes, conjunctiva clear, EOMI, PERRLA, Cardiovascular: S1, S2, radial pulses +2 bilat, RRR Pulmonary: CTAB bilat no cough, no wheezing GI: No tenderness to light or deep palpitation, no guarding, rigidity, rebound tenderness or distension Extremities: No presence of trace or pitting edema in lower extremities bilaterally, dorsalis pedis pulses +2 bilaterally, left lower extremity externally rotated, some possible ulcer seen on calcaneus MSK: Patient appears to have some bandage over left hip, it is tender to palpation no obvious purpura at this time Neuro: AAOx1 Psych: Some what Cooperative Objective Labs 05/14/24 04:40 05/14/24 04:40 Labs: Laboratory Results - last 24 hr 05/12/24 05/12/24 05/13/24 11:40 20:39 05:30 WBC 12.1 H RBC 3.49 L Hgb 10.2 L D Hct 31.5 L MCV 90 MCH 29.2 MCHC 32.4 RDW Std Deviation 46.9 H Plt Count 242 D Neut % (Auto) 73 Lymph % (Auto) 15 [place] % (Auto) 10 Eos % (Auto) 0 Baso % (Auto) 1 Neut # (Auto) 8.8 H Lymph # (Auto) 1.9 [place] # (Auto) 1.3 H Eos # (Auto) 0.0 Baso # (Auto) 0.1 Immature Gran # (Auto) 0.05 H Absolute Nucleated RBC 0.00 Immature Gran % 0 Nucleated RBC % 0 PT 11.8 INR 1.1 APTT 29.4 Sodium 136 139 Potassium 4.9 4.8 Chloride 99 105 Carbon Dioxide 25.8 25.5 Anion Gap 11 9 BUN 36 H 44 H Creatinine 1.8 H 1.8 H Estim Creat Clear Calc 28.4 L 28.4 L eGFR 38 L 38 L BUN/Creatinine Ratio 20 24 H Glucose 109 H 104 Calculated Osmolality 281 288 Calcium 9.6 8.7 Corrected Calcium 9.6 9.0 Phosphorus 5.7 H Magnesium 2.3 Total Bilirubin 0.8 AST 15 ALT 11 Alkaline Phosphatase 120 H D Total Creatine Kinase 85 Total Protein 7.0 Albumin 4.3 3.6 D Globulin 3.4 Albumin/Globulin Ratio 1.1 L Ur Collection Type Catheter Urine Color Yellow Urine Clarity Clear Urine pH 5.5 Ur Specific [place] 1.023 Urine Protein Trace Urine Glucose (UA) Negative Urine Ketones Negative Urine Blood 1+ A Urine Nitrite Negative Urine Bilirubin Negative Urine Urobilinogen (Auto) Negative Ur Leukocyte Esterase Negative Urine RBC 21 H Urine WBC 4 Ur Squamous Epith Cells 1 Urine Bacteria None Hyaline Casts < 1 Ur Random Creatinine 149 H Ur Random Sodium 36.8 Quality Measures Quality Measures none Advance care planning discussed with:: patient Assessment & Plan Assessment Current Active Medications: Generic Name Dose Route Start Last Admin Trade Name Freq PRN Reason Stop Dose Admin Acetaminophen 1,000 mg 05/12/24 08:38 Acetaminophen 500 Mg Tablet PO 06/10/24 17:02 Q6H PRN Fever >100.0 or pain 1-3 Hydrocodone Bitart/Acetaminophen 1 tab 05/11/24 17:03 Hydrocodone/Apap 5/325 Tablet PO 05/16/24 17:02 Q4HR PRN PAIN SCALE 4-6 (Moderate Hydromorphone HCl 0.5 mg 05/12/24 13:51 Hydromorphone Inj 2 Mg/Ml Vial IVP 05/17/24 13:50 Q4HR PRN Pain 7-10 Sodium Chloride 1,000 mls @ 70 mls/hr 05/12/24 15:57 05/13/24 08:49 Ns IV 06/11/24 15:56 70 mls/hr .[id number] KALLI Administration Ondansetron HCl 4 mg 05/11/24 17:03 Ondansetron Inj 2 Mg/Ml Inj 2 Ml IV 06/10/24 17:02 Q6H PRN NAUSEA OR VOMITING Protocol Pantoprazole Sodium 40 mg 05/13/24 09:00 05/13/24 08:49 Pantoprazole Inj 40 Mg Vial IVP 06/12/24 08:59 40 mg QDAY KALLI Administration Quetiapine Fumarate 25 mg 05/11/24 21:00 05/12/24 20:30 Quetiapine Fumarate 25 Mg Tablet PO 06/10/24 20:59 25 mg HS KALLI Administration Sennosides 1 tab 05/11/24 17:09 Senna Tablet PO 06/10/24 17:08 QDAY PRN constipation Protocol Plan Assessment Harvey is an 78 y/o male with PMHx past medical history of essential hypertension and (dementia?) who is brought in [facility] from [facility] who is admitted for L femoral neck hip fracture that will require surgical intervention. #Left acute intertrochanteric hip fracture status post mechanical fall #L femoral neck hip fracture status post left hip hemiarthroplasty Patient was recently operated on by Dr. Rice on April 18, 2024 and got the left hip hemiarthroplasty Pt was given ASA 81 BID upon d/c for A/C A1c 5.4, TSH 0.78, and Lipid panel includes total cholesterol 195, LDL 127 on previous admission Bedside echo shows EF 55-60%, normal LV, some aortic valve calcification previously and was granted cardiac clearance Consent was obtained with daughter from Dr. Rice. Plan for surgery tomorrow as patient will have revision of hip hemiarthroplasty to another 1 with ORIF and likely a Osorio type stem with cables Further imaging of hip shows acute intertrochanteric hip fracture Patient is supposed to go to surgery today however was unable to go to surgery due to creatinine function Will adjust for renal function with hopes for surgery tomorrow Plan: ? Orthopedic surgery, Dr. Rice, on consult appreciate recs ? [place] 5-10 q4h PRN ? Dilaudid 0.5 mg every 4 hours as needed ? Surgery likely tomorrow ? n.p.o. at midnight ? Coagulation panel AM #KATIE Patient has been n.p.o., likely developed KATIE due to prerenal Creatinine appears to continue to be 1.8 FENa calculated 0.3, prerenal ideology Renal ultrasound shows moderate right parenchymal scar formation, no hydronephrosis, small right kidney with renal cortical thinnin Plan: ? Continue with NS 120 cc an hour ? Nephro on consult, appreciate recs ? Trend CMP ? Avoid nephrotoxic agents #History of hypertension Unsure if patient is on blood pressure medicines at home none reviewed upon med rec Continuing with pain control at this time Plan: ? Will hold on resuming any hypertensives at this point #Dementia Primary team started Seroquel upon last admission Will consider adjusting at some point Plan: - Resumed home Seroquel 25 mg PO HS Patient seen and care discussed with my attending physician, Dr. Raya and my senior resident, Dr. Dorota Cruz, PGY-1 Attending Provider Attestation/Addendum I reviewed labs, imaging, EKG, home medications and prior available records. Face to face evaluation was performed by me. I have personally examined the patient and discussed assessment and plan with the IM team. I reviewed the resident note and agree with the plan with exceptions as below. Left acute intertrochanteric hip fracture: In the setting of ground-level fall. Discussed with orthopedic surgery. This gentleman has made to proceed with surgery. KATIE: New complication. Possibly due to decreased oral intake. Started IV fluids. Monitor kidney function. Avoid nephrotoxins. Renally dose medications. Dementia: Patient appears calm. Resume Seroquel. Delirium precautions.
--- NOTE | 2024-05-13 11:59 | PC.SS ---
Initial assessment: this is 78 year old male. Patient is a resident at [facility]. Patient's emergency contact is daughter, Sandy Jeffers who lives in [facility]. [facility] ambulatory at SNF. Patient recently had a fall at the SNF as he is reported to be mentally unstable and difficult to redirect. Patient's PCP is Dr. Shields. Patient to return to SNF once stable. D/c plan: [facility] Next of kin: daughter, Sandy Jeffers
--- NOTE | 2024-05-13 14:25 | PC.SS ---
Rounding note: patient pending surgery with Dr. Rice
[2024-05-13] MEDS: SODIUM CHLORIDE 0.9% 1000 ML 1,000 ML 125 ML IV (14:55)
[2024-05-13] MEDS: SODIUM CHLORIDE 0.9% 500 ML 500 ML 999 ML IV (18:33)
[2024-05-13] MEDS: QUEtiapine FUMARATE 25 MG TABLET PO (19:59)
[2024-05-14] VITALS (15 sets, daily range): BP systolic 92–126; BP diastolic 53–83; PULSE 77–109; RESP 13–18; TEMP 36–36.6; O2SAT 92–100
[2024-05-14] MEDS: SODIUM CHLORIDE 0.9% 1000 ML 1,000 ML 125 ML IV (00:42)
--- NOTE | 2024-05-14 02:12 | PC.NURSE ---
Pt's BP 92/53, Dr. Monteiro was made aware. MD will check pt's chart and call back.
[2024-05-14] MEDS: SODIUM CHLORIDE 0.9% 250 ML 250 ML 999 ML IV (02:26)
[2024-05-14 06:02] LABS: INR 1.1 (0.9-1.3); Partial Thromboplastin Time 32.4 Seconds (22.0-36.0); Prothrombin Time 11.8 Seconds (9.0-12.2)
[2024-05-14 06:06] LABS: Basophils # (Auto) 0.1 Thou/mm3 (0.0-0.2); Basophils % (Auto) 1 % (0-2.5); Eosinophils # (Auto) 0.2 Thou/mm3 (0.0-0.5); Eosinophils % (Auto) 3 % (0-10); Hematocrit 25.9 % (41.0-53.0); Immature Granulocytes % (Auto) 0 % (0-0); Immature Granulocytes Auto 0.03 Thou/mm3 (0.00-0.00); Lymphocytes # (Auto) 1.8 Thou/mm3 (1.0-4.8); Lymphocytes % (Auto) 21 % (10-50); Mean Corpuscular HGB Conc 32.8 g/dl (31.0-37.0); Mean Corpuscular Hemoglobin 30.5 pg (25.0-35.0); Mean Corpuscular Volume 93 fL (80-100); Monocytes # (Auto) 0.8 Thou/mm3 (0.0-0.8); Monocytes % (Auto) 9 % (0-12); Neutrophils # (Auto) 5.7 Thou/mm3 (1.8-7.7); Neutrophils % (Auto) 67 % (37-80); Nucleated Red Blood Cell % 0 /100 WBC (0); Platelet Count 197 Thou/mm3 (140-440); RDW Standard Deviation 48.6 fL (35.1-43.9); Red Blood Count 2.79 Miln/mm3 (4.50-5.90); White Blood Count 8.5 Thou/mm3 (3.8-10.6)
[2024-05-14 06:16] LABS: Hemoglobin 8.5 g/dL (13.5-16.0)
[2024-05-14 06:43] LABS: Potassium,Urine Random 42 mMol/L (12-62); Protein Total, Random Urine 18 mg/dL (1-14)
[2024-05-14 06:44] LABS: Alanine Aminotransferase 9 U/L (10-49); Albumin, Serum 3.2 gm/dL (3.4-4.8); Albumin/Globulin Ratio 1.1 (1.2-2.2); Alkaline Phosphatase 102 U/L (46-116); Anion Gap 8 (7-16); Aspartate Amino Transferase 12 U/L (0-34); BUN/Creatinine Ratio 29 Ratio (12-20); Bilirubin,Total 0.6 mg/dL (0.3-1.2); Blood Urea Nitrogen 35 mg/dL (9-23); Calcium 8.3 mg/dL (8.3-10.6); Calcium (Corrected) 8.9 mg/dL (8.5-10.1); Carbon Dioxide 21.9 mMol/L (20.0-31.0); Chloride 109 mMol/L (98-107); Creatinine (Component) 1.2 mg/dL (0.6-1.3); Estimated Creatinine Clearance 42.6 mL/min (>60); Globulin 2.9 gm/dL (2.3-3.5); Glucose 87 mg/dL (74-106); Magnesium 2.1 mg/dL (1.6-2.6); Osmolality,Calculated 284 (275-295); Potassium 4.1 mMol/L (3.4-5.1); Sodium 139 mMol/L (136-145); Total Protein 6.1 gm/dL (5.7-8.2); eGFR > 60 See Note
--- NOTE | 2024-05-14 08:09 | PC.NURSE ---
Patient to surgery via bed.
--- NOTE | 2024-05-14 08:46 | ESPR_ITS ---
Documentation for date of: 05/14/24 Subjective Subjective Interval history: May 12, 2024: Patient examined at bedside today. HPI is limited as patient did not want to answer questions at this time. No acute overnight events. Patient is refusing to answer many questions, however denies having pain in his leg chest or any was in his body. Denies shortness of breath. BUN/creatinine of 31.5 today, potassium 5.1, magnesium 2.2 white count 16 and hemoglobin 13.4. Blood pressure was a little soft 97/73. No other complaints at this time 05/13/2024: Patient examined at bedside today. No overnight events. Patient reports he is doing okay has some pain in his leg however is doing okay. Is not having any chest pain or shortness of breath. He is planned to go for surgery today. BUN/creatinine 44 and 1.8, magnesium 2.3, hemoglobin 10.2, white count 12.1, coagulation panel unremarkable. 05/14/2024: Pt examined by bedside today. No acute overnight events. Pt to go for surgery today. BUN/Cr 35 and 1.2, downtrending, random sodium and Chloride urine showed levels of 155 both. White count 8.5 and Hgb 8.5. Coagulation panel unremarkable. Exam Vital Signs Temp Pulse Resp BP Pulse Ox O2 Del Method O2 Flow Rate 97.3 F 83 18 102/56 L 93 L Room Air 1 05/14/24 07:55 05/14/24 07:55 05/14/24 07:55 05/14/24 07:55 05/14/24 07:55 05/14/24 07:55 05/14/24 04:03 Narrative Exam General: AAOx1, NAD, [place] speaking male HEENT: Moist mucous membranes, conjunctiva clear, EOMI, PERRLA, Cardiovascular: S1, S2, radial pulses +2 bilat, RRR Pulmonary: CTAB bilat no cough, no wheezing GI: No tenderness to light or deep palpitation, no guarding, rigidity, rebound tenderness or distension Extremities: No presence of trace or pitting edema in lower extremities bilaterally, dorsalis pedis pulses +2 bilaterally, left lower extremity externally rotated, some possible ulcer seen on calcaneus MSK: Patient appears to have some bandage over left hip, it is tender to palpation no obvious purpura at this time Neuro: AAOx1 Psych: Some what Cooperative Objective Labs 05/15/24 05:08 05/15/24 05:08 Labs: Laboratory Results - last 24 hr 05/13/24 05/14/24 05/14/24 15:58 04:40 06:00 WBC 8.5 RBC 2.79 L Hgb 8.5 L Hct 25.9 L MCV 93 MCH 30.5 MCHC 32.8 RDW Std Deviation 48.6 H Plt Count 197 D Neut % (Auto) 67 Lymph % (Auto) 21 [place] % (Auto) 9 Eos % (Auto) 3 Baso % (Auto) 1 Neut # (Auto) 5.7 Lymph # (Auto) 1.8 [place] # (Auto) 0.8 Eos # (Auto) 0.2 Baso # (Auto) 0.1 Immature Gran # (Auto) 0.03 H Absolute Nucleated RBC 0.00 Immature Gran % 0 Nucleated RBC % 0 PT 11.8 INR 1.1 APTT 32.4 Sodium 139 Potassium 4.1 D Chloride 109 H Carbon Dioxide 21.9 Anion Gap 8 BUN 35 H Creatinine 1.2 D Estim Creat Clear Calc 42.6 L eGFR > 60 BUN/Creatinine Ratio 29 H Glucose 87 Calculated Osmolality 284 Calcium 8.3 Corrected Calcium 8.9 Magnesium 2.1 Total Bilirubin 0.6 AST 12 ALT 9 L Alkaline Phosphatase 102 Total Protein 6.1 Albumin 3.2 L Globulin 2.9 Albumin/Globulin Ratio 1.1 L U Random Total Protein 18 H Ur Random Sodium 155.0 H Ur Random Potassium 42 Ur Random Chloride 155.0 H Ur Random Urea Nitrogn 879.0 Blood Type O Positive Antibody Screen NEGATIVE Crossmatch See Detail Blood Bank Wristband ID Yes Quality Measures Quality Measures none Advance care planning discussed with:: patient Assessment & Plan Assessment Current Active Medications: Generic Name Dose Route Start Last Admin Trade Name Freq PRN Reason Stop Dose Admin Acetaminophen 1,000 mg 05/12/24 08:38 Acetaminophen 500 Mg Tablet PO 06/10/24 17:02 Q6H PRN Fever >100.0 or pain 1-3 Hydrocodone Bitart/Acetaminophen 1 tab 05/11/24 17:03 Hydrocodone/Apap 5/325 Tablet PO 05/16/24 17:02 Q4HR PRN PAIN SCALE 4-6 (Moderate Hydromorphone HCl 0.5 mg 05/12/24 13:51 Hydromorphone Inj 2 Mg/Ml Vial IVP 05/17/24 13:50 Q4HR PRN Pain 7-10 Sodium Chloride 1,000 mls @ 125 mls/hr 05/13/24 13:16 05/14/24 00:42 Ns IV 06/12/24 13:15 125 mls/hr .Q8H KALLI Administration Ondansetron HCl 4 mg 05/11/24 17:03 Ondansetron Inj 2 Mg/Ml Inj 2 Ml IV 06/10/24 17:02 Q6H PRN NAUSEA OR VOMITING Protocol Pantoprazole Sodium 40 mg 05/13/24 09:00 05/13/24 08:49 Pantoprazole Inj 40 Mg Vial IVP 06/12/24 08:59 40 mg QDAY KALLI Administration Quetiapine Fumarate 25 mg 05/11/24 21:00 05/13/24 19:59 Quetiapine Fumarate 25 Mg Tablet PO 06/10/24 20:59 25 mg HS KALLI Administration Sennosides 1 tab 05/11/24 17:09 Senna Tablet PO 06/10/24 17:08 QDAY PRN constipation Protocol Plan Assessment Harevy is an 78 y/o male with PMHx past medical history of essential hypertension and (dementia?) who is brought in [facility] from [facility] who is admitted for L femoral neck hip fracture that will require surgical intervention. #Left acute intertrochanteric hip fracture status post mechanical fall #L femoral neck hip fracture status post left hip hemiarthroplasty Patient was recently operated on by Dr. Rice on April 18, 2024 and got the left hip hemiarthroplasty Pt was given ASA 81 BID upon d/c for A/C A1c 5.4, TSH 0.78, and Lipid panel includes total cholesterol 195, LDL 127 on previous admission Bedside echo shows EF 55-60%, normal LV, some aortic valve calcification previously and was granted cardiac clearance Consent was obtained with daughter from Dr. Rice. Plan for surgery tomorrow as patient will have revision of hip hemiarthroplasty to another 1 with ORIF and likely a Osorio type stem with cables Further imaging of hip shows acute intertrochanteric hip fracture Patient is supposed to go to surgery today however was unable to go to surgery due to creatinine function Surgery today PT to see patient tomorrow Plan: ? Orthopedic surgery, Dr. Rice, on consult appreciate recs ? [place] 5-10 q4h PRN ? Dilaudid 0.5 mg every 4 hours as needed ? Surgery today ? Pain control for postoperative surgery - Nurse bedside eval and advance diet after surgery #KATIE, prerenal #? NAGMA Patient has been n.p.o., likely developed KATIE due to prerenal Creatinine appears to continue to be 1.2 from 1.8 yesterday FENa calculated 0.3, prerenal ideology Renal ultrasound shows moderate right parenchymal scar formation, no hydronephrosis, small right kidney with renal cortical thinnin Urine anion gap +42 with urine lytes, however could of been bad sample as pt was having KATIE Plan: ? Continue with NS 120 cc an hour ? Nephro on consult, appreciate recs ? Trend CMP ? Avoid nephrotoxic agents #History of hypertension Unsure if patient is on blood pressure medicines at home none reviewed upon med rec Continuing with pain control at this time Plan: ? Will hold on resuming any hypertensives at this point #Dementia Primary team started Seroquel upon last admission Will consider adjusting at some point Plan: - Resumed home Seroquel 25 mg PO HS Patient seen and care discussed with my attending physician, Dr. Aguilera and my senior resident, Dr. Jana Cruz, PGY-1 L Patient is a 78 year old male admitted for acute LT intertrochanteric hip fracture after a ground level fall. Hip XR shows acute intertrochanteric hip fracture. Patient had a LT hip hemiarthroplasty performed in Apr, 2024. Orthopedic surgeon Dr Rice is consulted for further recommendations. During the hospitalization, patient developed KATIE, possibly due to decreased oral intake. He has been started IV fluids. Monitor kidney function. Avoid nephrotoxins. Renally dose medications. Dementia: Patient appears calm. Resume Seroquel. Delirium precautions. Attending Provider Attestation/Addendum I reviewed labs, imaging, EKG, home medications and prior available records. Face to face evaluation was performed by me. I have personally examined the patient and discussed assessment and plan with the IM team. I reviewed the resident note and agree with the plan with exceptions as below. Left acute intertrochanteric hip fracture: In the setting of ground-level fall. Discussed with orthopedic surgery. Decision was made to proceed with surgery. Status post ORIF. Tolerated the surgery well. Cefazolin IV for 24 hours postoperatively. Toe-touch weightbearing to the left lower extremity. Ordered PT evaluation. Started Eliquis 2.5 mg twice daily for DVT prophylaxis. KATIE: Improved with IV fluids. Monitor kidney function. Avoid nephrotoxins. Renally dose medications. Dementia: Patient appears calm. Resume Seroquel. Delirium precautions.
--- NOTE | 2024-05-14 09:24 | XR_ITS ---
Examination: Left hip AP portable 2 views TECHNIQUE: Left hip AP portable 2 views Exam date and time: February 11, 2025 0940 hours INDICATIONS: Left hip arthroplasty today. FINDINGS: Left hip bipolar hemiarthroplasty. Satisfactory alignment No fracture IMPRESSION: Left hip hemiarthroplasty with satisfactory alignment
--- NOTE | 2024-05-14 10:33 | XR_ITS ---
Examination: Left hip 2 views TECHNIQUE: AP left hip 2 views Exam date and time: May 14, 2024 1131 hours INDICATIONS: Postop hip replacement May 14, 2024 FINDINGS: Left hip hemiarthroplasty. Satisfactory alignment Satisfactory position orthopedic hardware Severe osteopenia IMPRESSION: Left hip hemiarthroplasty with satisfactory alignment
--- NOTE | 2024-05-14 10:33 | XR_ITS ---
Examination: AP pelvis, AP left hip single view Exam date and time: May 14, 2024 1133 hours INDICATIONS: Postop hip arthroplasty FINDINGS: Left hip hemiarthroplasty. Satisfactory alignment Orthopedic hardware satisfactory position Severe osteopenia IMPRESSION: Left hip hemiarthroplasty with satisfactory alignment.
--- NOTE | 2024-05-14 10:34 | PD.SUROPNT ---
Date of Procedure 05/14/24 Pre Op Diagnosis left hip periprosthetic fracture Post Op Diagnosis left hip periprosthetic fracture Procedure left hip hemiarthroplasty revision and open reduction and internal fixation with cerclage cables Findings periprosthetic fracture with large medial fragment Procedure Description Indications: Patient is a 78-year-old male with severe dementia who had an unwitnessed fall and was found down. He is 2 weeks status post left hip hemiarthroplasty for femoral neck fracture. He was found to have a periprosthetic fracture adjacent to his hemiarthroplasty. We discussed options with his daughter who is the power of research attorney. We discussed revision to a longer stem with ORIF and reduction total fixation and cerclage as well as nonoperative management with bedrest. After discussion of risk and benefits, the daughter who is the power of research attorney wanted to proceed with surgical management. Procedure in detail: The patient was brought to the operating room. A surgical timeout was performed. The patient was placed in a lateral decubitus position with well-padded extremities. The prior incision was used and we extended it distally approximately 6 cm. The prior anterolateral approach was used. The prior repair was ripped. We used the existing gluteus split and dislocated the hip with external rotation and a bone hook. We were able to pull the existing prosthesis out. We reduced the hip with bone tenaculums. Once we will obtain good reduction, we passed 3 cerclage cables ensuring that we were on bone. We then tightened the [place] cables and crimped it and then removed the existing tenaculum. We then reamed the canal by hand. We were able to get a good fit with a 16mm reamer. The final distal reamer was applied and then we were sequentially reamed to fit the proximal body. We then trialed the body with different neck lengths and a 50 mm head. It was found to be stable. The final +20 body was used as well as a plus 4 50mm head. The final proximal body was inserted. We used a torque wrench to tighten the proximal body ensuring that there was no malrotation upon final tightening. We did use a derotational application to make sure that there was no rotation of the proximal body. The final 50 mm head was inserted. The patient was brought through range of motion and the hip was found to be stable in both flexion and internal rotation as well as extension and external rotation. We heavily irrigated the wound with both saline and dilute Betadine. We then closed the existing vastus lateralis as well as gluteus medius split. Fascia was closed followed by 0 Vicryl and 2-0 Vicryl. We used tameka for the superficial skin. Postoperative protocol: Cefazolin 2g x24 hours Toe-touch weightbearing left lower extremity Anterior hip precautions Eliquis for DVT prophylaxis Follow hemoglobins. He was transfused 2 units IntraOp as he had a starting hemoglobin in the 8s Anesthesia GETA Implants edison adalid [id number] distal venu,. 21mm+20 cone body, 50OD, +4, 3 cables Pathology / specimen None Pathology comment: none Estimated Blood Loss 200 Condition Stable Disposition floor Surgeon Devin Rice MD Surgical Staff Operation Date: 05/14/24 07:30 Case Staff ONCOLOGY PHYSICIAN ASSISTANT: Tad Lima RNmarketing regional consultant: Dora Garcia
--- NOTE | 2024-05-14 10:52 | SUR.PHASEI ---
pt received from OR in recovery bay 4. pt obtunded, breathing unlabored on 8l oxymask, oral airway in place. v/s stable. pt dressing to left lower extremity cdi. report receicved from Monty ANAYA and Tad LARSEN.
--- NOTE | 2024-05-14 11:10 | ESPR_ITS ---
Documentation for date of: 05/14/24 Subjective Subjective Interval history: The patient is an 78-year-old male with significant past medical history of essential hypertension, dementia, s/p left hip hemiarthroplasty in April [address] Rice presented to ED with chief complaint of ground-level fall at his SNF. Patient is a poor historian, and HPI was obtained from chart review and interviewing the patient. The patient was found rolled over off the bed at nursing facility, and when asked about it he is confabulating about the incidence. He admitted left hip pain but denied any headache, nausea or vomiting, chest pain, SOB, abdominal pain, any bowel or urinary symptoms or leg swelling. During our encounter his blood pressure was soft with 97/56, saturating 97% on 1 L NC. Physical examination was significant for left hip flexed and externally rotated. CBC revealed white count of 12.1, hemoglobin 10.2, BUN worsening to 44 and creatinine worsening to 1.8 from 22 and 1.[address] head was negative, hip pelvis x-ray was significant for acute intertrochanteric fracture of left hip, CXR negative, CT of the hip revealed acute trochanteric fracture of the left hip. He was right renal parenchymal scar formation, no hydronephrosis, small right kidney with renal cortical thinning. PMH: As mentioned above PSHx: Left hip hemiarthroplasty April 2024 Medicines: Acetaminophen 650, [place] 08/08/2024, Zofran, senna, melatonin, milk of mag, Fleet enema, Dulcolax, MiraLAX Allergies: No known allergies Family history: Unknown Social history: Coming from [facility] Nephrology consultation was done for worsening KATIE. 05/14/24: the patient underwent surgical fixation left hip. His vitals are. He stable, labs were significant for he chemistry panel revelaed improvement in creatinine from 1.8-1.2. More likely prerenal as Cr improved within a day after IV fluid, ruling out ATN. Exam Vital Signs Temp Pulse Resp BP Pulse Ox O2 Del Method O2 Flow Rate 97.3 F 83 18 102/56 L 93 L Room Air 1 05/14/24 07:55 05/14/24 07:55 05/14/24 07:55 05/14/24 07:55 05/14/24 07:55 05/14/24 07:55 05/14/24 04:03 Narrative Exam General: Elderly frail gentleman, No acute distress, Alert and Oriented x himself only HEENT: Moist mucous membranes, oropharynx clear Neck: Supple, No masses, No JVD CVS: S1S2 Regular rate and rhythm, No murmurs, rubs or gallops Lungs: Clear to auscultation with no accessory use, no wheeze no rhonchi Abd: Soft, NT/ND, +BS, no organomegaly Ext: Lt LL with clean dressing, no edema, peripheral pulses 2+ Skin: No rash Psych: Occasionally cooperative Objective Labs 05/14/24 17:40 05/14/24 04:40 Labs: Laboratory Results - last 24 hr 05/13/24 05/14/24 05/14/24 15:58 04:40 06:00 WBC 8.5 RBC 2.79 L Hgb 8.5 L Hct 25.9 L MCV 93 MCH 30.5 MCHC 32.8 RDW Std Deviation 48.6 H Plt Count 197 D Neut % (Auto) 67 Lymph % (Auto) 21 [place] % (Auto) 9 Eos % (Auto) 3 Baso % (Auto) 1 Neut # (Auto) 5.7 Lymph # (Auto) 1.8 [place] # (Auto) 0.8 Eos # (Auto) 0.2 Baso # (Auto) 0.1 Immature Gran # (Auto) 0.03 H Absolute Nucleated RBC 0.00 Immature Gran % 0 Nucleated RBC % 0 PT 11.8 INR 1.1 APTT 32.4 Sodium 139 Potassium 4.1 D Chloride 109 H Carbon Dioxide 21.9 Anion Gap 8 BUN 35 H Creatinine 1.2 D Estim Creat Clear Calc 42.6 L eGFR > 60 BUN/Creatinine Ratio 29 H Glucose 87 Calculated Osmolality 284 Calcium 8.3 Corrected Calcium 8.9 Magnesium 2.1 Total Bilirubin 0.6 AST 12 ALT 9 L Alkaline Phosphatase 102 Total Protein 6.1 Albumin 3.2 L Globulin 2.9 Albumin/Globulin Ratio 1.1 L U Random Total Protein 18 H Ur Random Sodium 155.0 H Ur Random Potassium 42 Ur Random Chloride 155.0 H Ur Random Urea Nitrogn 879.0 Blood Type O Positive Antibody Screen NEGATIVE Crossmatch See Detail Blood Bank Wristband ID Yes Quality Measures Quality Measures none Advance care planning discussed with:: other Assessment & Plan Assessment Current Active Medications: Generic Name Dose Route Start Last Admin Trade Name Freq PRN Reason Stop Dose Admin Acetaminophen 1,000 mg 05/12/24 08:38 Acetaminophen 500 Mg Tablet PO 06/10/24 17:02 Q6H PRN Fever >100.0 or pain 1-3 Hydrocodone Bitart/Acetaminophen 1 tab 05/11/24 17:03 Hydrocodone/Apap 5/325 Tablet PO 05/16/24 17:02 Q4HR PRN PAIN SCALE 4-6 (Moderate Fentanyl Citrate 25 mcg 05/14/24 10:02 Fentanyl Cit Inj 50 Mcg/Ml Amp 2ml IV 05/14/24 12:03 Q5M PRN PAIN SCALE 1-3 (mild Fentanyl Citrate 50 mcg 05/14/24 10:02 Fentanyl Cit Inj 50 Mcg/Ml Amp 2ml IV 05/14/24 12:03 Q5M PRN PAIN SCALE 4-6 (Moderate Hydromorphone HCl 0.5 mg 05/12/24 13:51 Hydromorphone Inj 2 Mg/Ml Vial IVP 05/17/24 13:50 Q4HR PRN Pain 7-10 Hydromorphone HCl 0.25 mg 05/14/24 10:02 Hydromorphone Inj 2 Mg/Ml Vial IV 05/14/24 12:03 Q5M PRN PAIN SCALE 7-10 (Severe Sodium Chloride 1,000 mls @ 125 mls/hr 05/13/24 13:16 05/14/24 00:42 Ns IV 06/12/24 13:15 125 mls/hr .Q8H KALLI Administration Ondansetron HCl 4 mg 05/11/24 17:03 Ondansetron Inj 2 Mg/Ml Inj 2 Ml IV 06/10/24 17:02 Q6H PRN NAUSEA OR VOMITING Protocol Pantoprazole Sodium 40 mg 05/13/24 09:00 05/13/24 08:49 Pantoprazole Inj 40 Mg Vial IVP 06/12/24 08:59 40 mg QDAY KALLI Administration Quetiapine Fumarate 25 mg 05/11/24 21:00 05/13/24 19:59 Quetiapine Fumarate 25 Mg Tablet PO 06/10/24 20:59 25 mg HS KALLI Administration Sennosides 1 tab 05/11/24 17:09 Senna Tablet PO 06/10/24 17:08 QDAY PRN constipation Protocol Plan The patient is an 78-year-old male with significant past medical history of essential hypertension, dementia, s/p left hip hemiarthroplasty in April [address] Rice presented to ED with chief complaint of ground-level fall at his SNF was found to have acute intertrochanteric fracture of left hip further complicated by KATIE. Nephrology consultation was done for worsening KATIE. #KATIE Likely prerenal in the setting of poor intake, further complicated by hip fracture with possible bleeding as Hb has been droping down. US Renal revealed rt parencymal scar formation, no hydronephrosis, small right kidney with renal cortical thinning. BUN worsening to 44 and creatinine worsening to 1.8 from 22 and 1.1 respectively during admission. Urine Na 36 less than 40 and BUN/Cr 24 greater than 20 s/o prerenal etiology. Urine electrolyte panel was significant for sodium 155, Cl 155 which are high, but his katie improved within a day ruling out ATN. -Avoid nephrotoxins -Encourage adequate oral rehydration, might need a feeder in the setting of dementia when PO diet is resumed -Repeat renal panel in the am #History of hypertension Currently BP soft -Continue to monitor BP #Acute anemia Likely blood loss anemia in the setting of hip Fx -Monitor H & H -Transfuse if Hb <7. #Left acute intertrochanteric hip fracture status post mechanical fall #L femoral neck hip fracture status post left hip hemiarthroplasty #Dementia -Management deferred to primary team Thank you for your opportunity to participate nephrology team in this patient care. The patient's management plan was discussed with my attending physician MD Eric Keita MD, PGY2 Attending Provider Attestation/Addendum Patient seen and examined with resident physician Dr. Daniels. Note reviewed, agree with findings and recommendations. Patient clinically seems to be dehydrated. Agree with fluids. Increase the rate. Bolus given. Plan of care discussed with primary team. Creatinine markedly improved. Going for surgery. Thank you Osbaldo for allowing me to participate in the care of Mr. Jeffers
--- NOTE | 2024-05-14 12:12 | SUR.PHASEI ---
pt asleep but responds to voice, breathing unlabored on room on air. v/s stable. pt dressing to left lower extremity cdi. report called to Ankita Cohen. pt will be transferred to room at this time.
--- NOTE | 2024-05-14 12:29 | PC.NURSE ---
Patient back to med surg unit from surgery via bed. Patient asleep. Telesitter notified to alert this nurse once the patient is awake.
[2024-05-14] MEDS: ceFAZolin/D5W 2 GM IV 2 GM/100 ML BAG IV ×2 (13:21→21:35)
[2024-05-14 18:02] LABS: Hemoglobin 10.3 g/dL (13.5-16.0)
[2024-05-14] MEDS: QUEtiapine FUMARATE 25 MG TABLET PO (21:35)
[2024-05-14] MEDS: HYDROmorphone INJ 2 MG/ML VIAL 0.5 MG IVP (21:35)
[2024-05-15 04:00] VITALS: BP 112/73; PULSE 108; RESP 16; TEMP 36.2; O2SAT 93
[2024-05-15] MEDS: ceFAZolin/D5W 2 GM IV 2 GM/100 ML BAG IV ×3 (05:41→21:11)
[2024-05-15 05:46] LABS: Basophils % (Auto) 0 % (0-2.5); Eosinophils % (Auto) 0 % (0-10); Hematocrit 29.6 % (41.0-53.0); Hemoglobin 9.7 g/dL (13.5-16.0); Immature Granulocytes % (Auto) 0 % (0-0); Immature Granulocytes Auto 0.04 Thou/mm3 (0.00-0.00); Lymphocytes # (Auto) 0.7 Thou/mm3 (1.0-4.8); Lymphocytes % (Auto) 6 % (10-50); Mean Corpuscular HGB Conc 32.8 g/dl (31.0-37.0); Mean Corpuscular Hemoglobin 28.7 pg (25.0-35.0); Mean Corpuscular Volume 88 fL (80-100); Monocytes # (Auto) 0.5 Thou/mm3 (0.0-0.8); Monocytes % (Auto) 5 % (0-12); Neutrophils # (Auto) 9.3 Thou/mm3 (1.8-7.7); Neutrophils % (Auto) 89 % (37-80); Nucleated Red Blood Cell % 0 /100 WBC (0); Platelet Count 207 Thou/mm3 (140-440); RDW Standard Deviation 47.2 fL (35.1-43.9); Red Blood Count 3.38 Miln/mm3 (4.50-5.90); White Blood Count 10.5 Thou/mm3 (3.8-10.6)
[2024-05-15 05:56] LABS: Prothrombin Time 11.2 Seconds (9.0-12.2)
[2024-05-15 06:21] LABS: Alanine Aminotransferase 10 U/L (10-49); Albumin, Serum 3.1 gm/dL (3.4-4.8); Albumin/Globulin Ratio 1.1 (1.2-2.2); Alkaline Phosphatase 101 U/L (46-116); Anion Gap 6 (7-16); Aspartate Amino Transferase 21 U/L (0-34); BUN/Creatinine Ratio 23 Ratio (12-20); Bilirubin,Total 0.5 mg/dL (0.3-1.2); Blood Urea Nitrogen 28 mg/dL (9-23); Calcium (Corrected) 8.7 mg/dL (8.5-10.1); Chloride 108 mMol/L (98-107); Creatinine (Component) 1.2 mg/dL (0.6-1.3); Estimated Creatinine Clearance 42.6 mL/min (>60); Globulin 2.7 gm/dL (2.3-3.5); Glucose 114 mg/dL (74-106); Magnesium 2.1 mg/dL (1.6-2.6); Osmolality,Calculated 278 (275-295); Potassium 4.6 mMol/L (3.4-5.1); Sodium 136 mMol/L (136-145); Total Protein 5.8 gm/dL (5.7-8.2); eGFR > 60 See Note
[2024-05-15 08:00] VITALS: BP 106/73; PULSE 92; RESP 17; TEMP 36; O2SAT 95
[2024-05-15] MEDS: PANTOPRAZOLE INJ 40 MG VIAL IVP (08:35)
[2024-05-15] MEDS: APIXABAN 2.5 MG TABLET PO ×2 (08:35→20:25)
--- NOTE | 2024-05-15 10:20 | PD.RESPRO ---
Documentation for date of: 05/15/24 Subjective Subjective Interval history: The patient is an 78-year-old male with significant past medical history of essential hypertension, dementia, s/p left hip hemiarthroplasty in April [address] Rice presented to ED with chief complaint of ground-level fall at his SNF. Patient is a poor historian, and HPI was obtained from chart review and interviewing the patient. The patient was found rolled over off the bed at nursing facility, and when asked about it he is confabulating about the incidence. He admitted left hip pain but denied any headache, nausea or vomiting, chest pain, SOB, abdominal pain, any bowel or urinary symptoms or leg swelling. During our encounter his blood pressure was soft with 97/56, saturating 97% on 1 L NC. Physical examination was significant for left hip flexed and externally rotated. CBC revealed white count of 12.1, hemoglobin 10.2, BUN worsening to 44 and creatinine worsening to 1.8 from 22 and 1.[address] head was negative, hip pelvis x-ray was significant for acute intertrochanteric fracture of left hip, CXR negative, CT of the hip revealed acute trochanteric fracture of the left hip. He was right renal parenchymal scar formation, no hydronephrosis, small right kidney with renal cortical thinning. PMH: As mentioned above PSHx: Left hip hemiarthroplasty April 2024 Medicines: Acetaminophen 650, [place] 08/08/2024, Zofran, senna, melatonin, milk of mag, Fleet enema, Dulcolax, MiraLAX Allergies: No known allergies Family history: Unknown Social history: Coming from [facility] Nephrology consultation was done for worsening KATIE. 05/14/24: the patient underwent surgical fixation left hip. His vitals are. He stable, labs were significant for he chemistry panel revelaed improvement in creatinine from 1.8-1.2. More likely prerenal as Cr improved within a day after IV fluid, ruling out ATN. 05/15/2024: The patient was examined at the bedside this morning. He reported doing fairly well. His vitals were stable with, physical examination was significant for left hip under dressing, hemoglobin 9.7, chemistry panel significant for BUN 28 and creatinine 1.2, BUN/creatinine ratio 23. The patient underwent surgical fixation of left hip, and was transfused 2 units of PRBC. We will continue to monitor hemoglobin and renal panel, encourage oral rehydration. Exam Vital Signs Temp Pulse Resp BP Pulse Ox O2 Del Method O2 Flow Rate 97.2 F 108 H 16 112/73 93 L Room Air 2 05/15/24 04:00 05/15/24 04:00 05/15/24 04:00 05/15/24 04:00 05/15/24 04:00 05/15/24 04:00 05/14/24 16:00 Narrative Exam General: Elderly frail gentleman, No acute distress, Alert and Oriented x himself only HEENT: Moist mucous membranes, oropharynx clear Neck: Supple, No masses, No JVD CVS: S1S2 Regular rate and rhythm, No murmurs, rubs or gallops Lungs: Clear to auscultation with no accessory use, no wheeze no rhonchi Abd: Soft, NT/ND, +BS, no organomegaly Ext: Lt LL with clean dressing, no edema, peripheral pulses 2+ Skin: No rash Psych: Occasionally cooperative Objective Labs 05/16/24 11:23 05/16/24 11:23 Labs: Laboratory Results - last 24 hr 05/14/24 05/15/24 17:40 05:08 WBC 10.5 RBC 3.38 L Hgb 10.3 L D 9.7 L Hct 31.0 L 29.6 L MCV 88 MCH 28.7 MCHC 32.8 RDW Std Deviation 47.2 H Plt Count 207 Neut % (Auto) 89 H Lymph % (Auto) 6 L [place] % (Auto) 5 Eos % (Auto) 0 Baso % (Auto) 0 Neut # (Auto) 9.3 H Lymph # (Auto) 0.7 L [place] # (Auto) 0.5 Eos # (Auto) 0.0 Baso # (Auto) 0.0 Immature Gran # (Auto) 0.04 H Absolute Nucleated RBC 0.00 Immature Gran % 0 Nucleated RBC % 0 PT 11.2 INR 1.0 Sodium 136 Potassium 4.6 D Chloride 108 H Carbon Dioxide 22.0 Anion Gap 6 L BUN 28 H Creatinine 1.2 Estim Creat Clear Calc 42.6 L eGFR > 60 BUN/Creatinine Ratio 23 H Glucose 114 H Calculated Osmolality 278 Calcium 8.0 L Corrected Calcium 8.7 Magnesium 2.1 Total Bilirubin 0.5 AST 21 ALT 10 Alkaline Phosphatase 101 Total Protein 5.8 Albumin 3.1 L Globulin 2.7 Albumin/Globulin Ratio 1.1 L Quality Measures Quality Measures none Advance care planning discussed with:: patient Assessment & Plan Assessment Current Active Medications: Generic Name Dose Route Start Last Admin Trade Name Freq PRN Reason Stop Dose Admin Acetaminophen 1,000 mg 05/12/24 08:38 Acetaminophen 500 Mg Tablet PO 06/10/24 17:02 Q6H PRN Fever >100.0 or pain 1-3 Hydrocodone Bitart/Acetaminophen 1 tab 05/14/24 11:36 Hydrocodone/Apap 5/325 Tablet PO 05/16/24 17:02 Q3HR PRN PAIN SCALE 4-6 (Moderate Apixaban 2.5 mg 05/15/24 09:00 05/15/24 08:35 Apixaban 2.5 Mg Tablet PO 06/14/24 08:59 2.5 mg BID KALLI Administration Hydromorphone HCl 0.5 mg 05/14/24 11:36 05/14/24 21:35 Hydromorphone Inj 2 Mg/Ml Vial IVP 05/17/24 13:50 0.5 mg Q3HR PRN Administration Pain 7-10 Cefazolin Sodium 2 gm in 100 mls @ 200 mls/hr 05/14/24 14:00 05/15/24 05:41 Ancef 2gm Ivpb IV 05/21/24 13:59 200 mls/hr Q8HR KALLI Administration Ondansetron HCl 4 mg 05/11/24 17:03 Ondansetron Inj 2 Mg/Ml Inj 2 Ml IV 06/10/24 17:02 Q6H PRN NAUSEA OR VOMITING Protocol Pantoprazole Sodium 40 mg 05/13/24 09:00 05/15/24 08:35 Pantoprazole Inj 40 Mg Vial IVP 06/12/24 08:59 40 mg QDAY KALLI Administration Quetiapine Fumarate 25 mg 05/11/24 21:00 05/14/24 21:35 Quetiapine Fumarate 25 Mg Tablet PO 06/10/24 20:59 25 mg HS KALLI Administration Sennosides 1 tab 05/11/24 17:09 Senna Tablet PO 06/10/24 17:08 QDAY PRN constipation Protocol Plan The patient is an 78-year-old male with significant past medical history of essential hypertension, dementia, s/p left hip hemiarthroplasty in April [address] Rice presented to ED with chief complaint of ground-level fall at his SNF was found to have acute intertrochanteric fracture of left hip further complicated by KATIE. Nephrology consultation was done for worsening KATIE. #KATIE, improving Likely prerenal in the setting of poor intake, further complicated by hip fracture with possible bleeding as Hb has been droping down. US Renal revealed rt parencymal scar formation, no hydronephrosis, small right kidney with renal cortical thinning. BUN worsening to 44 and creatinine worsening to 1.8 from 22 and 1.1 respectively during admission. Urine Na 36 less than 40 and BUN/Cr 24 greater than 20 s/o prerenal etiology. Urine electrolyte panel was significant for sodium 155, Cl 155 which are high, but his katie improved within a day ruling out ATN. 05/15/24: BUN 28, Cr 1.2 -Avoid nephrotoxins -Encourage adequate oral rehydration, might need a feeder in the setting of dementia when PO diet is resumed -Repeat renal panel in the am #History of hypertension Currently BP soft -Continue to monitor BP #Acute anemia Likely blood loss anemia in the setting of hip Fx -Monitor H & H -Transfuse if Hb <7. #Left acute intertrochanteric hip fracture status post mechanical fall #L femoral neck hip fracture status post left hip hemiarthroplasty #Dementia -Management deferred to primary team Thank you for your opportunity to participate nephrology team in this patient care. The patient's management plan was discussed with my attending physician MD Eric Keita MD, PGY2 Attending Provider Attestation/Addendum Patient seen and examined with resident physician Dr. Daniels. Note reviewed, agree with findings and recommendations. Patient clinically seems to be dehydrated. Agree with fluids. Increase the rate. Bolus given. Plan of care discussed with primary team. Creatinine markedly improved. Status post left hip surgery. Patient has advanced dementia
--- NOTE | 2024-05-15 10:41 | PC.SS ---
Follow up note: SS spoke to physician who states patient may d/c back to [facility] today. SS contacted patient's daughter, Sandy, to verify if she is agreeable with patient returning to facility. Daughter was agreeable. SS discussed IMM rights as well. Daughter agreeable if patient has orders for today.
[2024-05-15 12:00] VITALS: BP 124/76; PULSE 87; RESP 18; TEMP 36.6; O2SAT 93
[2024-05-15 13:19] VITALS: BMI 12.0
--- NOTE | 2024-05-15 15:31 | ESPR_ITS ---
Documentation for date of: 05/15/24 Subjective Subjective Interval history: Patient was seen and examined at bedside. No acute overnight events. Patient underwent surgery yesterday for periprosthetic fracture with large medial fragment. Today he reports his pain is well-controlled. Per orthopedic surgery patient will be staying for additional day for monitoring due to complicated fracture and surgery. Exam Vital Signs Temp Pulse Resp BP Pulse Ox O2 Del Method O2 Flow Rate 97.9 F 87 18 124/76 93 L Room Air 2 05/15/24 12:00 05/15/24 12:00 05/15/24 12:00 05/15/24 12:00 05/15/24 12:00 05/15/24 12:00 05/14/24 16:00 Narrative Exam Gen: Well-developed and well-nourished elderly. HEENT: NCAT, PERRLA, EOMI, MMM, anicteric conjunctivae. CVS: normal S1 and S2. RRR. No M/R/G. Resp: CTA B/L. No rhonchi, rales, crackles or wheezing. Abd: soft, non-tender, non-distended. BS+ in all 4 quadrants. MSK: Good ROM in BUE. Left hip in bandage, appears clean. No edema or rash. Neuro: CN II-XII grossly intact. Strength 5/5 in BUE. Alert and oriented x2. Psych: appropriate mood and affect. Objective Labs 05/15/24 05:08 05/15/24 05:08 Labs: Laboratory Results - last 24 hr 05/14/24 05/15/24 17:40 05:08 WBC 10.5 RBC 3.38 L Hgb 10.3 L D 9.7 L Hct 31.0 L 29.6 L MCV 88 MCH 28.7 MCHC 32.8 RDW Std Deviation 47.2 H Plt Count 207 Neut % (Auto) 89 H Lymph % (Auto) 6 L [place] % (Auto) 5 Eos % (Auto) 0 Baso % (Auto) 0 Neut # (Auto) 9.3 H Lymph # (Auto) 0.7 L [place] # (Auto) 0.5 Eos # (Auto) 0.0 Baso # (Auto) 0.0 Immature Gran # (Auto) 0.04 H Absolute Nucleated RBC 0.00 Immature Gran % 0 Nucleated RBC % 0 PT 11.2 INR 1.0 Sodium 136 Potassium 4.6 D Chloride 108 H Carbon Dioxide 22.0 Anion Gap 6 L BUN 28 H Creatinine 1.2 Estim Creat Clear Calc 42.6 L eGFR > 60 BUN/Creatinine Ratio 23 H Glucose 114 H Calculated Osmolality 278 Calcium 8.0 L Corrected Calcium 8.7 Magnesium 2.1 Total Bilirubin 0.5 AST 21 ALT 10 Alkaline Phosphatase 101 Total Protein 5.8 Albumin 3.1 L Globulin 2.7 Albumin/Globulin Ratio 1.1 L Quality Measures Quality Measures VTE prophylaxis Advance care planning discussed with:: patient Assessment & Plan Assessment Current Active Medications: Generic Name Dose Route Start Last Admin Trade Name Freq PRN Reason Stop Dose Admin Acetaminophen 1,000 mg 05/12/24 08:38 Acetaminophen 500 Mg Tablet PO 06/10/24 17:02 Q6H PRN Fever >100.0 or pain 1-3 Hydrocodone Bitart/Acetaminophen 1 tab 05/14/24 11:36 Hydrocodone/Apap 5/325 Tablet PO 05/16/24 17:02 Q3HR PRN PAIN SCALE 4-6 (Moderate Apixaban 2.5 mg 05/15/24 09:00 05/15/24 08:35 Apixaban 2.5 Mg Tablet PO 06/14/24 08:59 2.5 mg BID KALLI Administration Hydromorphone HCl 0.5 mg 05/14/24 11:36 05/14/24 21:35 Hydromorphone Inj 2 Mg/Ml Vial IVP 05/17/24 13:50 0.5 mg Q3HR PRN Administration Pain 7-10 Cefazolin Sodium 2 gm in 100 mls @ 200 mls/hr 05/14/24 14:00 05/15/24 13:07 Ancef 2gm Ivpb IV 05/21/24 13:59 200 mls/hr Q8HR KALLI Administration Ondansetron HCl 4 mg 05/11/24 17:03 Ondansetron Inj 2 Mg/Ml Inj 2 Ml IV 06/10/24 17:02 Q6H PRN NAUSEA OR VOMITING Protocol Pantoprazole Sodium 40 mg 05/13/24 09:00 05/15/24 08:35 Pantoprazole Inj 40 Mg Vial IVP 06/12/24 08:59 40 mg QDAY KALLI Administration Quetiapine Fumarate 25 mg 05/11/24 21:00 05/14/24 21:35 Quetiapine Fumarate 25 Mg Tablet PO 06/10/24 20:59 25 mg HS KALLI Administration Sennosides 1 tab 05/11/24 17:09 Senna Tablet PO 06/10/24 17:08 QDAY PRN constipation Protocol Plan Mr. Gabriel is an 78 y/o male with PMHx past medical history of essential hypertension and (dementia?) who is brought in [facility] from [facility] who is admitted for L femoral neck hip fracture that will require surgical intervention. #Lt intertrochanteric hip fracture 2/2 mechanical fall, s/p left hip hemiarthroplasty revision and open reduction and internal fixation with cerclage cables, post-op day 1. #Lt femoral neck hip fracture s/p left hip hemiarthroplasty 04/20/2024. Patient was recently operated on by Dr. Rice on April 20, 2024 and got the left hip hemiarthroplasty. Pt was given ASA 81 BID upon d/c for A/C. A1c 5.4, TSH 0.78, and Lipid panel includes total cholesterol 195, LDL 127 on previous admission. Bedside echo shows EF 55-60%, normal LV, some aortic valve calcification previously and was granted cardiac clearance. Consent was obtained with daughter from Dr. Rice. Plan for surgery tomorrow as patient will have revision of hip hemiarthroplasty to another 1 with ORIF and likely a Osorio type stem with cables. Further imaging of hip shows acute intertrochanteric hip fracture. Patient is supposed to go to surgery today however was unable to go to surgery due to creatinine function. Plan: ? Orthopedic surgery, Dr. Rice, on consult appreciate recs. ? [place] 5-10 q4h PRN. ? Dilaudid 0.5 mg every 4 hours as needed. ? Pain control for postoperative surgery. - Nurse bedside eval and advance diet after surgery. #[place], prerenal. #?NAGMA. Patient has been n.p.o., likely developed KATIE due to prerenal Creatinine appears to continue to be 1.2 from 1.8 yesterday FENa calculated 0.3, prerenal ideology Renal ultrasound shows moderate right parenchymal scar formation, no hydronephrosis, small right kidney with renal cortical thinnin Urine anion gap +42 with urine lytes, however could of been bad sample as pt was having KATIE Plan: ? Continue with NS 120 cc an hour ? Nephro on consult, appreciate recs ? Trend CMP ? Avoid nephrotoxic agents #History of hypertension. Unsure if patient is on blood pressure medicines at home none reviewed upon med rec Continuing with pain control at this time Plan: ? Will hold on resuming any hypertensives at this point #Dementia. Primary team started Seroquel upon last admission Will consider adjusting at some point Plan: - Resumed home Seroquel 25 mg PO HS FEN: Dysphagia 2. DVT prophylaxis: Eliquis. GI prophylaxis: Protonix. Dispo: MedSurg. CODE STATUS: Full code. Plan of care discussed with attending Dr. Aguilera. Ty Raya MD, PGY 2. Disclaimer: This note was dictated by speech recognition. Minor errors in personal finance instructor may be present due to voice recognition software. Attending Provider Attestation/Addendum I reviewed labs, imaging, EKG, home medications and prior available records. Face to face evaluation was performed by me. I have personally examined the patient and discussed assessment and plan with the IM team. I reviewed the resident note and agree with the plan with exceptions as below. Left acute intertrochanteric hip fracture: In the setting of ground-level fall. Discussed with orthopedic surgery. Decision was made to proceed with surgery. Status post ORIF. Tolerated the surgery well. Toe-touch weightbearing to the left lower extremity. Ordered PT evaluation. Started Eliquis 2.5 mg twice daily for DVT prophylaxis. KATIE: Improved with IV fluids. Monitor kidney function. Avoid nephrotoxins. Renally dose medications. Dementia: Patient appears calm. Resume Seroquel. Delirium precautions.
[2024-05-15 16:00] VITALS: BP 133/90; PULSE 88; RESP 18; TEMP 36.4; O2SAT 96
[2024-05-15 16:21] VITALS: PULSE 95; RESP 16; RESP 94
--- NOTE | 2024-05-15 18:20 | PC.NURSE ---
Patient is confused and has history of severe dementia. Patient pulled his IV this morning and pulled again this afternoon. He also removed the dressing on his left upper extremity where his surgical incision is. Patient was transferred from room 379 to room 362 with sitter.
[2024-05-15 20:00] VITALS: BP 144/78; PULSE 96; RESP 20; TEMP 36.7; O2SAT 96
[2024-05-15] MEDS: QUEtiapine FUMARATE 25 MG TABLET PO (20:25)
[2024-05-16] VITALS (7 sets, daily range): BP systolic 130–147; BP diastolic 74–94; PULSE 86–111; RESP 16–95; TEMP 36.2–37.2; O2SAT 92–98
[2024-05-16] MEDS: ceFAZolin/D5W 2 GM IV 2 GM/100 ML BAG IV (05:31)
[2024-05-16] MEDS: APIXABAN 2.5 MG TABLET PO (08:59)
[2024-05-16] MEDS: PANTOPRAZOLE INJ 40 MG VIAL IVP (08:59)
--- NOTE | 2024-05-16 10:44 | ESDS_ITS ---
Planned Discharge Date 05/16/24 DS: Providers Provider Date of admission: 05/11/24 17:03 Primary care physician: Physician No Primary/Family Admitting Provider: Jose Reid MD Attending Provider on Admission: Osbaldo Aguilera MD Consults: 05/11/24 14:11 Consult to Orthopedic Stat Comment: Consulting Provider: Devin Rice 05/12/24 13:52 Consult to Nephrology Routine Comment: Consulting Provider: Ellen Smart 05/13/24 03:50 Referral Wound Care Routine Comment: left heel purple blisters 05/13/24 10:20 Referral Nutritional Services Routine Comment: Wounds 05/14/24 12:11 Referral Physical Therapy Routine Comment: Physician Instructions: Instructions: post op hip Attending Provider on DC: Osbaldo Aguilera MD Discharging Provider: Osbaldo Aguilera MD DS: Diagnosis Problem List Completed Was Problem List Reviewed/Reconciled?: Yes Hospital Course Hospital Course Hospital course: Harvey is a 78 y/o male with PMHx essential hypertension, possible dementia, status post left hip hemiarthroplasty in April 18, 2024 who was admitted on 05/11/2024 for refracture of Left intertrochanteric hip fracture secondary to mechanical fall at his [facility]. Pt had L hip hemiarthroplasty on April 18, [address] Rice in which he received prior cardiac clearance. He came to the ED afebrile blood pressure 120 systolic, respiratory rate 15, saturation 92% on room air, heart rate of 76. He was worked up and was found to have a white count of 17.6, hemoglobin of 13.8, coagulation panel negative, sodium of 136, potassium 4.3, BUN/creatinine of 22 and 1.1 respectively, glucose of 154, calcium of 9.4, AST ALT 23 and 18 respectively, T. bili of 0.5. EKG was done and showed sinus tachycardia. Hip pelvis x-ray showed acute intratrocha nteric fracture of the left hip. Head CT was negative for any acute hemorrhage or mass effect. Chest x-ray showed no pneumonia or pulmonary edema. Ortho was consulted who recommended admission for possible operation tonight. Medicine was consulted and patient admitted to the floor. Point of contact which was daughter was contacted and provided consent for orthopedic surgery. Pt had left hip hemiarthroplasty revision and open reduction and internal fixation with cerclage cables on 05/14/[address] Rice. Pt tolerated surgery well and pt improved over the coming days with pain control. Pt did develop a prerenal KATIE at some point prior to surgery which delayed the surgery, FeNa was calcuated which showed prerenal etiology, and pt's Cr improved to 1.2 (1.8 at worse) with fluids. Pt to return to SNF with recommendations to follow up with Dr. Rice within two weeks. He will need to consider a one to one sitter at the SNF as he is high fall risk as this is his second fall within the past month, which both required surgery. Follow up with PCP and orthopedic surgery within 2 weeks. Continue home medications as prescribed. Take [place] for pain as needed Take Eliquis 2.5 mg BID for 35 days Take [place] 5 q6h PRN for breakthrough pain for 5 days #Lt intertrochanteric hip fracture 2/2 mechanical fall, s/p left hip hemiarthroplasty revision and open reduction and internal fixation with cerclage cables #Lt femoral neck hip fracture s/p left hip hemiarthroplasty 04/20/2024 #KATIE, prerenal, resolved #History of hypertension. #Dementia. Patient seen and care discussed with my senior resident, Dr. Raya , and my attending physician, Dr. Willy Cruz, PGY-1 Time Spent with Patient Time attestation: Total time spent providing and/or coordinating discharge services: Time spent: Greater than 30 minutes Exam Vital Signs Temp Pulse Resp BP Pulse Ox O2 Del Method O2 Flow Rate 98.1 F 86 20 144/86 H 95 Room Air 2 05/16/24 08:00 05/16/24 08:00 05/16/24 08:00 05/16/24 08:00 05/16/24 08:00 05/16/24 08:00 05/16/24 04:00 Narrative Exam Gen: Well-developed and well-nourished elderly. HEENT: NCAT, PERRLA, EOMI, MMM, anicteric conjunctivae. CVS: normal S1 and S2. RRR. No M/R/G. Resp: CTA B/L. No rhonchi, rales, crackles or wheezing. Abd: soft, non-tender, non-distended. BS+ in all 4 quadrants. MSK: Good ROM in BUE. Left hip in bandage, appears clean. No edema or rash. Neuro: CN II-XII grossly intact. Strength 5/5 in BUE. Alert and oriented x2. Psych: appropriate mood and affect. Discharge Plan Plan Patient Disposition: Xfer Skilled Nsg Fac (SNF) Disposition Comment: [facility] Care Plan Goals: Follow up with PCP and orthopedic surgery within 2 weeks. Continue home medications as prescribed. Take [place] for pain as needed Take Eliquis 2.5 mg BID for 35 days Take [place] 5 q6h PRN for breakthrough pain for 5 days Prescriptions/Referrals Prescriptions/Med Rec: New Eliquis 2.5 mg tablet 2.5 mg PO BID 35 Days Qty: 70 0RF hydrocodone-acetaminophen 5-325 mg tablet 1 tab PO Q6H MDD 4 tablets PRN (Reason: pain) 5 Days Qty: 20 0RF Continued ondansetron 4 mg Tablet,Disintegrating 4 mg PO Q6H PRN (Reason: Nausea) multivitamin,ab-lvvj-Lq-FA-min 27-0.4 mg Tablet 1 tab PO QDAY melatonin 5 mg Tablet 5 mg PO HS PRN (Reason: Insomnia) bisacodyl [Dulcolax (bisacodyl)] 10 mg Suppository 10 mg WA Q72H PRN (Reason: Constipation) polyethylene glycol 3350 [ClearLax] 17 gram/dose powder 4 g PO QDAY PRN (Reason: constipation) Qty: 119 0RF hydrocodone-acetaminophen 5-325 mg Tablet 1 tab PO BID MDD 2 Qty: 10 0RF quetiapine 25 mg Tablet 25 mg PO HS 30 Days Qty: 30 0RF acetaminophen 325 mg tablet 650 mg PO Q4H PRN (Reason: pain) Fleet Enema 19-7 gram/118 mL enema 118 ml WA Q72H PRN (Reason: constipation) Rx Instructions: if mom/dulcolax suppository ineffective magnesium hydroxide [Milk of Magnesia] 400 mg/5 mL suspension 30 ml PO Q72H PRN (Reason: constipation) Rx Instructions: if no bm for 3 consecutive days sennosides [senna] 8.6 mg tablet 8.6 mg PO [id number] Discontinued aspirin [Ecotrin Low Strength] 81 mg Tablet,Delayed Release (Dr/Ec) 81 mg PO BID 35 Days Qty: 70 0RF Referrals: No Primary/Family,Physician [Primary Care Provider] - Patient/Caregiver Discharge Instructions Education Materials: After a Hip Fracture: Common Questions, Preventing Surgical Site Infections Print Language: Vietnamese Stand Alone Forms: Sarah Award Info., Patient Portal Info Letter Discharge Order Discharge Orders: Discharge (Routine); Ordered 05/16/24 Ordered By: Demetris Cruz Quality Discharge Quality Measures VTE prophylaxis (Eliquis ) Attestestation MD Attestation I reviewed labs, imaging, EKG, home medications and prior available records. Face to face evaluation was performed by me. I have personally examined the patient and discussed assessment and plan with the IM team. I reviewed the resident note and agree with the plan with exceptions as below. Left acute intertrochanteric hip fracture: In the setting of ground-level fall. Discussed with orthopedic surgery. Decision was made to proceed with surgery. Status post ORIF. Tolerated the surgery well. Toe-touch weightbearing to the left lower extremity. Ordered PT evaluation. Started Eliquis 2.5 mg twice daily for DVT prophylaxis. Follow-up with orthopedic surgery as outpatient. KATIE: Improved with IV fluids. Monitor kidney function. Avoid nephrotoxins. Renally dose medications. Dementia: Patient appears calm. Resume Seroquel. Delirium precautions. Time spent is 40 minutes. More than 50% of the time was spent on patient education and coordination of care.
[2024-05-16 11:43] LABS: Basophils % (Auto) 0 % (0-2.5); Eosinophils # (Auto) 0.1 Thou/mm3 (0.0-0.5); Eosinophils % (Auto) 1 % (0-10); Hematocrit 34.6 % (41.0-53.0); Hemoglobin 11.4 g/dL (13.5-16.0); Immature Granulocytes % (Auto) 1 % (0-0); Immature Granulocytes Auto 0.09 Thou/mm3 (0.00-0.00); Lymphocytes # (Auto) 1.4 Thou/mm3 (1.0-4.8); Lymphocytes % (Auto) 14 % (10-50); Mean Corpuscular HGB Conc 32.9 g/dl (31.0-37.0); Mean Corpuscular Hemoglobin 28.7 pg (25.0-35.0); Mean Corpuscular Volume 87 fL (80-100); Monocytes # (Auto) 0.8 Thou/mm3 (0.0-0.8); Monocytes % (Auto) 8 % (0-12); Neutrophils # (Auto) 7.7 Thou/mm3 (1.8-7.7); Neutrophils % (Auto) 77 % (37-80); Nucleated Red Blood Cell % 0 /100 WBC (0); Platelet Count 271 Thou/mm3 (140-440); RDW Standard Deviation 46.1 fL (35.1-43.9); Red Blood Count 3.97 Miln/mm3 (4.50-5.90)
[2024-05-16 12:06] LABS: Albumin, Serum 3.9 gm/dL (3.4-4.8); Anion Gap 6 (7-16); BUN/Creatinine Ratio 22 Ratio (12-20); Blood Urea Nitrogen 24 mg/dL (9-23); Calcium 8.7 mg/dL (8.3-10.6); Calcium (Corrected) 8.8 mg/dL (8.5-10.1); Carbon Dioxide 27.7 mMol/L (20.0-31.0); Chloride 100 mMol/L (98-107); Creatinine (Component) 1.1 mg/dL (0.6-1.3); Estimated Creatinine Clearance 46.4 mL/min (>60); Glucose 91 mg/dL (74-106); Osmolality,Calculated 272 (275-295); Phosphorous 1.5 mg/dL (2.4-5.1); Potassium 3.7 mMol/L (3.4-5.1); Sodium 134 mMol/L (136-145); eGFR > 60 See Note
--- NOTE | 2024-05-16 13:36 | PC.SS ---
Erp Manager (LIANE) Gely notified by Dr. Aguilera that patient is ready for discharge. LIANE contacted [facility] and spoke to Admission Coordinator, Aisha who requested information for patient to return. LIANE faxed information. LIANE contacted patient's daughter, Sandy and left a voice message to call LIANE. LIANE contacted [facility] for insurance transportation, reference number: [id number]. Pending EMS ETA.
--- NOTE | 2024-05-16 15:56 | PC.NURSE ---
report given to mansoor receiving nurse at [facility]. dc packet included for snf review.
--- NOTE | 2024-05-16 18:56 | ESPR_ITS ---
Documentation for date of: 05/16/24 Subjective Subjective Interval history: The patient is an 78-year-old male with significant past medical history of essential hypertension, dementia, s/p left hip hemiarthroplasty in April [address] Rice presented to ED with chief complaint of ground-level fall at his SNF. Patient is a poor historian, and HPI was obtained from chart review and interviewing the patient. The patient was found rolled over off the bed at nursing facility, and when asked about it he is confabulating about the incidence. He admitted left hip pain but denied any headache, nausea or vomiting, chest pain, SOB, abdominal pain, any bowel or urinary symptoms or leg swelling. During our encounter his blood pressure was soft with 97/56, saturating 97% on 1 L NC. Physical examination was significant for left hip flexed and externally rotated. CBC revealed white count of 12.1, hemoglobin 10.2, BUN worsening to 44 and creatinine worsening to 1.8 from 22 and 1.[address] head was negative, hip pelvis x-ray was significant for acute intertrochanteric fracture of left hip, CXR negative, CT of the hip revealed acute trochanteric fracture of the left hip. He was right renal parenchymal scar formation, no hydronephrosis, small right kidney with renal cortical thinning. PMH: As mentioned above PSHx: Left hip hemiarthroplasty April 2024 Medicines: Acetaminophen 650, [place] 08/08/2024, Zofran, senna, melatonin, milk of mag, Fleet enema, Dulcolax, MiraLAX Allergies: No known allergies Family history: Unknown Social history: Coming from [facility] Nephrology consultation was done for worsening KATIE. 05/14/24: the patient underwent surgical fixation left hip. His vitals are. He stable, labs were significant for he chemistry panel revelaed improvement in creatinine from 1.8-1.2. More likely prerenal as Cr improved within a day after IV fluid, ruling out ATN. 05/15/2024: The patient was examined at the bedside this morning. He reported doing fairly well. His vitals were stable with, physical examination was significant for left hip under dressing, hemoglobin 9.7, chemistry panel significant for BUN 28 and creatinine 1.2, BUN/creatinine ratio 23. The patient underwent surgical fixation of left hip, and was transfused 2 units of PRBC. We will continue to monitor hemoglobin and renal panel, encourage oral rehydration. 05/16/24: The patient was interviewed and examined at bedside. He reported doing well. His vitals were stable, with blood pressure in 140s/90s, heart rate in 110s, saturating 96% on room air. Chemistry panel was significant for Hb 11.4, sodium 134, potassium 3.7, BUN 24 and creatinine trending down to 1.1 with EGFR greater than 60. COntinue with oral rehydration. Exam Vital Signs Temp Pulse Resp BP Pulse Ox O2 Del Method O2 Flow Rate 98.9 F 111 H 20 147/94 H 96 Room Air 2 05/16/24 16:00 05/16/24 16:00 05/16/24 16:00 05/16/24 16:00 05/16/24 16:00 05/16/24 16:00 05/16/24 04:00 Narrative Exam General: Elderly frail gentleman, No acute distress, Alert and Oriented x himself only HEENT: Moist mucous membranes, oropharynx clear Neck: Supple, No masses, No JVD CVS: S1S2 Regular rate and rhythm, No murmurs, rubs or gallops Lungs: Clear to auscultation with no accessory use, no wheeze no rhonchi Abd: Soft, NT/ND, +BS, no organomegaly Ext: Lt LL with clean dressing, no edema, peripheral pulses 2+ Skin: No rash Psych: Occasionally cooperative Objective Labs 05/16/24 11:23 05/16/24 11:23 Labs: Laboratory Results - last 24 hr 05/16/24 11:23 WBC 10.0 RBC 3.97 L Hgb 11.4 L Hct 34.6 L MCV 87 MCH 28.7 MCHC 32.9 RDW Std Deviation 46.1 H Plt Count 271 D Neut % (Auto) 77 Lymph % (Auto) 14 [place] % (Auto) 8 Eos % (Auto) 1 Baso % (Auto) 0 Neut # (Auto) 7.7 Lymph # (Auto) 1.4 [place] # (Auto) 0.8 Eos # (Auto) 0.1 Baso # (Auto) 0.0 Immature Gran # (Auto) 0.09 H Absolute Nucleated RBC 0.00 Immature Gran % 1 H Nucleated RBC % 0 Sodium 134 L Potassium 3.7 D Chloride 100 Carbon Dioxide 27.7 Anion Gap 6 L BUN 24 H Creatinine 1.1 Estim Creat Clear Calc 46.4 L eGFR > 60 BUN/Creatinine Ratio 22 H Glucose 91 Calculated Osmolality 272 L Calcium 8.7 Corrected Calcium 8.8 Phosphorus 1.5 L Albumin 3.9 D Quality Measures Quality Measures VTE prophylaxis (Eliquis ) Advance care planning discussed with:: other Assessment & Plan Assessment Current Active Medications: Generic Name Dose Route Start Last Admin Trade Name Freq PRN Reason Stop Dose Admin Acetaminophen 1,000 mg 05/12/24 08:38 Acetaminophen 500 Mg Tablet PO 06/10/24 17:02 Q6H PRN Fever >100.0 or pain 1-3 Hydrocodone Bitart/Acetaminophen 1 tab 05/14/24 11:36 Hydrocodone/Apap 5/325 Tablet PO 05/16/24 17:02 Q3HR PRN PAIN SCALE 4-6 (Moderate Apixaban 2.5 mg 05/15/24 09:00 05/15/24 08:35 Apixaban 2.5 Mg Tablet PO 06/14/24 08:59 2.5 mg BID KALLI Administration Hydromorphone HCl 0.5 mg 05/14/24 11:36 05/14/24 21:35 Hydromorphone Inj 2 Mg/Ml Vial IVP 05/17/24 13:50 0.5 mg Q3HR PRN Administration Pain 7-10 Cefazolin Sodium 2 gm in 100 mls @ 200 mls/hr 05/14/24 14:00 05/15/24 05:41 Ancef 2gm Ivpb IV 05/21/24 13:59 200 mls/hr Q8HR KALLI Administration Ondansetron HCl 4 mg 05/11/24 17:03 Ondansetron Inj 2 Mg/Ml Inj 2 Ml IV 06/10/24 17:02 Q6H PRN NAUSEA OR VOMITING Protocol Pantoprazole Sodium 40 mg 05/13/24 09:00 05/15/24 08:35 Pantoprazole Inj 40 Mg Vial IVP 06/12/24 08:59 40 mg QDAY KALLI Administration Quetiapine Fumarate 25 mg 05/11/24 21:00 05/14/24 21:35 Quetiapine Fumarate 25 Mg Tablet PO 06/10/24 20:59 25 mg HS KALLI Administration Sennosides 1 tab 05/11/24 17:09 Senna Tablet PO 06/10/24 17:08 QDAY PRN constipation Protocol Plan The patient is an 78-year-old male with significant past medical history of essential hypertension, dementia, s/p left hip hemiarthroplasty in April [address] Rice presented to ED with chief complaint of ground-level fall at his SNF was found to have acute intertrochanteric fracture of left hip further complicated by KATIE. Nephrology consultation was done for worsening KATIE. #KATIE, improving Likely prerenal in the setting of poor intake, further complicated by hip fracture with possible bleeding as Hb has been droping down. US Renal revealed rt parencymal scar formation, no hydronephrosis, small right kidney with renal cortical thinning. BUN worsening to 44 and creatinine worsening to 1.8 from 22 and 1.1 respectively during admission. Urine Na 36 less than 40 and BUN/Cr 24 greater than 20 s/o prerenal etiology. Urine electrolyte panel was significant for sodium 155, Cl 155 which are high, but his katie improved within a day ruling out ATN. 05/15/24: BUN 28, Cr 1.2 05/16: BUN 24 and Cr 1.1 -Avoid nephrotoxins -Encourage adequate oral rehydration, might need a feeder in the setting of dementia when PO diet is resumed -Repeat renal panel in the am #History of hypertension Currently BP soft -Continue to monitor BP #Acute anemia Likely blood loss anemia in the setting of hip Fx -Monitor H & H -Transfuse if Hb <7. #Left acute intertrochanteric hip fracture status post mechanical fall #L femoral neck hip fracture status post left hip hemiarthroplasty #Dementia -Management deferred to primary team Thank you for your opportunity to participate nephrology team in this patient care. The patient's management plan was discussed with my attending physician MD Eric Keita MD, PGY2 Attending Provider Attestation/Addendum Patient seen and examined with resident physician Dr. Daniels. Note reviewed, agree with findings and recommendations. Patient clinically seems to be dehydrated. Agree with fluids. Plan of care discussed with primary team. Creatinine markedly improved. Status post left hip surgery. Patient has advanced dementia Renal hutton stable for discharge
== END 2024-05-16 17:00 | disposition skilled nursing facility (03) | DRG 467 ==
LOC: SERX 14:22 → SERHOLD 17:24 → S3SX 19:52 → S3NX 05-15 17:59
PROVIDERS: Orthopaedic Surgery Adult Reconstructive Orthopaedic Surgery; Student in an Organized Health Care Education/Training Program; Admitting Provider Internal Medicine; Emergency Provider Emergency Medicine; Visit Provider Student in an Organized Health Care Education/Training Program
PROC: 0SWB0JZ Revision of Synthetic Substitute in Left Hip Joint, Open Approach (ICD-10-PCS; principal; 2024-05-14 07:30)
PROC: 0SWB0JZ Revision of Synthetic Substitute in Left Hip Joint, Open Approach (ICD-10-PCS; 2024-05-14 07:30)
DX: S72.142A Displaced intertrochanteric fracture of left femur, initial encounter for closed fracture (principal); D62 Acute posthemorrhagic anemia; N17.9 Acute kidney failure, unspecified; M97.02XA Periprosthetic fracture around internal prosthetic left hip joint, initial encounter; I10 Essential (primary) hypertension; E86.0 Dehydration; F03.C0 Unspecified dementia, severe, without behavioral disturbance, psychotic disturbance, mood disturbance, and anxiety; I35.8 Other nonrheumatic aortic valve disorders; W18.30XA Fall on same level, unspecified, initial encounter; Y92.129 Unspecified place in nursing home as the place of occurrence of the external cause
CPT/HCPCS: 36415; 70450; 71045; 72170; 73501; 73502; 73552; 73700; 76770; 80053; 80069; 81001; 82436; 82550; 82570; 83735; 84133; 84156; 84300; 84540; 85014; 85018; 85025; 85610; 85730; 86850; 86900; 86901; 86923; 87081; 93005; 96374; 97162; 99285; J0131; J0689; J1100; J2060; J2371; J2470; J2704; J3010; J3490; J7030; J7040; J7050; J7999; P9016; A9270; J1805

== ENCOUNTER 2024-06-12 15:02 | Outpatient (AMB) | payer MEDICARE, MEDICAID, SELFPAY ==
--- NOTE | 2024-06-12 15:13 | PD.ORTHCLVIS ---
Vital signs 06/12/24 15:14 Weight 61.689 kg Weight Measurement Method Estimated by Patient BP 120/81 Blood Pressure Source Automatic Cuff Blood Pressure Location Left Upper Arm Position Sitting Respiration 19 Pulse 110 H Pulse Source Monitor Temp 97.8 F Temp Source Temporal Artery Scan Pulse Oximetry (%) 94 L Oxygen Delivery Method Room Air Med/Allergies Allergies & Medications Allergies No Known Allergies Allergy (Verified 06/12/24 15:15) Medication Reconciliation melatonin 5 mg tablet 5 mg PO HS PRN Insomnia 04/17/24 [History Confirmed 06/12/24] multivit,tx with iron 27 ew-mjetoia-jeuut acid 0.4 mg-minerals tablet 1 tab PO QDAY 04/17/24 [History Confirmed 06/12/24] ondansetron 4 mg disintegrating tablet 4 mg PO Q6H PRN Nausea 04/17/24 [History Confirmed 06/12/24] bisacodyl 10 mg rectal suppository (Dulcolax (bisacodyl)) 10 mg AL Q72H PRN Constipation 04/18/24 [History Confirmed 06/12/24] polyethylene glycol 3350 17 gram/dose oral powder (ClearLax) 4 g PO QDAY PRN constipation #119 grams 04/21/24 [Rx Confirmed 06/12/24] hydrocodone 5 mg-acetaminophen 325 mg tablet 1 tab PO BID #10 tabs 04/22/24 [Rx Confirmed 06/12/24] acetaminophen 325 mg tablet 650 mg PO Q4H PRN pain 05/13/24 [History Confirmed 06/12/24] magnesium hydroxide 400 mg/5 mL oral suspension (Milk of Magnesia) 30 ml PO Q72H PRN constipation 05/13/24 [History Confirmed 06/12/24] sennosides 8.6 mg tablet (senna) 8.6 mg PO [id number] constipation 05/13/24 [History Confirmed 06/12/24] sodium phosphates 19 gram-7 gram/118 mL enema (Fleet Enema) 118 ml AL Q72H PRN constipation 05/13/24 [History Confirmed 06/12/24] apixaban 2.5 mg tablet (Eliquis) 2.5 mg PO BID 35 days #70 tabs 05/16/24 [Rx Confirmed 06/12/24] Exam Exam Patient is in no acute distress Breathing is nonlabored. In no respiratory distress. Bilateral extremities were evaluated and demonstrates sensation intact to light touch. Palpable pedal pulses are present. No significant edema is present. Leg lengths are equal. Left hip incision is clean dry and intact Assessment and Plan Problem List (1) Periprosthetic fracture around internal prosthetic left hip joint: Status: Acute Plan: Patient is doing well status post left hip Revision hemiarthroplasty. We need to see x-rays. He appears to be of equal length which is promising. We will see him back after his x-rays are done. He is at a rehab and he will likely get x-rays there. I am having difficulty getting a great history from his care provider who is with him given his dementia. It does not sound like he is ambulating very much Advanced Care Planning Discussion Advance care planning discussed with:: patient and other Office Procedures GNS Level of Care Nursing/Assessment Patient Status: Established Patient Nursing Assessment/Reassesment: Medication Reconciliation, Update PMH in EMR and Vital Signs Coordination of Care: Complex Care and Chronic Disease 1-5, Education Complex Pt/Fam, Consent,records obtained, informed consent, Results/Orders obtained and Staff clarify orders Established Patient Charge Established Patient Point Assignment: 95 Established Patient Point Charge: EP Level 3 (80-115) MA Intake Visit Data Collection New Patient or Established: Established Patient (seen at [facility] within 3 years) Reason for Visit:: F/U HIP FRACTURE Seen by Clinical Staff ONLY (RN/MA): No Infection Control Rn Required: No PCP or OBGYN visit in last 3 months: Yes Hx Now: No Do You Feel Safe at Home: Yes Authorities Contacted: N/A Questionairres Past Medical History Past Medical History Have you ever been diagnosed with any of the following: Neurological Problems Dementia: Yes Seizures: No Cardiology Problems Congestive Heart Failure: No Congenital Heart Disease: No Hypertension: Yes Hypotension: Yes Respiratory Problems Chronic Obstructive Pulmonary Disease (COPD): No Smoking: No Smoking Cessation Counseling: No Smoking Exposure: No Genital/Urinary Problems Renal Disease: No Endocrine Problems Diabetes Mellitus Type 1: No Diabetes Mellitus Type 2: No Psychologic Problems Anxiety: Yes Other Problems Falls: Yes Blood Transfusions: No Anesthesia Reactions: No Subjective Visit Visit for: follow up visit and hip (FRACTURE) Immunization / Flu Flu Vaccine in the Last 12 Months: No Flu Vaccine Exclusion Criteria: No Exclusion Criteria History of Present Illness Chief complaint: left hip pain Patient is a 78-year-old male with a left hip periprosthetic fracture after I periprosthetic hip fracture adjacent to a hemiarthroplasty. We converted him to a longstem hemiarthroplasty with cerclage cables. This is my first time seeing him since surgery. It has been exactly a month. He has not hip x-rays to view. His incisions. Pain Pain level (0-10): 0 Ambulatory data Ambulatory device: none Treatments Improvement with previous injections: No Improvement with PT: No Improvement with NSAIDS: no Review of Systems Review of Systems: All systems negative unless otherwise noted in HPI.
[2024-06-12 15:14] VITALS: BP 120/81; PULSE 110; RESP 19; TEMP 36.6; O2SAT 94
== END 2024-06-12 15:32 | disposition home or self-care (01) ==
LOC: HODSRG 15:02
PROVIDERS: Supervising Provider Orthopaedic Surgery Adult Reconstructive Orthopaedic Surgery; Visit Provider Orthopaedic Surgery Adult Reconstructive Orthopaedic Surgery
DX: M97.02XA Periprosthetic fracture around internal prosthetic left hip joint, initial encounter (principal); Z96.642 Presence of left artificial hip joint
CPT/HCPCS: 99213; G0463

== ENCOUNTER 2024-06-30 14:24 | Outpatient (AMB) | payer MEDICARE, MEDICAID, SELFPAY ==
--- NOTE | 2024-06-30 14:47 | PD.ORTHCLVIS ---
Vital signs 06/30/24 14:48 Height 1.73 m Height Method Stated Weight 56.245 kg Weight Measurement Method Standing Scale BMI 18.8 BP 93/67 Blood Pressure Source Automatic Cuff Blood Pressure Location Left Upper Arm Position Sitting Respiration 18 Pulse 107 H Pulse Source Monitor Temp 96.0 F L Temp Source Temporal Artery Scan Pulse Oximetry (%) 97 Oxygen Delivery Method Room Air Med/Allergies Allergies & Medications Allergies No Known Allergies Allergy (Verified 06/30/24 14:48) Medication Reconciliation melatonin 5 mg tablet 5 mg PO HS PRN Insomnia 04/17/24 [History Confirmed 06/30/24] multivit,tx with iron 27 xi-icjpsjh-ahslx acid 0.4 mg-minerals tablet 1 tab PO QDAY 04/17/24 [History Confirmed 06/30/24] ondansetron 4 mg disintegrating tablet 4 mg PO Q6H PRN Nausea 04/17/24 [History Confirmed 06/30/24] bisacodyl 10 mg rectal suppository (Dulcolax (bisacodyl)) 10 mg DC Q72H PRN Constipation 04/18/24 [History Confirmed 06/30/24] polyethylene glycol 3350 17 gram/dose oral powder (ClearLax) 4 g PO QDAY PRN constipation #119 grams 04/21/24 [Rx Confirmed 06/30/24] hydrocodone 5 mg-acetaminophen 325 mg tablet 1 tab PO BID #10 tabs 04/22/24 [Rx Confirmed 06/30/24] acetaminophen 325 mg tablet 650 mg PO Q4H PRN pain 05/13/24 [History Confirmed 06/30/24] magnesium hydroxide 400 mg/5 mL oral suspension (Milk of Magnesia) 30 ml PO Q72H PRN constipation 05/13/24 [History Confirmed 06/30/24] sennosides 8.6 mg tablet (senna) 8.6 mg PO [id number] constipation 05/13/24 [History Confirmed 06/30/24] sodium phosphates 19 gram-7 gram/118 mL enema (Fleet Enema) 118 ml DC Q72H PRN constipation 05/13/24 [History Confirmed 06/30/24] Exam Exam Patient is in no acute distress Breathing is nonlabored. In no respiratory distress. Bilateral extremities were evaluated and demonstrates sensation intact to light touch. Palpable pedal pulses are present. No significant edema is present. Leg lengths are equal. Left hip incision is clean dry and intact Assessment and Plan Problem List (1) Periprosthetic fracture around internal prosthetic left hip joint: Status: Acute Plan: Patient is doing well status post left hip Revision hemiarthroplasty. We need to see x-rays. He appears to be of equal length which is promising. He did get new x-rays at his rehab. They are extremely rotated and I see 3 obliques. The hip appears to be reduced in the socket.The hardware appears to be in good position. I would like to get better x-rays but he may be uncooperative which could explain the very poor imaging that I see Advanced Care Planning Discussion Advance care planning discussed with:: patient Office Procedures GNS Level of Care Nursing/Assessment Patient Status: Established Patient Nursing Assessment/Reassesment: Medication Reconciliation, Update PMH in EMR and Vital Signs Coordination of Care: Complex Care and Chronic Disease 1-5, Education Complex Pt/Fam, Consent,records obtained, informed consent, Results/Orders obtained and Staff clarify orders Established Patient Charge Established Patient Point Assignment: 95 Established Patient Point Charge: EP Level 3 (80-115) MA Intake Visit Data Collection New Patient or Established: Established Patient (seen at [facility] within 3 years) Reason for Visit:: F/U FRACTURE Seen by Clinical Staff ONLY (RN/MA): No Learning Disabilities Specialist Required: No PCP or OBGYN visit in last 3 months: Yes Hx Now: No Do You Feel Safe at Home: Yes Authorities Contacted: N/A Questionairres Past Medical History Past Medical History Have you ever been diagnosed with any of the following: Neurological Problems Dementia: Yes Seizures: No Cardiology Problems Congestive Heart Failure: No Congenital Heart Disease: No Hypertension: Yes Hypotension: Yes Respiratory Problems Chronic Obstructive Pulmonary Disease (COPD): No Smoking: No Smoking Cessation Counseling: No Smoking Exposure: No Genital/Urinary Problems Renal Disease: No Endocrine Problems Diabetes Mellitus Type 1: No Diabetes Mellitus Type 2: No Psychologic Problems Anxiety: Yes Other Problems Falls: Yes Blood Transfusions: No Anesthesia Reactions: No Subjective Visit Visit for: follow up visit Immunization / Flu Flu Vaccine in the Last 12 Months: No Flu Vaccine Exclusion Criteria: No Exclusion Criteria History of Present Illness Chief complaint: left hip pain Patient is a 78-year-old male with a left hip periprosthetic fracture after I periprosthetic hip fracture adjacent to a hemiarthroplasty. We converted him to a longstem hemiarthroplasty with cerclage cables. He has severe dementia and he reports his pain is well-controlled Pain Pain level (0-10): 0 Ambulatory data Ambulatory device: other (specify) (WHEELCHAIR) Treatments Improvement with previous injections: No Improvement with PT: No Improvement with NSAIDS: no Review of Systems Review of Systems: All systems negative unless otherwise noted in HPI.
[2024-06-30 14:48] VITALS: BP 93/67; PULSE 107; RESP 18; TEMP 35.6; O2SAT 97; BMI 18.8
== END 2024-06-30 14:56 | disposition home or self-care (01) ==
LOC: HODSRG 14:24
PROVIDERS: Supervising Provider Orthopaedic Surgery Adult Reconstructive Orthopaedic Surgery; Visit Provider Orthopaedic Surgery Adult Reconstructive Orthopaedic Surgery
DX: M97.02XD Periprosthetic fracture around internal prosthetic left hip joint, subsequent encounter (principal); F03.90 Unspecified dementia, unspecified severity, without behavioral disturbance, psychotic disturbance, mood disturbance, and anxiety; I10 Essential (primary) hypertension
CPT/HCPCS: 99213; G0463

== ENCOUNTER 2024-08-04 13:07 | Outpatient (AMB) | payer MEDICARE, MEDICAID, SELFPAY ==
[2024-08-04 13:50] VITALS: BP 120/78; PULSE 99; RESP 17; TEMP 36.7; O2SAT 94; BMI 19.8
--- NOTE | 2024-08-04 13:50 | PD.ORTHCLVIS ---
Vital signs 08/04/24 13:50 Height 1.73 m Height Method Stated Weight 59.421 kg Weight Measurement Method Stated by Patient BMI 19.8 BP 120/78 Blood Pressure Source Automatic Cuff Blood Pressure Location Left Upper Arm Position Sitting Respiration 17 Pulse 99 Pulse Source Monitor Temp 98.1 F Temp Source Temporal Artery Scan Pulse Oximetry (%) 94 L Oxygen Delivery Method Room Air Med/Allergies Allergies & Medications Allergies No Known Allergies Allergy (Verified 08/04/24 13:51) Medication Reconciliation melatonin 5 mg tablet 5 mg PO HS PRN Insomnia 04/17/24 [History Confirmed 08/04/24] multivit,tx with iron 27 yu-lmpwlic-ywsfc acid 0.4 mg-minerals tablet 1 tab PO QDAY 04/17/24 [History Confirmed 08/04/24] ondansetron 4 mg disintegrating tablet 4 mg PO Q6H PRN Nausea 04/17/24 [History Confirmed 08/04/24] bisacodyl 10 mg rectal suppository (Dulcolax (bisacodyl)) 10 mg WA Q72H PRN Constipation 04/18/24 [History Confirmed 08/04/24] polyethylene glycol 3350 17 gram/dose oral powder (ClearLax) 4 g PO QDAY PRN constipation #119 grams 04/21/24 [Rx Confirmed 08/04/24] hydrocodone 5 mg-acetaminophen 325 mg tablet 1 tab PO BID #10 tabs 04/22/24 [Rx Confirmed 08/04/24] acetaminophen 325 mg tablet 650 mg PO Q4H PRN pain 05/13/24 [History Confirmed 08/04/24] magnesium hydroxide 400 mg/5 mL oral suspension (Milk of Magnesia) 30 ml PO Q72H PRN constipation 05/13/24 [History Confirmed 08/04/24] sennosides 8.6 mg tablet (senna) 8.6 mg PO [id number] constipation 05/13/24 [History Confirmed 08/04/24] sodium phosphates 19 gram-7 gram/118 mL enema (Fleet Enema) 118 ml WA Q72H PRN constipation 05/13/24 [History Confirmed 08/04/24] Exam Exam Patient is in no acute distress Breathing is nonlabored. In no respiratory distress. Bilateral extremities were evaluated and demonstrates sensation intact to light touch. Palpable pedal pulses are present. No significant edema is present. Leg lengths are equal. Left hip incision is clean dry and intact X-rays demonstrate a long stem hip replacement in good alignment and position Assessment and Plan Problem List (1) Periprosthetic fracture around internal prosthetic left hip joint: Status: Acute Plan: Patient is doing well status post left hip Revision hemiarthroplasty. He is doing well and reports minimal pain. His x-rays look great. Will see him back in 3 months for routine follow-up Advanced Care Planning Discussion Advance care planning discussed with:: patient Office Procedures GNS Level of Care Nursing/Assessment Patient Status: Established Patient Nursing Assessment/Reassesment: Medication Reconciliation, Update PMH in EMR and Vital Signs Coordination of Care: Complex Care and Chronic Disease 1-5, Consent,records obtained, informed consent, Education Simp Pt/Fam, Results/Orders obtained and Staff clarify orders Special Needs: Language special needs (MARSHALLESE ) Established Patient Charge Established Patient Point Assignment: 90 Established Patient Point Charge: EP Level 3 (80-115) MA Intake Visit Data Collection New Patient or Established: Established Patient (seen at [facility] within 3 years) Reason for Visit:: 1 MNTH POST OP Seen by Clinical Staff ONLY (RN/MA): No Sales And Support Center Agent Required: Yes PCP or OBGYN visit in last 3 months: Yes Hx Now: No Do You Feel Safe at Home: Yes Authorities Contacted: N/A Questionairres Past Medical History Past Medical History Have you ever been diagnosed with any of the following: Neurological Problems Dementia: Yes Seizures: No Cardiology Problems Congestive Heart Failure: No Congenital Heart Disease: No Hypertension: Yes Hypotension: Yes Respiratory Problems Chronic Obstructive Pulmonary Disease (COPD): No Smoking: No Smoking Cessation Counseling: No Smoking Exposure: No Genital/Urinary Problems Renal Disease: No Endocrine Problems Diabetes Mellitus Type 1: No Diabetes Mellitus Type 2: No Psychologic Problems Anxiety: Yes Other Problems Falls: Yes Blood Transfusions: No Anesthesia Reactions: No Subjective Visit Visit for: follow up visit and post op #2 Immunization / Flu Flu Vaccine in the Last 12 Months: Yes Flu Vaccine Exclusion Criteria: Already Received History of Present Illness Chief complaint: left hip pain Patient is a 78-year-old male with a left hip periprosthetic fracture after I periprosthetic hip fracture adjacent to a hemiarthroplasty. We converted him to a longstem hemiarthroplasty with cerclage cables. He has severe dementia and he reports his pain is well-controlled Personal History Red flag PMH: none Pain Pain level (0-10): 0 Ambulatory data Ambulatory device: other (specify) (WHEELCHAIR ) Treatments Improvement with previous injections: No Improvement with PT: No Improvement with NSAIDS: no Review of Systems Review of Systems: All systems negative unless otherwise noted in HPI.
== END 2024-08-04 14:07 | disposition home or self-care (01) ==
LOC: HODSRG 13:07
PROVIDERS: Supervising Provider Orthopaedic Surgery Adult Reconstructive Orthopaedic Surgery; Visit Provider Orthopaedic Surgery Adult Reconstructive Orthopaedic Surgery
DX: M97.02XD Periprosthetic fracture around internal prosthetic left hip joint, subsequent encounter (principal); I10 Essential (primary) hypertension; F03.C0 Unspecified dementia, severe, without behavioral disturbance, psychotic disturbance, mood disturbance, and anxiety
CPT/HCPCS: 99213; G0463

== ENCOUNTER 2024-12-15 13:18 | Outpatient (AMB) | payer MEDICARE, MEDICAID, SELFPAY ==
[2024-12-15 13:39] VITALS: BP 102/58; PULSE 109; RESP 19; TEMP 36.2; O2SAT 88; BMI 20.5
--- NOTE | 2024-12-15 13:39 | PD.ORTHCLVIS ---
Vital signs 12/15/24 13:39 Height 1.73 m Height Method Stated Weight 61.235 kg Weight Measurement Method Estimated by Patient BMI 20.5 BP 102/58 L Blood Pressure Source Automatic Cuff Blood Pressure Location Left Upper Arm Position Sitting Respiration 19 Pulse 109 H Pulse Source Monitor Temp 97.1 F Temp Source Temporal Artery Scan Pulse Oximetry (%) 88 L Oxygen Delivery Method Room Air Med/Allergies Allergies & Medications Allergies No Known Allergies Allergy (Verified 08/04/24 13:51) Exam Exam Patient is in no acute distress Breathing is nonlabored. In no respiratory distress. Bilateral extremities were evaluated and demonstrates sensation intact to light touch. Palpable pedal pulses are present. No significant edema is present. Leg lengths are equal. Left hip incision is clean dry and intact X-rays demonstrate a long stem hip replacement in good alignment and position Assessment and Plan Problem List (1) Periprosthetic fracture around internal prosthetic left hip joint: Status: Acute Plan: Patient is doing well status post left hip Revision hemiarthroplasty. He is doing well and reports minimal pain. At this point he is doing well. We will see him on as-needed basis Advanced Care Planning Discussion Advance care planning discussed with:: patient Office Procedures GNS Level of Care Nursing/Assessment Patient Status: Established Patient Nursing Assessment/Reassesment: Medication Reconciliation, Update PMH in EMR and Vital Signs Coordination of Care: Complex Care and Chronic Disease 1-5, Education Complex Pt/Fam, Consent,records obtained, informed consent, Results/Orders obtained and Staff clarify orders Established Patient Charge Established Patient Point Assignment: 95 Established Patient Point Charge: EP Level 3 (80-115) MA Intake Visit Data Collection New Patient or Established: Established Patient (seen at [facility] within 3 years) Seen by Clinical Staff ONLY (RN/MA): No Sales Representative Printing Supplies Required: Yes PCP or OBGYN visit in last 3 months: Yes Hx Now: No Do You Feel Safe at Home: Yes Authorities Contacted: N/A Questionairres Past Medical History Past Medical History Have you ever been diagnosed with any of the following: Neurological Problems Dementia: Yes Seizures: No Cardiology Problems Congestive Heart Failure: No Congenital Heart Disease: No Hypertension: Yes Hypotension: Yes Respiratory Problems Chronic Obstructive Pulmonary Disease (COPD): No Smoking: No Smoking Cessation Counseling: No Smoking Exposure: No Genital/Urinary Problems Renal Disease: No Endocrine Problems Diabetes Mellitus Type 1: No Diabetes Mellitus Type 2: No Psychologic Problems Anxiety: Yes Other Problems Falls: Yes Blood Transfusions: No Anesthesia Reactions: No Subjective Visit Visit for: follow up visit and post op #2 Immunization / Flu Flu Vaccine in the Last 12 Months: Yes Flu Vaccine Exclusion Criteria: Already Received History of Present Illness Chief complaint: left hip pain Patient is a 79-year-old male with a left hip periprosthetic fracture after I periprosthetic hip fracture adjacent to a hemiarthroplasty. We converted him to a longstem hemiarthroplasty with cerclage cables. He has severe dementia and he reports his pain is well-controlled. He is now 7 months out from surgery and reports minimal pain Personal History Red flag PMH: none Pain Pain level (0-10): 0 Ambulatory data Ambulatory device: other (specify) (WHEELCHAIR ) Treatments Improvement with previous injections: No Improvement with PT: No Improvement with NSAIDS: no Review of Systems Review of Systems: All systems negative unless otherwise noted in HPI.
== END 2024-12-15 14:06 | disposition home or self-care (01) ==
LOC: HODSRG 13:18
PROVIDERS: Supervising Provider Orthopaedic Surgery Adult Reconstructive Orthopaedic Surgery; Visit Provider Orthopaedic Surgery Adult Reconstructive Orthopaedic Surgery
DX: M97.02XD Periprosthetic fracture around internal prosthetic left hip joint, subsequent encounter (principal); F03.C0 Unspecified dementia, severe, without behavioral disturbance, psychotic disturbance, mood disturbance, and anxiety; I10 Essential (primary) hypertension
CPT/HCPCS: 99213; G0463